=== PATIENT | male | born 1940 | race Caucasian/White ===

== ENCOUNTER → 2017-04-10 | Outpatient (CLI) | payer MEDICARE, OTHER ==
[2017-04-10 14:13] LABS: INTERNATIONAL RATION (INR) 1.11; PROTHROMBIN TIME 15.1 SEC (11.4-15.4)
== END ==
LOC: LAB 13:53
PROVIDERS: ATTEND Physician Assistant
DX: R79.1 Abnormal coagulation profile (principal); Z79.01 Long term (current) use of anticoagulants
CPT/HCPCS: 36415; 85610

== ENCOUNTER → 2017-05-20 | Outpatient (CLI) | payer MEDICARE, OTHER ==
[2017-05-20 12:04] LABS: INTERNATIONAL RATION (INR) 1.06; PROTHROMBIN TIME 14.5 SEC (11.4-15.4)
== END ==
LOC: LAB 11:48
PROVIDERS: ATTEND Physician Assistant
DX: Z51.81 Encounter for therapeutic drug level monitoring (principal); Z79.01 Long term (current) use of anticoagulants
CPT/HCPCS: 36415; 85610

== ENCOUNTER 2017-06-19 09:40 | Inpatient (IN) | payer MEDICARE, OTHER ==
--- NOTE | 2017-06-19 09:54 | ER Document Report ---
ED GI/ - General Stated Complaint: ABDOMINAL PAIN Time Seen by Provider: 06/19/17 09:54 Mode of Arrival: Medic Information source: Patient Notes: 77 yo male came by EMS, his roomate called EMS. c/o worsening left low abdomen hernia that starated 3 days ago resulting from hard coughing from dx Bronchitis (prednisone-augmentin), no sleep last night due to pain that has radiated to the lower right abomen. PCP: Goldie at [facility]. PMH: Afib, aortic valve replacement (TAVR), pacemaker,COPD, PVD, prostate cancer (injection-radiation) emphysema, spinal stenosis(pain), no abdominal surgeries. Last FM 2 days ago- normal. Takes Warfarin 5mg and digoxin 0.25. TRAVEL OUTSIDE OF THE [place] IN LAST 30 DAYS: No - Related Data Allergies/Adverse Reactions: No Known Drug Allergies Allergy (Verified 06/19/17 10:08) bees Allergy (Uncoded 06/19/17 10:08) Past Medical History - General Information source: Patient - Social History Smoking Status: Current Every Day Smoker Frequency of alcohol use: None Drug Abuse: None Lives with: Friend Family History: Reviewed & Not Pertinent - Past Medical History Cardiac Medical History: Reports: Hx Atrial Fibrillation, Hx Peripheral Vascular Disease, Hx Heart Murmur, Other - aortic valve replacement Pulmonary Medical History: Reports: Hx COPD Malignancy Medical History: Reports Hx Prostate Cancer Past Surgical History: Reports: Hx Cardiac Surgery - TAVR aortic valve, Hx Pacemaker Review of Systems - Review of Systems Constitutional: No symptoms reported EENT: No symptoms reported Cardiovascular: No symptoms reported Respiratory: See HPI Gastrointestinal: See HPI Genitourinary: No symptoms reported Male Genitourinary: No symptoms reported Musculoskeletal: No symptoms reported Skin: No symptoms reported Hematologic/Lymphatic: No symptoms reported Neurological/Psychological: No symptoms reported Physical Exam - Vital signs Vitals: Temp Pulse Resp BP Pulse Ox 98.8 F 96 22 H 133/52 H 81 L 06/19/17 09:51 06/19/17 09:51 06/19/17 09:51 06/19/17 09:51 06/19/17 09:51 Interpretation: Tachycardic - mild, Hypoxic - General General appearance: Appears well, Alert - HEENT Head: Normocephalic, Atraumatic Eyes: Normal Conjunctiva: Normal Pupils: PERRL Mucous membranes: Dry Pharynx: Normal Neck: Supple. No: Lymphadenopathy - Respiratory Respiratory status: No respiratory distress Chest status: Nontender Breath sounds: Rales - right base Chest palpation: Normal - Cardiovascular Rhythm: Regular Heart sounds: Normal auscultation Murmur: No - Abdominal Inspection: Normal Distension: No distension Bowel sounds: Normal Tenderness: Tender - mass left pelvis Organomegaly: No organomegaly - Back Back: Normal, Nontender. No: CVA tenderness - Extremities General upper extremity: Normal inspection, Nontender, Normal color, Normal ROM , Normal temperature General lower extremity: Normal inspection, Nontender, Normal color, Normal ROM , Normal temperature, Normal weight bearing. No: Cande's sign - Neurological Neuro grossly intact: Yes Cognition: Normal Orientation: AAOx4 [place] Coma Scale Eye Opening: Spontaneous [place] Coma Scale Verbal: Oriented [place] Coma Scale Motor: Obeys Commands [place] Coma Scale Total: 15 Speech: Normal Motor strength normal: LUE, RUE, LLE, RLE Sensory: Normal - Psychological Associated symptoms: Normal affect, Normal mood - Skin Skin Temperature: Warm Skin Moisture: Dry Skin Color: Normal Skin irregularity: negative: Rash Course - Re-evaluation Re-evalutation: 06/19/17 13:[address] Carpenter and will get the patient admitted for the right lower lobe pneumonia. I also consulted with Dr. Quesada the surgeon about the mass in his left lower quadrant he suspects that it may be a walled hematoma. The patient' s INR is 2.7 he said to hold the warfarin. Patient is requiring 3 L nasal cannula and the pulse ox is 95%. 06/19/17 13:[address] Obregon for hospitalist admission for pneumonia, LLQ mass 06/19/17 13:06 06/19/17 13:26 Dr. Quesada saw the patient and believes that this is a left lower quadrant walled hematoma recommends hematocrit every 8 hours a type and screen and to hold the Coumadin. He did say that the patient can be on a clear liquid diet. I am pending Dr. Obregon calling me back for admission. 06/19/17 13:42 Dr. Weinberg the hospitalist will admit the patient and I told him what Dr. Quesada recommended. - Vital Signs Vital signs: Temp Pulse Resp BP Pulse Ox 99.7 F 77 14 115/48 L 91 L 06/19/17 20:08 06/19/17 20:08 06/19/17 16:42 06/19/17 20:08 06/19/17 20:08 - Laboratory Result Diagrams: 06/19/17 18:00 06/19/17 09:01 Laboratory results interpreted by me: 06/19/17 06/19/17 06/19/17 09:01 09:01 09:01 WBC 24.8 H RBC 3.94 L Hgb 12.8 L Hct 37.6 L RDW 16.0 H Lymphocytes % Lymphocytes % (Manual) 12 L Absolute Neutrophils Abs Neuts (Manual) 18.4 H Absolute Monocytes Abs Monocytes (Manual) 3.2 H PT 30.0 H APTT 51.3 H Chloride 95 L Carbon Dioxide 35 H BUN 27 H Glucose 116 H Urine Protein Urine Urobilinogen 06/19/17 06/19/17 11:50 14:22 WBC 19.0 H RBC 3.22 L Hgb 10.6 L D Hct 30.8 L RDW 16.2 H Lymphocytes % 11.5 L Lymphocytes % (Manual) Absolute Neutrophils 14.1 H Abs Neuts (Manual) Absolute Monocytes 2.4 H Abs Monocytes (Manual) PT APTT Chloride Carbon Dioxide BUN Glucose Urine Protein 100 H Urine Urobilinogen 4.0 H Discharge - Discharge Clinical Impression: Abdominal or pelvic swelling, mass, or lump, left lower quadrant, Hematoma RLL pneumonia Qualifiers: Pneumonia type: due to unspecified organism Qualified Code(s): J18.1 - Lobar pneumonia, unspecified organism Atrial fibrillation Qualifiers: Atrial fibrillation type: unspecified Qualified Code(s): I48.91 - Unspecified atrial fibrillation Abdominal pain Qualifiers: Abdominal location: left lower quadrant Qualified Code(s): R10.32 - Left lower quadrant pain Condition: Stable Disposition: ADMITTED INPATIENT Admitting Provider: Hospitalist Unit Admitted: Telemetry
[2017-06-19] MEDS ORDERED: NORMAL SALINE 1000 ML 1,000 ML IV ONE (10:18)
[2017-06-19] MEDS ORDERED: MORPHINE SULFATE 10 MG/ML INJ IV ONE (10:20)
[2017-06-19] MEDS ORDERED: ONDANSETRON HCL INJ/PF 4 MG/2 ML SDV IV ONE (10:20)
[2017-06-19 10:52] LABS: HEMATOCRIT 37.6 % (37.9-51.0); HEMOGLOBIN 12.8 g/dL (13.5-17.0); MEAN CORPUSCULAR HEMOGLOBIN 32.4 pg (27.0-33.4); MEAN CORPUSCULAR HGB CONC 33.9 g/dL (32.0-36.0); MEAN CORPUSCULAR VOLUME 96 fl (80-97); PLATELET COUNT 258 10^3/uL (150-450); RED BLOOD COUNT 3.94 10^6/uL (4.35-5.55); WHITE BLOOD COUNT 24.8 10^3/uL (4.0-10.5)
[2017-06-19 11:16] LABS: PARTIAL THROMBOPLASTIN TIME 51.3 SEC (23.5-35.8)
[2017-06-19 11:20] LABS: ABSOLUTE MONOCYTES # (MANUAL) 3.2 10^3/uL (0.1-1.4); ABSOLUTE NEUTROPHILS# (MANUAL) 18.4 10^3/uL (1.7-8.2); ALANINE AMINOTRANSFERASE 32 U/L (21-72); ALBUMIN 3.8 g/dL (3.5-5.0); ALKALINE PHOSPHATASE 93 U/L (38-126); ANION GAP 10 (5-19); ASPARTATE AMINO TRANSFERASE 22 U/L (17-59); BASOPHILS % (MANUAL) 0 % (0-2); BILIRUBIN,DIRECT 0.4 mg/dL (0.0-0.4); BILIRUBIN,TOTAL 1.2 mg/dL (0.2-1.3); BLOOD UREA NITROGEN 27 mg/dL (7-20); CALCIUM 9.4 mg/dL (8.4-10.2); CARBON DIOXIDE 35 mmol/L (22-30); CHLORIDE 95 mmol/L (98-107); DIGOXIN 1.38 ng/mL (0.8-2.0); EOSINOPHILS % (MANUAL) 1 % (0-6); GLUCOSE 116 mg/dL (75-110); LIPASE 80.1 U/L (23-300); LYMPHOCYTES % (MANUAL) 12 % (13-45); MONOCYTES % (MANUAL) 13 % (3-13); POTASSIUM 4.4 mmol/L (3.6-5.0); SEGMENTED NEUTROPHILS % (MAN) 74 % (42-78); SODIUM 140.4 mmol/L (137-145); TOTAL CELLS COUNTED 100; TOTAL PROTEIN 6.7 g/dL (6.3-8.2)
[2017-06-19 11:22] LABS: ANISOCYTOSIS 1+
[2017-06-19 11:23] LABS: PLATELET COMMENT ADEQUATE; PLATELET LARGE PRESENT
[2017-06-19] MEDS ORDERED: PIPERACILLIN/TAZOBACTAM 3.375 GM VIAL IV ONE (11:43)
[2017-06-19] MEDS ORDERED: VANCOMYCIN HCL INJ 1000 MG VIAL IV ONE ×2 (11:54→14:34)
--- NOTE | 2017-06-19 12:10 | RADIOLOGY REPORT (SQ) ---
EXAM DESCRIPTION: CT ABD/PELVIS WITH IV ONLY COMPLETED DATE/TIME: 06/19/2017 11:56 am REASON FOR STUDY: abd pain COMPARISON: None. TECHNIQUE: CT scan of the abdomen and pelvis performed using helical scanning technique with dynamic intravenous contrast injection. No oral contrast. Images reviewed with lung, soft tissue, and bone windows. Reconstructed coronal and sagittal MPR images reviewed. Delayed images for evaluation of the urinary system also acquired. All images stored on PACS. All CT scanners at this facility use dose modulation, iterative reconstruction, and/or weight based d osing when appropriate to reduce radiation dose to as low as reasonably achievable (ALARA). [facility]: Dose Right [facility]: CareDose [facility]: Dose Right [facility]: Teradose 4D [facility]: [email or web address] CONTRAST TYPE AND DOSE: contrast/concentration: Isovue 370.00 mg/ml; Total Contrast Delivered: 74.0 ml; Total Saline Delivered: 66.1 ml RENAL FUNCTION: Creatinine 1.02 RADIATION DOSE: CT Rad equipment meets quality standard of care and radiation dose reduction techniq ues were employed. CTDIvol: 6.8 - 9.0 mGy. DLP: 887 mGy-cm.. LIMITATIONS: None. FINDINGS: LOWER CHEST: See separate report of the CT of the chest. LIVER: Normal size. No masses. No dilated ducts. SPLEEN: Normal size. No focal lesions. PANCREAS: No masses. No significant calcifications. No adjacent inflammation or peripancreatic fluid collections. Pancreatic duct not dilated. GALLBLADDER: Gallstones. No inflammatory changes to suggest cholecystitis. ADRENAL GLANDS: No significant masses or asymmetry. RIGHT KIDNEY AND URETER: No solid masses. No significant calcifications. No hydronephrosis or hyd roureter. LEFT KIDNEY AND URETER: No solid masses. No significant calcifications. No hydronephrosis or hydr oureter. AORTA AND VESSELS: No aneurysm. No dissection. Renal arteries, SMA, celiac without stenosis. RETROPERITONEUM: No retroperitoneal adenopathy, hemorrhage or masses. BOWEL AND PERITONEAL CAVITY: No masses or inflammatory changes. No free fluid or peritoneal masses. APPENDIX: Not visualized. PELVIS: The bladder is thick walled at 1.1 cm. Anterior and left of the bladder is a E heterogeneous soft tissue mass measuring 9.4 x 8 x 10 cm. Some central low density. No enhancement. Cannot be s eparated from the left abdominal wall. ABDOMINAL WALL: See above. BONES: Chronic degenerative changes. OTHER: No other significant finding. IMPRESSION: Pelvic mass on the left which cannot be from the abdominal wall. Differential is tumor versus diffuse hemorrhage. Thickened of the lateral wall Gallstones TECHNICAL DOCUMENTATION: JOB ID: [id number] Quality ID # [id number]: Final reports with documentation of one or more dose reduction techniques (e.g., Au tomated exposure control, adjustment of the mA and/or kV according to patient size, use of iterative reconstruction technique) 2010 [employer]- All Rights Reserved Reading location - IP/workstation name: [email or web address]
[2017-06-19 12:13] LABS: APPEARANCE,URINE CLEAR; BILIRUBIN,URINE NEGATIVE (NEGATIVE); COLOR,URINE YELLOW; GLUCOSE, URINE NEGATIVE (NEGATIVE); KETONES,URINE NEGATIVE (NEGATIVE); LEUKOCYTE ESTERASE,URINE NEGATIVE (NEGATIVE); NITRITE,URINE NEGATIVE (NEGATIVE); PROTEIN,URINE 100 mg/dL (NEGATIVE); URINE SPECIFIC GRAVITY 1.025
--- NOTE | 2017-06-19 12:23 | RADIOLOGY REPORT (SQ) ---
EXAM DESCRIPTION: CT CHEST WITHOUT COMPLETED DATE/TIME: 06/19/2017 11:56 am REASON FOR STUDY: rales right base, elevated white count COMPARISON: None. TECHNIQUE: CT scan performed of the chest without intravenous contrast. Images reviewed with lung, soft tissue and bone windows. Reconstructed coronal and sagittal MPR images reviewed. All images st ored on PACS. All CT scanners at this facility use dose modulation, iterative reconstruction, and/or weight based d osing when appropriate to reduce radiation dose to as low as reasonably achievable (ALARA). [facility]: Dose Right [facility]: CareDose [facility]: Dose Right [facility]: Teradose 4D [facility]: [employer] RADIATION DOSE: CT Rad equipment meets quality standard of care and radiation dose reduction techniq ues were employed. CTDIvol: 9.2 mGy. DLP: 337 mGy-cm. mGy. LIMITATIONS: Artifact associated with right side battery pack and pacemaker. FINDINGS: LUNGS AND PLEURA: Centrilobular emphysema. 2 cm pleural-based nodule left upper lobe. Se gmental airspace disease in the right lower lobe. No effusions. HILAR AND MEDIASTINAL STRUCTURES: Small mediastinal nodes measuring less than 1 cm in short axis. HEART AND VASCULAR STRUCTURES: Cardiomegaly. Prosthetic aortic valve. No pericardial effusion. UPPER ABDOMEN: See separate report of the CT of the abdomen. THYROID AND OTHER SOFT TISSUES: No masses. No adenopathy. BONES: Lytic lesion left rib adjacent to pleural-based mass. Several healed left rib fractures. HARDWARE: See above. OTHER: No other significant findings. IMPRESSION: 1. COPD. Right lower lobe pneumonia. 2. 2 cm nodule left upper lobe suspicious for carcinoma. TECHNICAL DOCUMENTATION: JOB ID: [id number] Quality ID # [id number]: Final reports with documentation of one or more dose reduction techniques (e.g., Au tomated exposure control, adjustment of the mA and/or kV according to patient size, use of iterative reconstruction technique) 2010 [employer]- All Rights Reserved Reading location - IP/workstation name: [email or web address]
[2017-06-19 12:25] LABS: VENOUS BLOOD BASE EXCESS 3.8 mmol/L; VENOUS BLOOD HCO3 30.2 mmol/L (20-32); VENOUS BLOOD PCO2 53.6 mmHg (35-63); VENOUS BLOOD PH 7.37 (7.30-7.42)
[2017-06-19] MEDS ORDERED: NORMAL SALINE 1000 ML 500 ML IV ONE ×2 (12:37→21:51)
[2017-06-19] MEDS: PIPERACILLIN SODIUM/TAZOBACTAM 3.375 GM in NORMAL SALINE 100 ML IV SCH (12:47)
[2017-06-19] MEDS ORDERED: LEVALBUTEROL HCL NEB 1.25 MG/3 ML AMPUL NEB PRN (14:22)
[2017-06-19 14:36] LABS: ABSOLUTE BASOPHILS # (AUTO) 0.2 10^3/uL (0.0-0.2); ABSOLUTE EOSINOPHILS # (AUTO) 0.1 10^3/uL (0.0-0.6); ABSOLUTE LYMPHOCYTES (AUTO) 2.2 10^3/uL (0.5-4.7); ABSOLUTE MONOCYTES (AUTO) 2.4 10^3/uL (0.1-1.4); ABSOLUTE NEUT (AUTO) 14.1 10^3/uL (1.7-8.2); BASOPHILS % (AUTO) 0.8 % (0-2); EOSINOPHILS % (AUTO) 0.4 % (0-6); HEMATOCRIT 30.8 % (37.9-51.0); LYMPHOCYTES % (AUTO) 11.5 % (13-45); MEAN CORPUSCULAR HEMOGLOBIN 32.9 pg (27.0-33.4); MEAN CORPUSCULAR HGB CONC 34.4 g/dL (32.0-36.0); MEAN CORPUSCULAR VOLUME 96 fl (80-97); MONOCYTES % (AUTO) 12.9 % (3-13); PLATELET COUNT 196 10^3/uL (150-450); RED BLOOD COUNT 3.22 10^6/uL (4.35-5.55); RED CELL DISTRIBUTION WIDTH 16.2 % (11.5-14.0); SEGMENTED NEUTROPHILS % (AUTO) 74.4 % (42-78); TOTAL CELLS COUNTED % (AUTO) 100 %
[2017-06-19] MEDS ORDERED: GUAIFENESIN 600 MG TABLET.SA PO PRN (14:38)
[2017-06-19] MEDS ORDERED: MELATONIN 5 MG TABLET PO PRN (14:38)
[2017-06-19] MEDS ORDERED: SENNOSIDES 8.6 MG PO PRN ×2 (14:38→20:19)
[2017-06-19] MEDS ORDERED: ONDANSETRON HCL INJ/PF 4 MG/2 ML SDV IV PRN (14:38)
[2017-06-19 14:39] LABS: HEMOGLOBIN 10.6 g/dL (13.5-17.0)
[2017-06-19] MEDS ORDERED: PHYTONADIONE INJ 1 MG/0.5 ML DISP.SYRIN INJ ONE (14:45)
[2017-06-19] MEDS ORDERED: PIPERACILLIN/TAZOBACTAM 3.375 GM VIAL IV SCH (14:45)
--- NOTE | 2017-06-19 15:28 | PDOC CONSULTATION ---
Consultation Consult Date: 06/19/17 Consult reason:: LLQ/Pelvic pains with Hematoma on CT scan History of Present Illness Admission Date/PCP: 06/19/17 14:30 YUMIKO ZAMBRANO PA-C Patient complains of: LLQ/Pelvic pains History of Present Illness: NATHANAEL LYONS is a 77 year old male on coumadin for AFib and aortic valve replacement c/o LLQ/pelvic pains for the past 2-3 days. Patient has been having severe bouts of coughing past few days. History of Prostate ca radiation tx. Past Medical History Cardiac Medical History: Reports: Atrial Fibrillation Pulmonary Medical History: Reports: Chronic Obstructive Pulmonary Disease (COPD) Musculoskeltal Medical History: Reports: Arthritis - back pains and had needle injections Past Surgical History Past Surgical History: Reports: Orthopedic Surgery - bilateral knee meniscus repair, Pacemaker, Valve Replacement Social History Smoking Status: Current Every Day Smoker Cigarettes Packs Per Day: 0.3 Frequency of Alcohol Use: Occasional - Advance Directive Resuscitation Status: Full Code Family History Parental Family History Reviewed: Yes - mother had aortic valve replacement but age 89 Children Family History Reviewed: No Sibling(s) Family History Reviewed.: No Medication/Allergy Home Medications: Amoxicillin/Potassium Clav [Amox-Clav 875-125 mg Tablet] 1 each PO BID 06/19/17 Digoxin [Lanoxin 0.125 mg Tablet] 0.25 mg PO DAILY 06/19/17 Gabapentin 600 mg PO BID 06/19/17 Guaifenesin [Mucus ER] 600 mg PO Q12H PRN 06/19/17 Melatonin 5 mg PO QHS PRN 06/19/17 Prednisone 20 mg PO DAILY 06/19/17 Sennosides [Natural Laxative] 8.6 mg PO ASDIR PRN 06/19/17 Warfarin Sodium 5 mg PO DAILY 06/19/17 Allergies/Adverse Reactions: No Known Drug Allergies Allergy (Verified 06/19/17 10:08) bees Allergy (Uncoded 06/19/17 10:08) Review of Systems Constitutional: PRESENT: other - no chills/fever Eyes: PRESENT: other - no visual/hearing changes Cardiovascular: PRESENT: other - no chest pains Respiratory: PRESENT: cough Gastrointestinal: PRESENT: abdominal pain - LLQ/pelvic pains Musculoskeletal: PRESENT: back pain Neurological: PRESENT: other - no seizures Endocrine: PRESENT: other - no polyuria Hematologic/Lymphatic: PRESENT: other - on coumadin but no easy bruising Physical Exam Vital Signs: Temp Pulse Resp BP Pulse Ox 97.5 F 12 135/63 H 97 06/19/17 09:57 06/19/17 14:02 06/19/17 14:02 06/19/17 14:02 General appearance: PRESENT: mild distress Head exam: PRESENT: atraumatic Eye exam: PRESENT: conjunctiva pink Mouth exam: PRESENT: moist Neck exam: PRESENT: full ROM Respiratory exam: PRESENT: decreased breath sounds - RLLobe area Cardiovascular exam: PRESENT: RRR Pulses: PRESENT: normal radial pulses Vascular exam: PRESENT: normal capillary refill GI/Abdominal exam: PRESENT: tenderness - at the LLQ/pelvic area Rectal exam: PRESENT: deferred Extremities exam: PRESENT: full ROM Musculoskeletal exam: PRESENT: ambulatory Neurological exam: PRESENT: alert, oriented to person, oriented to place, oriented to time, oriented to situation Psychiatric exam: PRESENT: appropriate affect Skin exam: PRESENT: normal color, warm Results Impressions: Abdomen/Pelvis CT 06/19/17 10:20 IMPRESSION: Pelvic mass on the left which cannot be from the abdominal wall. Differential is tumor versus diffuse hemorrhage. Thickened of the lateral wall Gallstones Chest CT 06/19/17 11:46 IMPRESSION: 1. COPD. Right lower lobe pneumonia. 2. 2 cm nodule left upper lobe suspicious for carcinoma. Assessment & Plan - Diagnosis (1) hematoma left Pelvis Is this a current diagnosis for this admission?: Yes - Time Time Spent: 30 to 50 Minutes - Plan Summary Plan Summary: Hold Coumadin Consult Cardiology to check for need of anticoagulation and timing of putting back Coumadin/Heparin Monitor H&H If HB precipitously drops may need to be transfuse with FFP and blood Will follow closely with you
[2017-06-19] MEDS ORDERED: SENNOSIDES/DOCUSATE 8.6-50 MG 1 EACH TABLET PO PRN (15:34)
[2017-06-19] MEDS ORDERED: PHYTONADIONE INJ 10 MG/1 ML AMPULE IV ONE (16:00)
[2017-06-19] MEDS: NORMAL SALINE 1000 ML 1,000 ML IV PRN (17:43)
[2017-06-19 19:27] LABS: HEMATOCRIT 35.7 % (37.9-51.0); HEMOGLOBIN 12.1 g/dL (13.5-17.0); MEAN CORPUSCULAR HEMOGLOBIN 32.5 pg (27.0-33.4); MEAN CORPUSCULAR HGB CONC 33.8 g/dL (32.0-36.0); MEAN CORPUSCULAR VOLUME 96 fl (80-97); PLATELET COUNT 231 10^3/uL (150-450); RED BLOOD COUNT 3.71 10^6/uL (4.35-5.55); RED CELL DISTRIBUTION WIDTH 16.2 % (11.5-14.0); WHITE BLOOD COUNT 23.5 10^3/uL (4.0-10.5)
--- NOTE | 2017-06-19 20:23 | PDOC H&P ---
History of Present Illness Admission Date/PCP: 06/19/17 14:30 YMUIKO ZAMBRANO PA-C History of Present Illness: 76 yo Male who describes significant coughing with yellow sputum production and fatigue approximately one week ago. He was diagnosed with acute bronchitis and placed on augmentin and prednisone. 4 days ago he began experiencing lower quadrant abdominal pain after a coughing spell. He thought this was an abdominal hernia. Pain intensified over the next several days. Patient has a PMH of chronic afib on coumadin, TAVR aortic valve replacement. CT abd/pel in the ED showed LLQ hematoma likely. Chest imaging showed a Right lower lobe PNA. Patient was started on Vanc/Zosyn in ED, and coumadin was stopped. Serial labs showed a Hgb drop from 12 to 10. Patient will be typed and crossed. A dose of IV vitamin K will be given. INR was 2.7. IVF support has been started. Patient has stable vital signs at the time of admission. Will be monitored closely as his coagulation status is reversed and blood loss monitored. Past Medical History Cardiac Medical History: Reports: Atrial Fibrillation, Peripheral Vascular Disease - describes hx of femoral and tibial artery partial blockages, Other - TAVR aortic valve replacement Pulmonary Medical History: Reports: Chronic Obstructive Pulmonary Disease (COPD) Renal/ Medical History: Reports: Other - BPH Musculoskeltal Medical History: Reports: Arthritis - back pains and had needle injections Past Surgical History Past Surgical History: Reports: Orthopedic Surgery - bilateral knee meniscus repair, Pacemaker, Valve Replacement Social History Smoking Status: Current Every Day Smoker Cigarettes Packs Per Day: 7 Number of Years Smokin Last Time Smoked: 06/19/17 Frequency of Alcohol Use: Occasional Hx Recreational Drug Use: No Drugs: None Hx Prescription Drug Abuse: No - Advance Directive Resuscitation Status: Full Code Family History Family History: DM Parental Family History Reviewed: Yes Children Family History Reviewed: No Sibling(s) Family History Reviewed.: No Medication/Allergy Home Medications: Amoxicillin/Potassium Clav [Amox-Clav 875-125 mg Tablet] 1 each PO BID 06/19/17 Digoxin [Lanoxin] 250 mcg PO DAILY 06/19/17 Gabapentin 600 mg PO BID 06/19/17 Guaifenesin [Mucinex] 600 mg PO Q12HP PRN 06/19/17 Melatonin 5 mg PO HSP PRN 06/19/17 Prednisone 20 mg PO DAILY 06/19/17 Sennosides [Senna Lax] 8.6 mg PO DAILYP PRN 06/19/17 Warfarin Sodium 5 mg PO DAILY 06/19/17 Allergies/Adverse Reactions: No Known Drug Allergies Allergy (Verified 06/19/17 10:08) bees Allergy (Uncoded 06/19/17 10:08) Review of Systems Constitutional: ABSENT: headache(s), night sweats Eyes: ABSENT: visual disturbances Ears: ABSENT: hearing changes Cardiovascular: ABSENT: chest pain, edema Respiratory: PRESENT: cough, dyspnea, sputum. ABSENT: hemoptysis Gastrointestinal: PRESENT: abdominal pain Integumentary: ABSENT: lesions, pruritus Neurological: ABSENT: focal weakness, frequent falls Psychiatric: ABSENT: anxiety, depression Endocrine: ABSENT: polyphagia, polyuria Physical Exam Vital Signs: Temp Pulse Resp BP Pulse Ox 97.4 F 81 14 118/53 L 97 06/19/17 16:28 06/19/17 16:42 06/19/17 16:42 06/19/17 16:28 06/19/17 16:42 Intake & Output 06/18/17 06/19/17 06/20/17 06:59 06:59 06:59 Intake Total 659 Balance 659 Weight 65.8 kg General appearance: PRESENT: no acute distress, cooperative Head exam: PRESENT: atraumatic, normocephalic Eye exam: PRESENT: EOMI, PERRLA Mouth exam: PRESENT: moist, neck supple Neck exam: PRESENT: full ROM. ABSENT: carotid bruit, JVD Respiratory exam: PRESENT: other - decreased lung sounds in bilateral bases. ABSENT: rales, rhonchi, wheezes Cardiovascular exam: PRESENT: RRR, +S1, +S2 Pulses: PRESENT: normal radial pulses, normal dorsalis pedis pul Vascular exam: PRESENT: normal capillary refill. ABSENT: pallor GI/Abdominal exam: PRESENT: normal bowel sounds, soft, tenderness. ABSENT: firm , guarding, rigid Extremities exam: ABSENT: calf tenderness, joint swelling Musculoskeletal exam: PRESENT: ambulatory, full ROM Neurological exam: PRESENT: alert, oriented to person, oriented to place, oriented to time, CN II-XII grossly intact Psychiatric exam: ABSENT: anxious, depressed Focused psych exam: ABSENT: delusional, paranoid Skin exam: ABSENT: cyanosis, mottled Results Impressions: Abdomen/Pelvis CT 06/19/17 10:20 IMPRESSION: Pelvic mass on the left which cannot be from the abdominal wall. Differential is tumor versus diffuse hemorrhage. Thickened of the lateral wall Gallstones Chest CT 06/19/17 11:46 IMPRESSION: 1. COPD. Right lower lobe pneumonia. 2. 2 cm nodule left upper lobe suspicious for carcinoma. Assessment & Plan - Diagnosis (1) Abdominal or pelvic swelling, mass, or lump, left lower quadrant Plan: Concern for hematoma from coughing trauma on coumadin. holding anticoagulation. Giving Vitamin K dose. Monitor Hgb serial labs. type cross blood, Surgery is following. vitals are stable at present. (2) RLL pneumonia Qualifiers: Pneumonia type: due to unspecified organism Qualified Code(s): J18.1 - Lobar pneumonia, unspecified organism Is this a current diagnosis for this admission?: Yes Plan: blood cultures pending continue empiric Vanc/Zosyn coverage, adjust with culture results. (3) Atrial fibrillation Qualifiers: Atrial fibrillation type: unspecified Qualified Code(s): I48.91 - Unspecified atrial fibrillation Plan: continue home medications for rate control. no anticoagulation due to hematoma. continue to monitor vitals on an intermediate care floor. - Time Time Spent with patient: 25 minutes - Inpatient Certification Based on my medical assessment, after consideration of the patient's comorbidities, presenting symptoms, or acuity I expect that the services needed warrant INPATIENT care.: Yes I certify that my determination is in accordance with my understanding of Medicare's requirements for reasonable and necessary INPATIENT services [42 CFR 412.3e].: Yes Medical Necessity: Need For IV Fluids, Risk of Complication if Not Cared For in Hospital
[2017-06-19] MEDS ORDERED: LACTULOSE SYRUP 20 GM/30 ML UDCUP PO ONE (21:30)
[2017-06-19] MEDS: GABAPENTIN 300 MG CAPSULE PO SCH (21:54)
[2017-06-19] MEDS: KETOROLAC TROMETHAMINE INJ/PF 30 MG/1 ML SDV IV PRN (21:55)
[2017-06-19] MEDS: NICOTINE 7 MG/24 HR PATCH.TD24 TD PRN (21:55)
[2017-06-20] MEDS: PIPERACILLIN SODIUM/TAZOBACTAM 3.375 GM in NORMAL SALINE 100 ML IV SCH ×5 (00:21→23:04)
[2017-06-20] MEDS: ACETAMINOPHEN 325 MG TABLET PO PRN (03:10)
[2017-06-20] MEDS ORDERED: HYDROMORPHONE HCL INJ/PF 2 MG/ML AMPULE IV ONE (04:00)
[2017-06-20 05:15] LABS: HEMATOCRIT 28.8 % (37.9-51.0); MEAN CORPUSCULAR VOLUME 96 fl (80-97); RED BLOOD COUNT 3.02 10^6/uL (4.35-5.55); WHITE BLOOD COUNT 20.8 10^3/uL (4.0-10.5)
[2017-06-20 05:16] LABS: MEAN CORPUSCULAR HGB CONC 34.6 g/dL (32.0-36.0); PLATELET COUNT 198 10^3/uL (150-450); RED CELL DISTRIBUTION WIDTH 16.1 % (11.5-14.0)
[2017-06-20 05:49] LABS: BLOOD UREA NITROGEN 23 mg/dL (7-20); CALCIUM 7.9 mg/dL (8.4-10.2); CARBON DIOXIDE 29 mmol/L (22-30); GLUCOSE 118 mg/dL (75-110); POTASSIUM 4.3 mmol/L (3.6-5.0)
[2017-06-20 05:52] LABS: FREE T4 (FREE THYROXINE) 1.61 ng/dL (0.78-2.19)
[2017-06-20 05:54] LABS: CHLORIDE 105 mmol/L (98-107); SODIUM 137.6 mmol/L (137-145)
[2017-06-20 05:55] LABS: ANION GAP 4 (5-19)
[2017-06-20 06:06] LABS: THYROID STIMULATING HORMONE 2.36 uIU/mL (0.47-4.68)
[2017-06-20 06:08] LABS: ABSOLUTE LYMPHOCYTES# (MANUAL) 1.9 10^3/uL (0.5-4.7); ABSOLUTE MONOCYTES # (MANUAL) 1.7 10^3/uL (0.1-1.4); ABSOLUTE NEUTROPHILS# (MANUAL) 17.3 10^3/uL (1.7-8.2); BASOPHILS % (MANUAL) 0 % (0-2); EOSINOPHILS % (MANUAL) 0 % (0-6); LYMPHOCYTES % (MANUAL) 9 % (13-45); MONOCYTES % (MANUAL) 8 % (3-13); SEGMENTED NEUTROPHILS % (MAN) 83 % (42-78); TOTAL CELLS COUNTED 100
[2017-06-20 06:10] LABS: ANISOCYTOSIS 1+; OVALOCYTES SLIGHT; PLATELET CLUMPS PRESENT; PLATELET COMMENT ADEQUATE; POIKILOCYTOSIS SLIGHT; POLYCHROMASIA 2+; TOXIC GRANULATION 1+
--- NOTE | 2017-06-20 07:55 | EKG REPORT ---
SEVERITY:- ABNORMAL ECG - ATRIAL FIB RIGHT BUNDLE BRANCH BLOCK BORDERLINE ST DEPRESSION, LATERAL LEADS : Confirmed by: Gonzalez Salgado MD 20-Jun-2017 07:54:29
[2017-06-20] MEDS ORDERED: VANCOMYCIN HCL 500 MG in NORMAL SALINE 100 ML IV SCH (08:00)
[2017-06-20] MEDS: GABAPENTIN 300 MG CAPSULE PO SCH ×2 (09:34→21:17)
[2017-06-20] MEDS: DIGOXIN 0.25 MG TABLET PO SCH (09:34)
[2017-06-20] MEDS: KETOROLAC TROMETHAMINE INJ/PF 30 MG/1 ML SDV IV PRN ×2 (09:35→19:10)
[2017-06-20] MEDS ORDERED: VANCOMYCIN HCL INJ 1000 MG VIAL IV SCH (10:00)
[2017-06-20] MEDS ORDERED: DIGOXIN 0.125 MG TABLET PO SCH (10:00)
[2017-06-20] MEDS ORDERED: LEVALBUTEROL HCL NEB 1.25 MG/3 ML AMPUL NEB ONE (12:30)
[2017-06-20 13:17] LABS: INTERNATIONAL RATION (INR) 1.23; PARTIAL THROMBOPLASTIN TIME 41.1 SEC (23.5-35.8); PROTHROMBIN TIME 16.3 SEC (11.4-15.4)
[2017-06-20] MEDS: LEVOFLOXACIN 750 MG/D5W RTU 750 MG/150 ML RTUPB IV SCH (14:18)
[2017-06-20] MEDS: LEVALBUTEROL HCL NEB 1.25 MG/3 ML AMPUL NEB SCH (16:24)
--- NOTE | 2017-06-20 16:35 | PDOC PROGRESS REPORT ---
Subjective Progress Note for:: 06/20/17 Subjective:: LLQ/pelvic pains less than yesterday Reason For Visit: ABDOMINAL HEMATOMA ON COUMADIN, PNEUMONIA Physical Exam Vital Signs: Temp Pulse Resp BP Pulse Ox 98.3 F 97 24 H 117/59 L 98 06/20/17 15:41 06/20/17 14:00 06/20/17 15:41 06/20/17 15:41 06/20/17 15:40 Intake & Output 06/19/17 06/20/17 06/21/17 06:59 06:59 06:59 Intake Total 2279 100 Output Total 500 125 Balance 1779 -25 Weight 66.9 kg Exam: Still with tenderness LLQ/Pelvic area but less than yesterday. Rest of abdomen is soft. Pt passing flatus but no BM yet. Results Laboratory Results: 06/20/17 04:55 06/20/17 04:55 06/19/17 06/20/17 06/20/17 18:00 04:55 04:55 WBC 23.5 H 20.8 H RBC 3.71 L 3.02 L Hgb 12.1 L 10.0 L D Hct 35.7 L 28.8 L MCV 96 96 MCH 32.5 33.0 MCHC 33.8 34.6 RDW 16.2 H 16.1 H Plt Count 231 198 Seg Neutrophils % Not Reportable Lymphocytes % Not Reportable Monocytes % Not Reportable Eosinophils % Not Reportable Basophils % Not Reportable Absolute Neutrophils Not Reportable Absolute Lymphocytes Not Reportable Absolute Monocytes Not Reportable Absolute Eosinophils Not Reportable Absolute Basophils Not Reportable Sodium 137.6 Potassium 4.3 Chloride 105 Carbon Dioxide 29 Anion Gap 4 L BUN 23 H Creatinine 1.10 Est GFR ( Amer) > 60 Est GFR (Non-Af Amer) > 60 Glucose 118 H Calcium 7.9 L Magnesium 1.7 TSH Free T4 06/20/17 04:55 WBC RBC Hgb Hct MCV MCH MCHC RDW Plt Count Seg Neutrophils % Lymphocytes % Monocytes % Eosinophils % Basophils % Absolute Neutrophils Absolute Lymphocytes Absolute Monocytes Absolute Eosinophils Absolute Basophils Sodium Potassium Chloride Carbon Dioxide Anion Gap BUN Creatinine Est GFR ( Amer) Est GFR (Non-Af Amer) Glucose Calcium Magnesium TSH 2.36 Free T4 1.61 Impressions: Abdomen/Pelvis CT 06/19/17 10:20 IMPRESSION: Pelvic mass on the left which cannot be from the abdominal wall. Differential is tumor versus diffuse hemorrhage. Thickened of the lateral wall Gallstones Chest CT 06/19/17 11:46 IMPRESSION: 1. COPD. Right lower lobe pneumonia. 2. 2 cm nodule left upper lobe suspicious for carcinoma. Assessment & Plan - Diagnosis (1) hematoma left Pelvis Is this a current diagnosis for this admission?: Yes - Time Time Spent with patient: 15-24 minutes - Plan Summary Plan Summary: OK to increase diet Continue to hold coumadin OK to start ambulation
[2017-06-20] MEDS: VANCOMYCIN HCL 500 MG in DEXTROSE 5%-WATER 100 ML IV SCH (20:01)
--- NOTE | 2017-06-20 22:02 | PDOC PROGRESS REPORT ---
Subjective Progress Note for:: 06/20/17 Subjective:: INR improved after Vitamin K dose. Would let it gradually continue to decrease. Patient's abdominal pain has improved on exam. Adding Levaquin to medicine coverage, given his continued significant leukocytosis, to treat his PNA. No growth in blood x2 or urine cultures. Reason For Visit: ABDOMINAL HEMATOMA ON COUMADIN, PNEUMONIA Physical Exam Vital Signs: Temp Pulse Resp BP Pulse Ox 98.7 F 86 20 122/59 L 91 L 06/20/17 21:11 06/20/17 21:11 06/20/17 21:11 06/20/17 21:11 06/20/17 21:11 Intake & Output 06/19/17 06/20/17 06/21/17 06:59 06:59 06:59 Intake Total 2279 1650 Output Total 500 125 Balance 1779 1525 Weight 66.9 kg General appearance: PRESENT: no acute distress, cooperative Head exam: PRESENT: atraumatic, normocephalic Eye exam: PRESENT: EOMI, PERRLA Ear exam: PRESENT: normal external ear exam. ABSENT: bleeding Mouth exam: PRESENT: moist, neck supple Neck exam: PRESENT: full ROM, tenderness. ABSENT: JVD Respiratory exam: PRESENT: crackles. ABSENT: accessory muscle use, rhonchi, wheezes Cardiovascular exam: PRESENT: irregular rhythm, +S1, +S2 Pulses: PRESENT: normal radial pulses, normal dorsalis pedis pul Vascular exam: PRESENT: normal capillary refill. ABSENT: pallor GI/Abdominal exam: PRESENT: mass - left lower quadrant, normal bowel sounds, tenderness. ABSENT: distended Extremities exam: ABSENT: calf tenderness, joint swelling Musculoskeletal exam: PRESENT: ambulatory, full ROM Neurological exam: PRESENT: alert, oriented to person, oriented to place, oriented to time, oriented to situation Psychiatric exam: ABSENT: agitated, anxious Focused psych exam: ABSENT: delusional, paranoid Skin exam: ABSENT: abrasion, cyanosis Results Laboratory Results: 06/20/17 04:55 06/20/17 04:55 06/20/17 06/20/17 06/20/17 04:55 04:55 04:55 WBC 20.8 H RBC 3.02 L Hgb 10.0 L D Hct 28.8 L MCV 96 MCH 33.0 MCHC 34.6 RDW 16.1 H Plt Count 198 Seg Neutrophils % Not Reportable Lymphocytes % Not Reportable Monocytes % Not Reportable Eosinophils % Not Reportable Basophils % Not Reportable Absolute Neutrophils Not Reportable Absolute Lymphocytes Not Reportable Absolute Monocytes Not Reportable Absolute Eosinophils Not Reportable Absolute Basophils Not Reportable Sodium 137.6 Potassium 4.3 Chloride 105 Carbon Dioxide 29 Anion Gap 4 L BUN 23 H Creatinine 1.10 Est GFR ( Amer) > 60 Est GFR (Non-Af Amer) > 60 Glucose 118 H Calcium 7.9 L Magnesium 1.7 TSH 2.36 Free T4 1.61 Impressions: Abdomen/Pelvis CT 06/19/17 10:20 IMPRESSION: Pelvic mass on the left which cannot be from the abdominal wall. Differential is tumor versus diffuse hemorrhage. Thickened of the lateral wall Gallstones Chest CT 06/19/17 11:46 IMPRESSION: 1. COPD. Right lower lobe pneumonia. 2. 2 cm nodule left upper lobe suspicious for carcinoma. Assessment & Plan - Diagnosis (2) RLL pneumonia Qualifiers: Pneumonia type: due to unspecified organism Qualified Code(s): J18.1 - Lobar pneumonia, unspecified organism Is this a current diagnosis for this admission?: Yes (3) Atrial fibrillation Qualifiers: Atrial fibrillation type: unspecified Qualified Code(s): I48.91 - Unspecified atrial fibrillation - Plan Summary Plan Summary: (1) Abdominal or pelvic swelling, mass, or lump, left lower quadrant Plan: Concern for hematoma from coughing trauma on coumadin. holding anticoagulation. Improved INR after vitamin k Monitor Hgb serial labs. type cross blood, Surgery is following. vitals are stable at present. no transfusion at present (2) RLL pneumonia Qualifiers: Pneumonia type: due to unspecified organism Qualified Code(s): J18.1 - Lobar pneumonia, unspecified organism Is this a current diagnosis for this admission?: Yes Plan: blood cultures pending continue empiric Vanc/Zosyn + levaquin coverage, adjust with culture results. (3) Atrial fibrillation Qualifiers: Atrial fibrillation type: unspecified Qualified Code(s): I48.91 - Unspecified atrial fibrillation Plan: continue home medications for rate control. no anticoagulation due to hematoma. continue to monitor vitals on an intermediate care floor.
[2017-06-20 22:17] LABS: HEMATOCRIT 25.5 % (37.9-51.0); HEMOGLOBIN 8.8 g/dL (13.5-17.0); MEAN CORPUSCULAR HEMOGLOBIN 33.1 pg (27.0-33.4); MEAN CORPUSCULAR HGB CONC 34.4 g/dL (32.0-36.0); MEAN CORPUSCULAR VOLUME 96 fl (80-97); PLATELET COUNT 189 10^3/uL (150-450); RED BLOOD COUNT 2.65 10^6/uL (4.35-5.55); RED CELL DISTRIBUTION WIDTH 15.8 % (11.5-14.0); WHITE BLOOD COUNT 19.5 10^3/uL (4.0-10.5)
[2017-06-21] MEDS: NICOTINE 7 MG/24 HR PATCH.TD24 TD PRN ×2 (00:24→22:27)
[2017-06-21] MEDS: LEVALBUTEROL HCL NEB 1.25 MG/3 ML AMPUL NEB SCH ×4 (00:36→23:40)
--- NOTE | 2017-06-21 01:59 | RADIOLOGY REPORT (SQ) ---
EXAM DESCRIPTION: CT ABD/PELVIS WITH IV ONLY CLINICAL HISTORY: 77 years Male, adb hematoma COMPARISON: 06/19/2017. TECHNIQUE: 72 mL Isovue-370 IV contrast. Coronal and sagittal reformat. This exam was performed according to our departmental dose-optimization program, which includes automated exposure control, adjustment of the mA and/or kV according to patient size and/or use of iterative reconstruction technique. FINDINGS: Moderate consolidation of the right lower lobe. Minimal bilateral pleural effusion. 7.5 x 8.1 x 8.6 cm, 67 HU, collection/mass of the left paracentral anterior pelvis with some involvement of the left rectus abdominis of the anterior pelvic wall consistent with hematoma including acute hemorrhagic components slightly evolved compared with prior exam from two days ago. Cholelithiasis. Moderate diffuse inflammatory appearance of intra-abdominal and intrapelvic fat. Mild diffuse urinary bladder wall thickening. Mild emphysematous hyperinflation of the lung bases. 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 Moderate coronary artery calcification. Cardiac stimulation leads. Atherosclerosis. Vacuum disc desiccation. Grade II L4 anterolisthesis, chronic right L4 spondylolysis. Partially imaged chronic posterior lateral rib deformities approximately the left fifth-seventh levels consistent with prior injury. Inferior liver, pancreas, spleen, adrenals, renal system, gastrointestinal tract, pelvic organs, lymphatics, vasculature, and musculoskeleton appear otherwise unremarkable. IMPRESSION: 1. An 8.6 cm left paracentral pelvic mass again noted involved in morphology suggesting a hemorrhagic/hematoma component. Differential diagnosis includes underlying neoplasm. 2. Moderate right lower lobar pneumonia.
[2017-06-21] MEDS: KETOROLAC TROMETHAMINE INJ/PF 30 MG/1 ML SDV IV PRN ×3 (05:01→22:28)
[2017-06-21] MEDS: PIPERACILLIN SODIUM/TAZOBACTAM 3.375 GM in NORMAL SALINE 100 ML IV SCH ×4 (05:02→23:54)
[2017-06-21] MEDS ORDERED: GUAIFENESIN 600 MG TABLET.SA PO PRN (08:05)
[2017-06-21] MEDS: VANCOMYCIN HCL 500 MG in DEXTROSE 5%-WATER 100 ML IV SCH (08:07)
[2017-06-21 08:09] LABS: HEMATOCRIT 25.2 % (37.9-51.0); HEMOGLOBIN 8.8 g/dL (13.5-17.0); MEAN CORPUSCULAR HEMOGLOBIN 33.5 pg (27.0-33.4); MEAN CORPUSCULAR VOLUME 96 fl (80-97); PLATELET COUNT 189 10^3/uL (150-450); RED BLOOD COUNT 2.64 10^6/uL (4.35-5.55); RED CELL DISTRIBUTION WIDTH 15.9 % (11.5-14.0); WHITE BLOOD COUNT 17.7 10^3/uL (4.0-10.5)
[2017-06-21 08:22] LABS: ALBUMIN 2.5 g/dL (3.5-5.0); BLOOD UREA NITROGEN 17 mg/dL (7-20); CHLORIDE 101 mmol/L (98-107); GLUCOSE 103 mg/dL (75-110); PHOSPHORUS 2.5 mg/dL (2.5-4.5); POTASSIUM 4.4 mmol/L (3.6-5.0)
[2017-06-21 08:24] LABS: INTERNATIONAL RATION (INR) 1.19; PARTIAL THROMBOPLASTIN TIME 42.4 SEC (23.5-35.8); PROTHROMBIN TIME 15.9 SEC (11.4-15.4)
[2017-06-21 08:26] LABS: VANCOMYCIN,TROUGH 7.1 ug/mL (5.0-20.0)
[2017-06-21 08:27] LABS: CARBON DIOXIDE 30 mmol/L (22-30); SODIUM 135.2 mmol/L (137-145)
[2017-06-21 08:30] LABS: ANION GAP 4 (5-19)
[2017-06-21] MEDS: NORMAL SALINE 1000 ML 1,000 ML IV PRN (08:30)
[2017-06-21] MEDS ORDERED: DIGOXIN 0.25 MG TABLET PO SCH (10:00)
[2017-06-21] MEDS: GABAPENTIN 300 MG CAPSULE PO SCH ×2 (10:34→22:28)
[2017-06-21] MEDS: DIGOXIN 0.25 MG TABLET PO SCH (10:34)
[2017-06-21] MEDS ORDERED: MAG HYDROX/AL HYDROX/SIMETH SUSP 30 ML UDCUP PO ONE ×2 (11:16→16:30)
[2017-06-21] MEDS ORDERED: LIDOCAINE 2% VISCOUS SOLN 20 ML UDCUP PO ONE ×2 (11:16→16:30)
[2017-06-21] MEDS ORDERED: METOCLOPRAMIDE HCL ORAL SOLN 10 MG/10 ML UDCUP PO ONE ×2 (11:16→16:30)
[2017-06-21 11:18] LABS: HEMATOCRIT 25.1 % (37.9-51.0); HEMOGLOBIN 8.6 g/dL (13.5-17.0); MEAN CORPUSCULAR HGB CONC 34.2 g/dL (32.0-36.0); MEAN CORPUSCULAR VOLUME 97 fl (80-97); PLATELET COUNT 189 10^3/uL (150-450); WHITE BLOOD COUNT 17.1 10^3/uL (4.0-10.5)
--- NOTE | 2017-06-21 15:03 | PDOC PROGRESS REPORT ---
Subjective Progress Note for:: 06/21/17 Subjective:: Less LLQ/pelvic pains Reason For Visit: ABDOMINAL HEMATOMA ON COUMADIN, PNEUMONIA Physical Exam Vital Signs: Temp Pulse Resp BP Pulse Ox 98.0 F 81 16 133/46 H 96 06/21/17 14:02 06/21/17 14:02 06/21/17 14:02 06/21/17 14:02 06/21/17 14:02 Intake & Output 06/20/17 06/21/17 06/22/17 06:59 06:59 06:59 Intake Total 2279 3200 0 Output Total 500 625 Balance 1779 2575 0 Weight 66.9 kg 70.2 kg Exam: Much less tender LLQ/Pelvic tenderness. Rest of abdomen remains soft and nontender Results Laboratory Results: 06/21/17 11:02 06/21/17 07:54 06/20/17 06/21/17 06/21/17 22:10 07:54 07:54 WBC 19.5 H 17.7 H RBC 2.65 L 2.64 L Hgb 8.8 L 8.8 L Hct 25.5 L 25.2 L MCV 96 96 MCH 33.1 33.5 H MCHC 34.4 35.0 RDW 15.8 H 15.9 H Plt Count 189 189 Sodium 135.2 L Potassium 4.4 Chloride 101 Carbon Dioxide 30 Anion Gap 4 L BUN 17 Creatinine 1.06 Est GFR ( Amer) > 60 Est GFR (Non-Af Amer) > 60 Glucose 103 Calcium 8.0 L Phosphorus 2.5 Albumin 2.5 L 06/21/17 11:02 WBC 17.1 H RBC 2.60 L Hgb 8.6 L Hct 25.1 L MCV 97 MCH 33.0 MCHC 34.2 RDW 16.0 H Plt Count 189 Sodium Potassium Chloride Carbon Dioxide Anion Gap BUN Creatinine Est GFR ( Amer) Est GFR (Non-Af Amer) Glucose Calcium Phosphorus Albumin Impressions: Chest CT 06/19/17 11:46 IMPRESSION: 1. COPD. Right lower lobe pneumonia. 2. 2 cm nodule left upper lobe suspicious for carcinoma. Abdomen/Pelvis CT 06/21/17 00:00 IMPRESSION: 1. An 8.6 cm left paracentral pelvic mass again noted involved in morphology suggesting a hemorrhagic/hematoma component. Differential diagnosis includes underlying neoplasm. 2. Moderate right lower lobar pneumonia. Assessment & Plan - Diagnosis (1) hematoma left Pelvis Is this a current diagnosis for this admission?: Yes - Time Time Spent with patient: 15-24 minutes - Plan Summary Plan Summary: OK to gradually increase diet. Continue to hold coumadin for at least 2 weeks. OK to ambulate May need Urology consult for possible underlying malignancy with the patient's history of prostate cancer.
[2017-06-21] MEDS: LEVOFLOXACIN 750 MG/D5W RTU 750 MG/150 ML RTUPB IV SCH (16:02)
[2017-06-21 18:15] LABS: HEMATOCRIT 28.1 % (37.9-51.0); HEMOGLOBIN 9.7 g/dL (13.5-17.0); MEAN CORPUSCULAR HEMOGLOBIN 32.4 pg (27.0-33.4); MEAN CORPUSCULAR HGB CONC 34.7 g/dL (32.0-36.0); MEAN CORPUSCULAR VOLUME 94 fl (80-97); PLATELET COUNT 181 10^3/uL (150-450); RED CELL DISTRIBUTION WIDTH 16.8 % (11.5-14.0); WHITE BLOOD COUNT 15.4 10^3/uL (4.0-10.5)
[2017-06-21] MEDS: VANCOMYCIN HCL 1,000 MG in DEXTROSE 5%-WATER 250 ML IV SCH (18:23)
[2017-06-21 19:50] LABS: HEMATOCRIT 31.3 % (37.9-51.0); HEMOGLOBIN 10.6 g/dL (13.5-17.0); MEAN CORPUSCULAR HEMOGLOBIN 32.1 pg (27.0-33.4); MEAN CORPUSCULAR HGB CONC 33.9 g/dL (32.0-36.0); MEAN CORPUSCULAR VOLUME 95 fl (80-97); RED BLOOD COUNT 3.31 10^6/uL (4.35-5.55); RED CELL DISTRIBUTION WIDTH 17.4 % (11.5-14.0)
[2017-06-21 20:16] LABS: ABSOLUTE LYMPHOCYTES# (MANUAL) 0.8 10^3/uL (0.5-4.7); ABSOLUTE MONOCYTES # (MANUAL) 2.1 10^3/uL (0.1-1.4); BASOPHILS % (MANUAL) 0 % (0-2); EOSINOPHILS % (MANUAL) 1 % (0-6); LYMPHOCYTES % (MANUAL) 4 % (13-45); MONOCYTES % (MANUAL) 11 % (3-13); SEGMENTED NEUTROPHILS % (MAN) 84 % (42-78); TOTAL CELLS COUNTED 100
[2017-06-21 20:18] LABS: POLYCHROMASIA SLIGHT; TOXIC GRANULATION SLIGHT; TOXIC VACUOLATION PRESENT
[2017-06-21 20:19] LABS: ANISOCYTOSIS 1+; PLATELET CLUMPS PRESENT; PLATELET COMMENT ADEQUATE; PLATELET COUNT 214 10^3/uL (150-450)
--- NOTE | 2017-06-21 22:21 | PDOC PROGRESS REPORT ---
Subjective Progress Note for:: 06/21/17 Subjective:: Patient with improving abdomen exam. Less tender today. Did have pain and discomfort last night that resulted in a repeat CT of his abdomen, repeated test actually showed improvement in his hematoma. Unfortunately labs showed a drop in his hemoglobin. Repeat labs showed persistent decline in hemoglobin and patient was given a 1 unit packed red blood cell transfusion. Since his transfusion hemoglobin has more than expected improved. We will continue to monitor patient. Vital signs are stable. Reason For Visit: ABDOMINAL HEMATOMA ON COUMADIN, PNEUMONIA Physical Exam Vital Signs: Temp Pulse Resp BP Pulse Ox 98.3 F 83 21 H 141/64 H 91 L 06/21/17 16:16 06/21/17 16:16 06/21/17 16:16 06/21/17 16:16 06/21/17 16:16 Intake & Output 06/20/17 06/21/17 06/22/17 06:59 06:59 06:59 Intake Total 2279 3200 1918 Output Total 500 625 525 Balance 1779 2575 1393 Weight 66.9 kg 70.2 kg General appearance: PRESENT: no acute distress, cooperative Head exam: PRESENT: atraumatic, normocephalic Eye exam: PRESENT: EOMI, PERRLA Ear exam: PRESENT: normal external ear exam. ABSENT: bleeding Mouth exam: PRESENT: moist, neck supple Neck exam: PRESENT: full ROM, tenderness. ABSENT: JVD Respiratory exam: PRESENT: crackles. ABSENT: accessory muscle use, rhonchi, wheezes Cardiovascular exam: PRESENT: irregular rhythm, +S1, +S2 Pulses: PRESENT: normal radial pulses, normal dorsalis pedis pul Vascular exam: PRESENT: normal capillary refill. ABSENT: pallor GI/Abdominal exam: PRESENT: mass - left lower quadrant, normal bowel sounds, improved tenderness. ABSENT: distended Extremities exam: ABSENT: calf tenderness, joint swelling Musculoskeletal exam: PRESENT: ambulatory, full ROM Neurological exam: PRESENT: alert, oriented to person, oriented to place, oriented to time, oriented to situation Psychiatric exam: ABSENT: agitated, anxious Focused psych exam: ABSENT: delusional, paranoid Skin exam: ABSENT: abrasion, cyanosis Results Laboratory Results: 06/21/17 19:40 06/21/17 07:54 06/20/17 06/21/17 06/21/17 22:10 07:54 07:54 WBC 19.5 H 17.7 H RBC 2.65 L 2.64 L Hgb 8.8 L 8.8 L Hct 25.5 L 25.2 L MCV 96 96 MCH 33.1 33.5 H MCHC 34.4 35.0 RDW 15.8 H 15.9 H Plt Count 189 189 Seg Neutrophils % Lymphocytes % Monocytes % Eosinophils % Basophils % Absolute Neutrophils Absolute Lymphocytes Absolute Monocytes Absolute Eosinophils Absolute Basophils Sodium 135.2 L Potassium 4.4 Chloride 101 Carbon Dioxide 30 Anion Gap 4 L BUN 17 Creatinine 1.06 Est GFR ( Amer) > 60 Est GFR (Non-Af Amer) > 60 Glucose 103 Calcium 8.0 L Phosphorus 2.5 Albumin 2.5 L 06/21/17 06/21/17 06/21/17 11:02 18:04 19:40 WBC 17.1 H 15.4 H 19.0 H RBC 2.60 L 3.00 L 3.31 L Hgb 8.6 L 9.7 L 10.6 L Hct 25.1 L 28.1 L 31.3 L MCV 97 94 95 MCH 33.0 32.4 32.1 MCHC 34.2 34.7 33.9 RDW 16.0 H 16.8 H 17.4 H Plt Count 189 181 214 Seg Neutrophils % Not Reportable Lymphocytes % Not Reportable Monocytes % Not Reportable Eosinophils % Not Reportable Basophils % Not Reportable Absolute Neutrophils Not Reportable Absolute Lymphocytes Not Reportable Absolute Monocytes Not Reportable Absolute Eosinophils Not Reportable Absolute Basophils Not Reportable Sodium Potassium Chloride Carbon Dioxide Anion Gap BUN Creatinine Est GFR ( Amer) Est GFR (Non-Af Amer) Glucose Calcium Phosphorus Albumin Impressions: Chest CT 06/19/17 11:46 IMPRESSION: 1. COPD. Right lower lobe pneumonia. 2. 2 cm nodule left upper lobe suspicious for carcinoma. Abdomen/Pelvis CT 06/21/17 00:00 IMPRESSION: 1. An 8.6 cm left paracentral pelvic mass again noted involved in morphology suggesting a hemorrhagic/hematoma component. Differential diagnosis includes underlying neoplasm. 2. Moderate right lower lobar pneumonia. Assessment & Plan - Diagnosis (2) RLL pneumonia Qualifiers: Pneumonia type: due to unspecified organism Qualified Code(s): J18.1 - Lobar pneumonia, unspecified organism Is this a current diagnosis for this admission?: Yes (3) Atrial fibrillation Qualifiers: Atrial fibrillation type: unspecified Qualified Code(s): I48.91 - Unspecified atrial fibrillation - Plan Summary Plan Summary: (1) Abdominal or pelvic swelling, mass, or lump, left lower quadrant Concern for hematoma from coughing trauma on coumadin. Concern for possible underlying malignancy contributing to this bleed. holding anticoagulation. Improved INR after vitamin k Monitor Hgb serial labs. Transfuse 1 unit of packed red blood cells today given patient's hemoglobin drop. Repeat CT performed overnight given his severe abdominal pain, actually showing decreased hematoma size. vitals are stable at present. (2) RLL pneumonia blood cultures pending continue empiric Vanc/Zosyn + levaquin coverage, adjust with culture results. (3) Atrial fibrillation continue home medications for rate control. no anticoagulation due to hematoma. continue to monitor vitals on an intermediate care floor.
[2017-06-22 00:50] LABS: HEMATOCRIT 27.9 % (37.9-51.0); HEMOGLOBIN 9.7 g/dL (13.5-17.0); MEAN CORPUSCULAR HEMOGLOBIN 32.8 pg (27.0-33.4); MEAN CORPUSCULAR HGB CONC 34.9 g/dL (32.0-36.0); MEAN CORPUSCULAR VOLUME 94 fl (80-97); PLATELET COUNT 188 10^3/uL (150-450); RED BLOOD COUNT 2.97 10^6/uL (4.35-5.55); WHITE BLOOD COUNT 18.6 10^3/uL (4.0-10.5)
[2017-06-22] MEDS: KETOROLAC TROMETHAMINE INJ/PF 30 MG/1 ML SDV IV PRN ×2 (04:59→21:28)
[2017-06-22] MEDS: VANCOMYCIN HCL 1,000 MG in DEXTROSE 5%-WATER 250 ML IV SCH ×2 (05:00→18:50)
[2017-06-22] MEDS: PIPERACILLIN SODIUM/TAZOBACTAM 3.375 GM in NORMAL SALINE 100 ML IV SCH ×4 (05:01→23:34)
[2017-06-22] MEDS: NORMAL SALINE 1000 ML 1,000 ML IV PRN (05:25)
[2017-06-22 06:45] LABS: ALBUMIN 2.6 g/dL (3.5-5.0); ANION GAP 6 (5-19); BLOOD UREA NITROGEN 15 mg/dL (7-20); CARBON DIOXIDE 29 mmol/L (22-30); CHLORIDE 99 mmol/L (98-107); GLUCOSE 117 mg/dL (75-110); PHOSPHORUS 2.6 mg/dL (2.5-4.5); POTASSIUM 4.7 mmol/L (3.6-5.0); SODIUM 133.5 mmol/L (137-145)
[2017-06-22] MEDS: LEVALBUTEROL HCL NEB 1.25 MG/3 ML AMPUL NEB SCH ×5 (08:50→23:39)
[2017-06-22] MEDS: DIGOXIN 0.25 MG TABLET PO SCH (09:04)
[2017-06-22] MEDS: GABAPENTIN 300 MG CAPSULE PO SCH ×2 (09:04→21:28)
--- NOTE | 2017-06-22 09:16 | PDOC PROGRESS REPORT ---
Subjective Progress Note for:: 06/22/17 Reason For Visit: ABDOMINAL HEMATOMA ON COUMADIN, PNEUMONIA Patient states he feels better; he is voiding without difficulty. Physical Exam Vital Signs: Temp Pulse Resp BP Pulse Ox 98.1 F 90 18 142/54 H 90 L 06/22/17 07:12 06/22/17 08:52 06/22/17 08:52 06/22/17 07:12 06/22/17 08:52 Intake & Output 06/21/17 06/22/17 06/23/17 06:59 06:59 06:59 Intake Total 3200 3593 Output Total 276 775 Balance 1275 2818 Weight 70.2 kg 70.6 kg General appearance: PRESENT: no acute distress GI/Abdominal exam: PRESENT: other - Soft, nontender, no peritoneal signs. Left suprapubic area mildly tender to deep palpation with the palpable time appreciated. Results Laboratory Results: 06/22/17 00:25 06/22/17 05:32 06/21/17 06/21/17 06/21/17 11:02 18:04 19:40 WBC 17.1 H 15.4 H 19.0 H RBC 2.60 L 3.00 L 3.31 L Hgb 8.6 L 9.7 L 10.6 L Hct 25.1 L 28.1 L 31.3 L MCV 97 94 95 MCH 33.0 32.4 32.1 MCHC 34.2 34.7 33.9 RDW 16.0 H 16.8 H 17.4 H Plt Count 189 181 214 Seg Neutrophils % Not Reportable Lymphocytes % Not Reportable Monocytes % Not Reportable Eosinophils % Not Reportable Basophils % Not Reportable Absolute Neutrophils Not Reportable Absolute Lymphocytes Not Reportable Absolute Monocytes Not Reportable Absolute Eosinophils Not Reportable Absolute Basophils Not Reportable Sodium Potassium Chloride Carbon Dioxide Anion Gap BUN Creatinine Est GFR ( Amer) Est GFR (Non-Af Amer) Glucose Calcium Phosphorus Albumin 06/22/17 06/22/17 00:25 05:32 WBC 18.6 H RBC 2.97 L Hgb 9.7 L Hct 27.9 L MCV 94 MCH 32.8 MCHC 34.9 RDW 17.0 H Plt Count 188 Seg Neutrophils % Lymphocytes % Monocytes % Eosinophils % Basophils % Absolute Neutrophils Absolute Lymphocytes Absolute Monocytes Absolute Eosinophils Absolute Basophils Sodium 133.5 L Potassium 4.7 Chloride 99 Carbon Dioxide 29 Anion Gap 6 BUN 15 Creatinine 1.02 Est GFR ( Amer) > 60 Est GFR (Non-Af Amer) > 60 Glucose 117 H Calcium 8.0 L Phosphorus 2.6 Albumin 2.6 L Impressions: Chest CT 06/19/17 11:46 IMPRESSION: 1. COPD. Right lower lobe pneumonia. 2. 2 cm nodule left upper lobe suspicious for carcinoma. Abdomen/Pelvis CT 06/21/17 00:00 IMPRESSION: 1. An 8.6 cm left paracentral pelvic mass again noted involved in morphology suggesting a hemorrhagic/hematoma component. Differential diagnosis includes underlying neoplasm. 2. Moderate right lower lobar pneumonia. Assessment & Plan - Diagnosis (1) Abdominal or pelvic swelling, mass, or lump, left lower quadrant Is this a current diagnosis for this admission?: Yes Plan: Presumed abdominal wall hematoma secondary to heaving, and anticoagulation therapy; hemoglobin down slightly; clinically the hematoma is stable. Recommendations 1. Reassurance; no indication for drainage at this time 2. Excision of anticoagulation balanced against the need for patient to be on blood thinner secondary to mechanical heart valve per his report. Would confer with trimmer meat or cardiothoracic surgeon regarding ongoing thinner management. 3. We will sign off; reconsult if needed.
[2017-06-22 12:29] LABS: HEMATOCRIT 27.9 % (37.9-51.0); HEMOGLOBIN 9.6 g/dL (13.5-17.0); MEAN CORPUSCULAR HEMOGLOBIN 32.6 pg (27.0-33.4); MEAN CORPUSCULAR HGB CONC 34.5 g/dL (32.0-36.0); MEAN CORPUSCULAR VOLUME 95 fl (80-97); PLATELET COUNT 202 10^3/uL (150-450); RED BLOOD COUNT 2.95 10^6/uL (4.35-5.55); RED CELL DISTRIBUTION WIDTH 17.1 % (11.5-14.0); WHITE BLOOD COUNT 17.8 10^3/uL (4.0-10.5)
[2017-06-22] MEDS: LEVOFLOXACIN 750 MG/D5W RTU 750 MG/150 ML RTUPB IV SCH (15:00)
[2017-06-22 18:43] LABS: HEMATOCRIT 28.6 % (37.9-51.0); HEMOGLOBIN 9.7 g/dL (13.5-17.0); MEAN CORPUSCULAR HEMOGLOBIN 32.2 pg (27.0-33.4); MEAN CORPUSCULAR VOLUME 95 fl (80-97); PLATELET COUNT 222 10^3/uL (150-450); RED BLOOD COUNT 3.02 10^6/uL (4.35-5.55); RED CELL DISTRIBUTION WIDTH 17.5 % (11.5-14.0); WHITE BLOOD COUNT 17.8 10^3/uL (4.0-10.5)
--- NOTE | 2017-06-22 21:21 | PDOC PROGRESS REPORT ---
Subjective Progress Note for:: 06/22/17 Subjective:: 77-year-old male with an abdominal wall hematoma on Coumadin therapy on admission. Coumadin therapy has been held and patient was initially given a dose of vitamin K. INR has improved and repeat CT abdomen showed a decreased size of his hematoma. Patient's cardiology team was called and case was discussed with , Dr. Mccollum partner, Dr. Anglin (unsure of spelling). 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 His Coumadin anticoagulation was for his atrial fibrillation and his TAVR valve has no requirement for anticoagulation per his cardiology team. They recommended leaving him off anticoagulation for at least 7 days. And recommended that he follow-up with Dr. Mccollum at discharge and be restarted by Dr. Mccollum himself. His partner predicted that he will likely just go back on Coumadin without a bridge at that time. This plan was related to the patient and his significant other and they were in agreement with this plan. Patient has been given 1 unit of packed red blood cell transfusion during this hospitalization at present. Continue to monitor his hemoglobin. On exam it appears that his hematoma may be tracking down into his scrotum. This may explain the hemoglobin drop that was addressed with a 1 unit of packed red cells despite his repeat CT showing the hematoma size decrease. Please continue to evaluate patient's scrotum and lower abdomen during his exams and monitor hemoglobin. Reason For Visit: ABDOMINAL HEMATOMA ON COUMADIN, PNEUMONIA Physical Exam Vital Signs: Temp Pulse Resp BP Pulse Ox 98.8 F 87 18 147/54 H 94 06/22/17 15:00 06/22/17 15:51 06/22/17 15:51 06/22/17 15:00 06/22/17 15:51 Intake & Output 06/21/17 06/22/17 06/23/17 06:59 06:59 06:59 Intake Total 3200 3593 1386 Output Total 625 775 200 Balance 2575 2818 1186 Weight 70.2 kg 70.6 kg General appearance: PRESENT: no acute distress, cooperative, Alert and oriented x3 Head exam: PRESENT: atraumatic, normocephalic Eye exam: PRESENT: EOMI, PERRLA Ear exam: PRESENT: normal external ear exam. ABSENT: bleeding Mouth exam: PRESENT: moist, neck supple Neck exam: PRESENT: full ROM, tenderness. ABSENT: JVD Respiratory exam: PRESENT: crackles. ABSENT: accessory muscle use, rhonchi, wheezes Cardiovascular exam: PRESENT: irregular rhythm, +S1, +S2 Pulses: PRESENT: normal radial pulses, normal dorsalis pedis pul Vascular exam: PRESENT: normal capillary refill. ABSENT: pallor GI/Abdominal exam: PRESENT: mass - left lower quadrant, normal bowel sounds, improved tenderness. : subcutaneous blood noted in scrotal exam, non-tender Extremities exam: ABSENT: calf tenderness, joint swelling Musculoskeletal exam: PRESENT: ambulatory, full ROM Neurological exam: PRESENT: alert, oriented to person, oriented to place, oriented to time, oriented to situation Psychiatric exam: ABSENT: agitated, anxious Focused psych exam: ABSENT: delusional, paranoid Skin exam: ABSENT: abrasion, cyanosis Results Laboratory Results: 06/22/17 18:07 06/22/17 05:32 06/22/17 06/22/17 06/22/17 00:25 05:32 12:09 WBC 18.6 H 17.8 H RBC 2.97 L 2.95 L Hgb 9.7 L 9.6 L Hct 27.9 L 27.9 L MCV 94 95 MCH 32.8 32.6 MCHC 34.9 34.5 RDW 17.0 H 17.1 H Plt Count 188 202 Sodium 133.5 L Potassium 4.7 Chloride 99 Carbon Dioxide 29 Anion Gap 6 BUN 15 Creatinine 1.02 Est GFR ( Amer) > 60 Est GFR (Non-Af Amer) > 60 Glucose 117 H Calcium 8.0 L Phosphorus 2.6 Albumin 2.6 L 06/22/17 18:07 WBC 17.8 H RBC 3.02 L Hgb 9.7 L Hct 28.6 L MCV 95 MCH 32.2 MCHC 34.0 RDW 17.5 H Plt Count 222 Sodium Potassium Chloride Carbon Dioxide Anion Gap BUN Creatinine Est GFR ( Amer) Est GFR (Non-Af Amer) Glucose Calcium Phosphorus Albumin Impressions: Chest CT 06/19/17 11:46 IMPRESSION: 1. COPD. Right lower lobe pneumonia. 2. 2 cm nodule left upper lobe suspicious for carcinoma. Abdomen/Pelvis CT 06/21/17 00:00 IMPRESSION: 1. An 8.6 cm left paracentral pelvic mass again noted involved in morphology suggesting a hemorrhagic/hematoma component. Differential diagnosis includes underlying neoplasm. 2. Moderate right lower lobar pneumonia. Assessment & Plan - Plan Summary Plan Summary: (1) Abdominal or pelvic swelling, mass, or lump, left lower quadrant Concern for hematoma from coughing trauma on coumadin. Concern for possible underlying malignancy contributing to this bleed. OP f/u for this holding anticoagulation. Improved INR after vitamin k Monitor Hgb serial labs. Transfuse 1 unit of packed red blood cells during this hospitalization due to hemoglobin drop. Repeat CT performed actually showing decreased hematoma size. vitals are stable today. (2) RLL pneumonia blood cultures pending continue empiric Vanc/Zosyn/levaquin coverage, adjust with culture results. leukocytosis in part is likely secondary to hematoma (3) Atrial fibrillation continue home medications for rate control. no anticoagulation due to hematoma. Hold coumadin for at least 7 days, his cardiology team recommended f/u with Dr. Mccollum, Cardiology, after d/c and Dr. Castillo will restart anticoagulation continue to monitor vitals on an intermediate care floor. (4) TAVR, Aortic Valve no anticoagulation needed per his Cardiology team. valve was placed several years ago.
[2017-06-23 01:06] LABS: HEMATOCRIT 26.9 % (37.9-51.0); HEMOGLOBIN 9.3 g/dL (13.5-17.0); MEAN CORPUSCULAR HEMOGLOBIN 32.5 pg (27.0-33.4); MEAN CORPUSCULAR HGB CONC 34.5 g/dL (32.0-36.0); MEAN CORPUSCULAR VOLUME 94 fl (80-97); PLATELET COUNT 214 10^3/uL (150-450); RED BLOOD COUNT 2.85 10^6/uL (4.35-5.55); RED CELL DISTRIBUTION WIDTH 17.1 % (11.5-14.0); WHITE BLOOD COUNT 18.1 10^3/uL (4.0-10.5)
[2017-06-23] MEDS: NICOTINE 7 MG/24 HR PATCH.TD24 TD PRN ×2 (01:31→23:54)
[2017-06-23] MEDS: LEVALBUTEROL HCL NEB 1.25 MG/3 ML AMPUL NEB SCH ×6 (04:30→23:16)
[2017-06-23] MEDS: KETOROLAC TROMETHAMINE INJ/PF 30 MG/1 ML SDV IV PRN ×2 (04:41→09:43)
[2017-06-23] MEDS: PIPERACILLIN SODIUM/TAZOBACTAM 3.375 GM in NORMAL SALINE 100 ML IV SCH ×2 (06:19→13:02)
[2017-06-23] MEDS: VANCOMYCIN HCL 1,000 MG in DEXTROSE 5%-WATER 250 ML IV SCH (06:21)
[2017-06-23 06:54] LABS: VANCOMYCIN,TROUGH 14.3 ug/mL (5.0-20.0)
[2017-06-23] MEDS: GABAPENTIN 300 MG CAPSULE PO SCH ×2 (09:43→21:49)
[2017-06-23] MEDS: DIGOXIN 0.25 MG TABLET PO SCH (09:43)
[2017-06-23 13:25] LABS: HEMATOCRIT 28.5 % (37.9-51.0); HEMOGLOBIN 9.8 g/dL (13.5-17.0); MEAN CORPUSCULAR HEMOGLOBIN 32.8 pg (27.0-33.4); MEAN CORPUSCULAR HGB CONC 34.4 g/dL (32.0-36.0); MEAN CORPUSCULAR VOLUME 96 fl (80-97); PLATELET COUNT 227 10^3/uL (150-450); RED BLOOD COUNT 2.99 10^6/uL (4.35-5.55); RED CELL DISTRIBUTION WIDTH 17.4 % (11.5-14.0)
--- NOTE | 2017-06-23 14:14 | PDOC PROGRESS REPORT ---
Subjective Progress Note for:: 06/23/17 Subjective:: Doing better. Abdominal pain decreased. Still feeling SOB from PNA. Denies fevers, chills, CP, NV. PO intake good. Reason For Visit: ABDOMINAL HEMATOMA ON COUMADIN, PNEUMONIA Physical Exam Vital Signs: Temp Pulse Resp BP Pulse Ox 98.5 F 90 21 H 153/65 H 90 L 06/23/17 11:58 06/23/17 14:00 06/23/17 11:58 06/23/17 11:58 06/23/17 11:58 Intake & Output 06/22/17 06/23/17 06/24/17 06:59 06:59 06:59 Intake Total 3593 3023 100 Output Total 775 900 200 Balance 2818 2123 -100 Weight 70.6 kg 69.2 kg General appearance: PRESENT: no acute distress, cooperative, well-developed, well-nourished, other - Sitting in bedside chair Mouth exam: PRESENT: moist Respiratory exam: PRESENT: unlabored, other - Supplemental O2 use. ABSENT: tachypnea Cardiovascular exam: PRESENT: irregular rhythm. ABSENT: tachycardia GI/Abdominal exam: PRESENT: soft. ABSENT: tenderness Neurological exam: PRESENT: alert, awake, CN II-XII grossly intact Psychiatric exam: PRESENT: normal mood Results Laboratory Results: 06/23/17 12:53 06/23/17 06:03 06/22/17 06/23/17 06/23/17 18:07 00:16 06:03 WBC 17.8 H 18.1 H RBC 3.02 L 2.85 L Hgb 9.7 L 9.3 L Hct 28.6 L 26.9 L MCV 95 94 MCH 32.2 32.5 MCHC 34.0 34.5 RDW 17.5 H 17.1 H Plt Count 222 214 Creatinine 0.97 Est GFR ( Amer) > 60 Est GFR (Non-Af Amer) > 60 06/23/17 12:53 WBC 18.0 H RBC 2.99 L Hgb 9.8 L Hct 28.5 L MCV 96 MCH 32.8 MCHC 34.4 RDW 17.4 H Plt Count 227 Creatinine Est GFR ( Amer) Est GFR (Non-Af Amer) Impressions: Chest CT 06/19/17 11:46 IMPRESSION: 1. COPD. Right lower lobe pneumonia. 2. 2 cm nodule left upper lobe suspicious for carcinoma. Abdomen/Pelvis CT 06/21/17 00:00 IMPRESSION: 1. An 8.6 cm left paracentral pelvic mass again noted involved in morphology suggesting a hemorrhagic/hematoma component. Differential diagnosis includes underlying neoplasm. 2. Moderate right lower lobar pneumonia. Assessment & Plan - Diagnosis (1) Hematoma Is this a current diagnosis for this admission?: Yes Plan: Most likely due to coughing trauma while on coumadin. Case has been discussed with patient's Cardiology team (primary is Dr. Mccollum, d/w partner, Dr. Anglin ) who is fine keeping off Coumadin for 1 week and re-starting after seeing as outpatient - Hg stable over last 48 hours - Received 1u pRBC during this admission - Repeat CT: decreased hematoma size - Seen by general surgery who agreed with monitoring, now signed off (2) Atrial fibrillation Qualifiers: Atrial fibrillation type: unspecified Qualified Code(s): I48.91 - Unspecified atrial fibrillation Is this a current diagnosis for this admission?: No Plan: Chronic Afib - On Digoxin. For CVA prevention on Coumadin, per above - Patient expressed interest in switching to oral anticoagulant. I discussed risks/benefits. Overall I think would be a great idea however will defer to patient's customer liaison to make change - Continue to hold coumadin for now. (3) RLL pneumonia Qualifiers: Pneumonia type: due to unspecified organism Qualified Code(s): J18.1 - Lobar pneumonia, unspecified organism Is this a current diagnosis for this admission?: Yes Plan: Currnetly on empiric Vanc/Zosyn/levaquin coverage - Blood cultures NGTD at 4 days - Given improvement in clinical course, will d/c Vanc and Zosyn today (06/23). If patient stable on Levaquin can give as outpatient to complete course. - Time Time Spent with patient: 15-24 minutes Anticipated discharge: Home with Homehealth Within: within 24 hours, within 48 hours
[2017-06-23] MEDS: LEVOFLOXACIN 750 MG/D5W RTU 750 MG/150 ML RTUPB IV SCH (15:22)
[2017-06-23] MEDS: TRAMADOL HCL 50 MG TABLET PO PRN ×2 (15:24→21:49)
[2017-06-24] MEDS: LEVALBUTEROL HCL NEB 1.25 MG/3 ML AMPUL NEB SCH ×6 (04:21→23:45)
[2017-06-24 06:27] LABS: ABSOLUTE BASOPHILS # (AUTO) 0.2 10^3/uL (0.0-0.2); ABSOLUTE EOSINOPHILS # (AUTO) 0.3 10^3/uL (0.0-0.6); ABSOLUTE MONOCYTES (AUTO) 2.1 10^3/uL (0.1-1.4); ABSOLUTE NEUT (AUTO) 16.1 10^3/uL (1.7-8.2); BASOPHILS % (AUTO) 0.9 % (0-2); EOSINOPHILS % (AUTO) 1.3 % (0-6); HEMATOCRIT 27.4 % (37.9-51.0); HEMOGLOBIN 9.4 g/dL (13.5-17.0); LYMPHOCYTES % (AUTO) 5.3 % (13-45); MEAN CORPUSCULAR HEMOGLOBIN 32.5 pg (27.0-33.4); MEAN CORPUSCULAR HGB CONC 34.3 g/dL (32.0-36.0); MEAN CORPUSCULAR VOLUME 95 fl (80-97); MONOCYTES % (AUTO) 10.8 % (3-13); PLATELET COUNT 237 10^3/uL (150-450); RED BLOOD COUNT 2.89 10^6/uL (4.35-5.55); RED CELL DISTRIBUTION WIDTH 16.7 % (11.5-14.0); SEGMENTED NEUTROPHILS % (AUTO) 81.7 % (42-78); TOTAL CELLS COUNTED % (AUTO) 100 %; WHITE BLOOD COUNT 19.7 10^3/uL (4.0-10.5)
[2017-06-24] MEDS: TRAMADOL HCL 50 MG TABLET PO PRN (06:38)
[2017-06-24] MEDS: DIGOXIN 0.25 MG TABLET PO SCH (09:34)
[2017-06-24] MEDS: GABAPENTIN 300 MG CAPSULE PO SCH ×2 (09:34→21:09)
[2017-06-24] MEDS: LEVOFLOXACIN 750 MG TABLET PO SCH (13:31)
[2017-06-24] MEDS: LEVOFLOXACIN 750 MG/D5W RTU 750 MG/150 ML RTUPB IV SCH (13:32)
[2017-06-24] MEDS ORDERED: TIZANIDINE HCL 4 MG TABLET PO SCH (18:00)
--- NOTE | 2017-06-24 18:07 | PDOC PROGRESS REPORT ---
Subjective Progress Note for:: 06/24/17 Subjective:: Complains of pain in his right shoulder primarily because he has some broken ribs. He states that is even worse than the pain in the private area. Review of system All organ systems evaluated and negative except as in subjective All significant laboratories and diagnostics have been reviewed Reason For Visit: ABDOMINAL HEMATOMA ON COUMADIN, PNEUMONIA Physical Exam Vital Signs: Temp Pulse Resp BP Pulse Ox 97.8 F 111 H 18 139/64 H 92 06/24/17 03:03 06/24/17 04:21 06/24/17 04:21 06/24/17 03:03 06/24/17 04:21 Intake & Output 06/23/17 06/24/17 06/25/17 06:59 06:59 06:59 Intake Total 3023 1924 Output Total 900 800 Balance 2123 1124 Weight 69.2 kg 75.3 kg General appearance: PRESENT: cooperative, well-developed, well-nourished Head exam: PRESENT: atraumatic, normocephalic Eye exam: PRESENT: conjunctiva pink, EOMI, PERRLA Mouth exam: PRESENT: moist Neck exam: PRESENT: full ROM. ABSENT: JVD, lymphadenopathy, tenderness Respiratory exam: PRESENT: clear to auscultation leah Cardiovascular exam: ABSENT: diastolic murmur, irregular rhythm, systolic murmur GI/Abdominal exam: PRESENT: normal bowel sounds, soft. ABSENT: tenderness Gentrourinary exam: PRESENT: scrotal swelling Extremities exam: PRESENT: full ROM. ABSENT: pedal edema Musculoskeletal exam: PRESENT: ambulatory Neurological exam: PRESENT: alert, awake, oriented to person, oriented to place , oriented to time, oriented to situation, CN II-XII grossly intact Psychiatric exam: PRESENT: appropriate affect, normal mood Skin exam: PRESENT: erythema Results Laboratory Results: 06/24/17 05:32 06/23/17 06:03 06/23/17 06/24/17 12:53 05:32 WBC 18.0 H 19.7 H RBC 2.99 L 2.89 L Hgb 9.8 L 9.4 L Hct 28.5 L 27.4 L MCV 96 95 MCH 32.8 32.5 MCHC 34.4 34.3 RDW 17.4 H 16.7 H Plt Count 227 237 Seg Neutrophils % 81.7 H Lymphocytes % 5.3 L Monocytes % 10.8 Eosinophils % 1.3 Basophils % 0.9 Absolute Neutrophils 16.1 H Absolute Lymphocytes 1.0 Absolute Monocytes 2.1 H Absolute Eosinophils 0.3 Absolute Basophils 0.2 Impressions: Chest CT 06/19/17 11:46 IMPRESSION: 1. COPD. Right lower lobe pneumonia. 2. 2 cm nodule left upper lobe suspicious for carcinoma. Abdomen/Pelvis CT 06/21/17 00:00 IMPRESSION: 1. An 8.6 cm left paracentral pelvic mass again noted involved in morphology suggesting a hemorrhagic/hematoma component. Differential diagnosis includes underlying neoplasm. 2. Moderate right lower lobar pneumonia. Assessment & Plan - Diagnosis (1) Atrial fibrillation Qualifiers: Atrial fibrillation type: unspecified Qualified Code(s): I48.91 - Unspecified atrial fibrillation Is this a current diagnosis for this admission?: No Plan: Stable (2) Hematoma Is this a current diagnosis for this admission?: Yes Plan: Continue with pain management. (3) Rib fractures Qualifiers: Rib fracture type: multiple ribs Laterality: right Is this a current diagnosis for this admission?: Yes Plan: Will add muscle relaxer. - Time Time Spent with patient: 15-24 minutes Medications reviewed and adjusted accordingly: Yes Anticipated discharge: Home with Homehealth Within: within 48 hours - Inpatient Certification Based on my medical assessment, after consideration of the patient's comorbidities, presenting symptoms, or acuity I expect that the services needed warrant INPATIENT care.: Yes I certify that my determination is in accordance with my understanding of Medicare's requirements for reasonable and necessary INPATIENT services [42 CFR 412.3e].: Yes Medical Necessity: Need Close Monitoring Due to Risk of Patient Decompensation
[2017-06-25] MEDS: NICOTINE 7 MG/24 HR PATCH.TD24 TD PRN (01:48)
[2017-06-25] MEDS: LEVALBUTEROL HCL NEB 1.25 MG/3 ML AMPUL NEB SCH ×5 (05:12→20:23)
[2017-06-25] MEDS ORDERED: TIZANIDINE HCL 4 MG TABLET PO SCH (10:00)
[2017-06-25] MEDS: DIGOXIN 0.25 MG TABLET PO SCH (10:15)
[2017-06-25] MEDS: GABAPENTIN 300 MG CAPSULE PO SCH ×2 (10:15→21:49)
[2017-06-25] MEDS: LEVOFLOXACIN 750 MG TABLET PO SCH (13:12)
--- NOTE | 2017-06-25 14:46 | RADIOLOGY REPORT (SQ) ---
EXAM DESCRIPTION: CT ABD/PELVIS WITH IV ONLY COMPLETED DATE/TIME: 06/25/2017 2:16 pm REASON FOR STUDY: follow up hematoma/hypotension COMPARISON: CT abdomen pelvis 06/21/2017, 06/19/2017 TECHNIQUE: CT scan of the abdomen and pelvis performed using helical scanning technique with dynamic intravenous contrast injection. No oral contrast. Images reviewed with lung, soft tissue, and bone windows. Reconstructed coronal and sagittal MPR images reviewed. Delayed images for evaluation of the urinary system also acquired. All images stored on PACS. All CT scanners at this facility use dose modulation, iterative reconstruction, and/or weight based d osing when appropriate to reduce radiation dose to as low as reasonably achievable (ALARA). [facility]: Dose Right [facility]: CareDose [facility]: Dose Right [facility]: Teradose 4D [facility]: MyLikes CONTRAST TYPE AND DOSE: contrast/concentration: Isovue 370.00 mg/ml; Total Contrast Delivered: 79.0 ml; Total Saline Delivered: 68.0 ml RENAL FUNCTION: Creatinine 1.02 RADIATION DOSE: CT Rad equipment meets quality standard of care and radiation dose reduction techniq ues were employed. CTDIvol: 7.4 - 8.4 mGy. DLP: 839 mGy-cm.. LIMITATIONS: None. FINDINGS: In the left lower quadrant, a rectus sheath and space of Retzius hematoma is present measu ring about 9 x 7 cm in size. There has been tail of retroperitoneal hemorrhage the left psoas muscle and pararenal fat. These findings are unchanged. Hematoma measured 9 x 7.6 cm in size on 06/21/2017 and 06/19/2017. No other areas or retroperitoneal hemorrhage are identified. There is third-spacing with edema in the subcutaneous fat. LOWER CHEST: There is now small right pleural effusion. Right and left basilar airspace disease is p resent atelectasis versus pneumonia. Lung bases otherwise demonstrate obstructive disease. Aortic v alve replacement. Pacemaker. LIVER: Normal size. No masses. No dilated ducts. SPLEEN: Normal size. No focal lesions. PANCREAS: No masses. No significant calcifications. No adjacent inflammation or peripancreatic fluid collections. Pancreatic duct not dilated. GALLBLADDER: Single stone in the gallbladder neck. No pericholecystic fluid ADRENAL GLANDS: No significant masses or asymmetry. RIGHT KIDNEY AND URETER: No solid masses. No significant calcifications. No hydronephrosis or hyd roureter. LEFT KIDNEY AND URETER: No solid masses. No significant calcifications. No hydronephrosis or hydr oureter. AORTA AND VESSELS: No aneurysm. No dissection. Renal arteries, SMA, celiac without stenosis. RETROPERITONEUM: Hematoma as above. No adenopathy. BOWEL AND PERITONEAL CAVITY: No masses or inflammatory changes. No free fluid or peritoneal masses. APPENDIX: Not well seen PELVIS: Left lower quadrant hematoma unchanged. No free pelvic fluid. Bladder, rectum unremarkable BONES: No significant or acute findings. OTHER: No other significant finding. IMPRESSION: Stable left lower quadrant abdominal wall hematoma TECHNICAL DOCUMENTATION: JOB ID: [id number] Quality ID # [id number]: Final reports with documentation of one or more dose reduction techniques (e.g., Au tomated exposure control, adjustment of the mA and/or kV according to patient size, use of iterative reconstruction technique) 2010 [employer]- All Rights Reserved Reading location - IP/workstation name: [email or web address]
[2017-06-25] MEDS: TRAMADOL HCL 50 MG TABLET PO PRN (21:53)
[2017-06-25] MEDS: ACETAMINOPHEN 325 MG TABLET PO PRN (23:49)
[2017-06-26] MEDS: LEVALBUTEROL HCL NEB 1.25 MG/3 ML AMPUL NEB SCH ×6 (00:13→20:07)
[2017-06-26] MEDS: NICOTINE 7 MG/24 HR PATCH.TD24 TD PRN (00:49)
--- NOTE | 2017-06-26 02:32 | PDOC PROGRESS REPORT ---
Subjective Progress Note for:: 06/25/17 Subjective:: Patient relates that the pain in the right shoulder is better with muscle relaxer. Nurse reported low blood pressure over night. Nutrition Services Worker reported the same and having to decrease muscle relaxer Review of system All organ systems evaluated and negative except as in subjective All significant laboratories and diagnostics have been reviewed Reason For Visit: ABDOMINAL HEMATOMA ON COUMADIN, PNEUMONIA Physical Exam Vital Signs: Temp Pulse Resp BP Pulse Ox 98.7 F 81 16 106/48 L 92 06/25/17 03:37 06/25/17 05:12 06/25/17 05:12 06/25/17 03:37 06/25/17 05:12 Intake & Output 06/23/17 06/24/17 06/25/17 06:59 06:59 06:59 Intake Total 3023 1924 903 Output Total 900 800 525 Balance 2123 1124 378 Weight 69.2 kg 75.3 kg General appearance: PRESENT: cooperative, well-developed, well-nourished Head exam: PRESENT: normocephalic Eye exam: PRESENT: conjunctiva pink Mouth exam: PRESENT: moist Neck exam: PRESENT: full ROM. ABSENT: JVD, tenderness Respiratory exam: PRESENT: clear to auscultation leah Cardiovascular exam: PRESENT: irregular rhythm, systolic murmur. ABSENT: diastolic murmur Vascular exam: PRESENT: normal capillary refill GI/Abdominal exam: PRESENT: normal bowel sounds, soft, tenderness Gentrourinary exam: PRESENT: scrotal swelling Extremities exam: PRESENT: full ROM, +1 edema Musculoskeletal exam: PRESENT: ambulatory Neurological exam: PRESENT: alert, awake, oriented to person, oriented to place , oriented to time, oriented to situation, CN II-XII grossly intact Psychiatric exam: PRESENT: appropriate affect, normal mood Skin exam: PRESENT: normal color Results Laboratory Results: 06/24/17 05:32 06/23/17 06:03 06/24/17 05:32 WBC 19.7 H RBC 2.89 L Hgb 9.4 L Hct 27.4 L MCV 95 MCH 32.5 MCHC 34.3 RDW 16.7 H Plt Count 237 Seg Neutrophils % 81.7 H Lymphocytes % 5.3 L Monocytes % 10.8 Eosinophils % 1.3 Basophils % 0.9 Absolute Neutrophils 16.1 H Absolute Lymphocytes 1.0 Absolute Monocytes 2.1 H Absolute Eosinophils 0.3 Absolute Basophils 0.2 Impressions: Chest CT 06/19/17 11:46 IMPRESSION: 1. COPD. Right lower lobe pneumonia. 2. 2 cm nodule left upper lobe suspicious for carcinoma. Abdomen/Pelvis CT 06/21/17 00:00 IMPRESSION: 1. An 8.6 cm left paracentral pelvic mass again noted involved in morphology suggesting a hemorrhagic/hematoma component. Differential diagnosis includes underlying neoplasm. 2. Moderate right lower lobar pneumonia. Assessment & Plan - Diagnosis (1) Atrial fibrillation Qualifiers: Atrial fibrillation type: unspecified Qualified Code(s): I48.91 - Unspecified atrial fibrillation Is this a current diagnosis for this admission?: No Plan: Stable (2) Hematoma Is this a current diagnosis for this admission?: Yes Plan: Continue with pain management.. Repeat CT of abdome/pelvis since a bit dizzy. Scrotal binder (3) Rib fractures Qualifiers: Rib fracture type: multiple ribs Laterality: right Is this a current diagnosis for this admission?: Yes Plan: Pain management. Discontinue muscle relaxer. Order incentive spirometer (4) Leukocytosis Qualifiers: Leukocytosis type: unspecified Qualified Code(s): D72.829 - Elevated white blood cell count, unspecified Is this a current diagnosis for this admission?: Yes Plan: Likely due to hematoma and atelectasis - Time Time Spent with patient: 15-24 minutes Medications reviewed and adjusted accordingly: Yes Anticipated discharge: Home with Homehealth Within: within 24 hours - Inpatient Certification Based on my medical assessment, after consideration of the patient's comorbidities, presenting symptoms, or acuity I expect that the services needed warrant INPATIENT care.: Yes I certify that my determination is in accordance with my understanding of Medicare's requirements for reasonable and necessary INPATIENT services [42 CFR 412.3e].: Yes Medical Necessity: Need Close Monitoring Due to Risk of Patient Decompensation, Need For Continuous Telemetry Monitoring
[2017-06-26] MEDS: TRAMADOL HCL 50 MG TABLET PO PRN (04:42)
[2017-06-26 06:18] LABS: HEMATOCRIT 26.9 % (37.9-51.0); HEMOGLOBIN 9.3 g/dL (13.5-17.0); MEAN CORPUSCULAR HEMOGLOBIN 32.7 pg (27.0-33.4); MEAN CORPUSCULAR HGB CONC 34.4 g/dL (32.0-36.0); MEAN CORPUSCULAR VOLUME 95 fl (80-97); PLATELET COUNT 244 10^3/uL (150-450); RED BLOOD COUNT 2.83 10^6/uL (4.35-5.55); RED CELL DISTRIBUTION WIDTH 17.1 % (11.5-14.0); WHITE BLOOD COUNT 17.7 10^3/uL (4.0-10.5)
[2017-06-26 06:42] LABS: ABSOLUTE LYMPHOCYTES# (MANUAL) 1.1 10^3/uL (0.5-4.7); ABSOLUTE MONOCYTES # (MANUAL) 1.2 10^3/uL (0.1-1.4); ABSOLUTE NEUTROPHILS# (MANUAL) 15.2 10^3/uL (1.7-8.2); BAND NEUTROPHILS % (MANUAL) 3 % (3-5); BASOPHILS % (MANUAL) 0 % (0-2); EOSINOPHILS % (MANUAL) 1 % (0-6); LYMPHOCYTES % (MANUAL) 6 % (13-45); MONOCYTES % (MANUAL) 7 % (3-13); NUCLEATED RED BLOOD CELLS 1 /100 WBC (0); SEGMENTED NEUTROPHILS % (MAN) 83 % (42-78); TOTAL CELLS COUNTED 100
[2017-06-26 06:43] LABS: PLATELET COMMENT ADEQUATE
[2017-06-26 06:44] LABS: ANISOCYTOSIS 1+; POLYCHROMASIA 1+
[2017-06-26] MEDS: DIGOXIN 0.25 MG TABLET PO SCH (09:39)
[2017-06-26] MEDS: GABAPENTIN 300 MG CAPSULE PO SCH ×2 (09:39→22:18)
[2017-06-26] MEDS ORDERED: TIZANIDINE HCL 4 MG TABLET PO ONE (11:00)
[2017-06-26] MEDS ORDERED: CEFUROXIME 500 MG TABLET PO ONE (11:00)
--- NOTE | 2017-06-26 17:13 | PDOC PROGRESS REPORT ---
Subjective Progress Note for:: 06/26/17 Subjective:: Patient complains of pain in the right shoulder after the muscle relaxer was discontinued. He states that the pain in that right shoulder is worse than his spinal stenosis Review of system All organ systems evaluated and negative except as in subjective All significant laboratories and diagnostics have been reviewed Reason For Visit: ABDOMINAL HEMATOMA ON COUMADIN, PNEUMONIA Physical Exam Vital Signs: Temp Pulse Resp BP Pulse Ox 98.3 F 76 22 H 141/55 H 97 06/26/17 08:10 06/26/17 08:10 06/26/17 08:10 06/26/17 08:10 06/26/17 08:10 Intake & Output 06/25/17 06/26/17 06/27/17 06:59 06:59 06:59 Intake Total 1143 817 Output Total 750 1100 Balance 393 -283 Weight 72.6 kg 75.4 kg General appearance: PRESENT: mild distress, thin Head exam: PRESENT: atraumatic, normocephalic Eye exam: PRESENT: conjunctiva pink, EOMI, PERRLA Ear exam: PRESENT: normal external ear exam Mouth exam: PRESENT: neck supple Neck exam: PRESENT: full ROM. ABSENT: JVD, lymphadenopathy, tenderness Respiratory exam: PRESENT: clear to auscultation leah Cardiovascular exam: PRESENT: irregular rhythm. ABSENT: diastolic murmur, systolic murmur Vascular exam: PRESENT: normal capillary refill GI/Abdominal exam: PRESENT: guarding, normal bowel sounds, tenderness - + Extremities exam: PRESENT: full ROM, +1 edema Musculoskeletal exam: PRESENT: ambulatory Neurological exam: PRESENT: alert, awake, oriented to person, oriented to place , oriented to time, oriented to situation, CN II-XII grossly intact Psychiatric exam: PRESENT: anxious Skin exam: PRESENT: normal color Results Laboratory Results: 06/26/17 05:37 06/23/17 06:03 06/26/17 05:37 WBC 17.7 H RBC 2.83 L Hgb 9.3 L Hct 26.9 L MCV 95 MCH 32.7 MCHC 34.4 RDW 17.1 H Plt Count 244 Seg Neutrophils % Not Reportable Lymphocytes % Not Reportable Monocytes % Not Reportable Eosinophils % Not Reportable Basophils % Not Reportable Absolute Neutrophils Not Reportable Absolute Lymphocytes Not Reportable Absolute Monocytes Not Reportable Absolute Eosinophils Not Reportable Absolute Basophils Not Reportable Impressions: Chest CT 06/19/17 11:46 IMPRESSION: 1. COPD. Right lower lobe pneumonia. 2. 2 cm nodule left upper lobe suspicious for carcinoma. Abdomen/Pelvis CT 06/25/17 00:00 IMPRESSION: Stable left lower quadrant abdominal wall hematoma Assessment & Plan - Diagnosis (1) Atrial fibrillation Qualifiers: Atrial fibrillation type: unspecified Qualified Code(s): I48.91 - Unspecified atrial fibrillation Is this a current diagnosis for this admission?: No Plan: Stable (2) Hematoma Is this a current diagnosis for this admission?: Yes Plan: Continue with pain management. No further worsening of hematoma. Continue pain management. Continue scrotal binder (3) Rib fractures Qualifiers: Rib fracture type: multiple ribs Laterality: right Is this a current diagnosis for this admission?: Yes Plan: Pain management. Will decrease Zanaflex and discontinue Levaquin since may interfere with metabolism of muscle relaxer (4) Leukocytosis Qualifiers: Leukocytosis type: unspecified Qualified Code(s): D72.829 - Elevated white blood cell count, unspecified Is this a current diagnosis for this admission?: Yes Plan: Likely due to hematoma and atelectasis. Patient encouraged as to use incentive spirometer (5) Lung nodule Is this a current diagnosis for this admission?: Yes Plan: 2 cm left upper lung nodule suspicious of carcinoma - Time Time Spent with patient: 15-24 minutes Medications reviewed and adjusted accordingly: Yes Anticipated discharge: Acute Rehab Within: when bed available - Inpatient Certification Based on my medical assessment, after consideration of the patient's comorbidities, presenting symptoms, or acuity I expect that the services needed warrant INPATIENT care.: Yes I certify that my determination is in accordance with my understanding of Medicare's requirements for reasonable and necessary INPATIENT services [42 CFR 412.3e].: Yes Medical Necessity: Need Close Monitoring Due to Risk of Patient Decompensation, Need for Pain Control
[2017-06-26] MEDS ORDERED: TIZANIDINE HCL 4 MG TABLET PO SCH (18:00)
[2017-06-26] MEDS: CEFUROXIME 500 MG TABLET PO SCH (18:30)
[2017-06-26] MEDS: TIZANIDINE HCL 4 MG TABLET PO SCH (22:18)
[2017-06-27] MEDS: LEVALBUTEROL HCL NEB 1.25 MG/3 ML AMPUL NEB SCH ×6 (00:23→20:14)
[2017-06-27 04:57] LABS: ABSOLUTE BASOPHILS # (AUTO) 0.1 10^3/uL (0.0-0.2); ABSOLUTE EOSINOPHILS # (AUTO) 0.2 10^3/uL (0.0-0.6); ABSOLUTE LYMPHOCYTES (AUTO) 1.2 10^3/uL (0.5-4.7); ABSOLUTE MONOCYTES (AUTO) 2.3 10^3/uL (0.1-1.4); ABSOLUTE NEUT (AUTO) 14.8 10^3/uL (1.7-8.2); BASOPHILS % (AUTO) 0.4 % (0-2); EOSINOPHILS % (AUTO) 1.3 % (0-6); HEMATOCRIT 28.4 % (37.9-51.0); HEMOGLOBIN 9.7 g/dL (13.5-17.0); LYMPHOCYTES % (AUTO) 6.3 % (13-45); MEAN CORPUSCULAR HEMOGLOBIN 32.3 pg (27.0-33.4); MEAN CORPUSCULAR HGB CONC 34.3 g/dL (32.0-36.0); MEAN CORPUSCULAR VOLUME 94 fl (80-97); MONOCYTES % (AUTO) 12.5 % (3-13); PLATELET COUNT 294 10^3/uL (150-450); RED BLOOD COUNT 3.01 10^6/uL (4.35-5.55); RED CELL DISTRIBUTION WIDTH 17.2 % (11.5-14.0); SEGMENTED NEUTROPHILS % (AUTO) 79.5 % (42-78); TOTAL CELLS COUNTED % (AUTO) 100 %; WHITE BLOOD COUNT 18.6 10^3/uL (4.0-10.5)
[2017-06-27 05:16] LABS: BLOOD UREA NITROGEN 16 mg/dL (7-20); CALCIUM 8.2 mg/dL (8.4-10.2); GLUCOSE 103 mg/dL (75-110)
[2017-06-27 05:25] LABS: ANION GAP 6 (5-19); CARBON DIOXIDE 31 mmol/L (22-30); CHLORIDE 96 mmol/L (98-107); SODIUM 133.2 mmol/L (137-145)
[2017-06-27] MEDS: TIZANIDINE HCL 4 MG TABLET PO SCH ×2 (09:12→21:35)
[2017-06-27] MEDS: CEFUROXIME 500 MG TABLET PO SCH ×2 (09:12→17:15)
[2017-06-27] MEDS: DIGOXIN 0.25 MG TABLET PO SCH (09:12)
[2017-06-27] MEDS: GABAPENTIN 300 MG CAPSULE PO SCH ×2 (09:12→21:34)
[2017-06-27] MEDS ORDERED: OXYCODONE HCL IR 5 MG TABLET PO ONE (11:00)
[2017-06-27] MEDS: OXYCODONE HCL IR 5 MG TABLET PO SCH ×2 (14:05→21:33)
--- NOTE | 2017-06-27 18:07 | PDOC CONSULTATION ---
Consultation Consult Date: 06/27/17 Consult reason:: Hematology Oncology consultation was requested for patient with large hematoma and pulmonary nodule. History of Present Illness Admission Date/PCP: 06/19/17 14:30 YUMIKO ZAMBRANO PA-C History of Present Illness: Mr. Caicedo is a 76 yo Male who describes significant coughing with yellow sputum production and fatigue approximately one week ago. He was diagnosed with acute bronchitis and placed on augmentin and prednisone. 4 days prior to admission, he began experiencing lower quadrant abdominal pain after a coughing spell. He thought this was an abdominal hernia. Pain intensified over the next several days. He also saw a bruise that expanded across his abdomen and presented to the hospital. He was found to have a large psoas bleed. He has been on coumadin for heart valve and A-fib. This was held. He has required blood transfusions and believes that it initially improved, but is now worsening again. Incidental pulmonary nodule was found on CT lungs. Today, he states that he is still having pain with coughing. He is also having pain in his shoulder and ribs - he believes from a fall a few days ago. His swelling has improved. His bronchitis turned into pneumonia. The muscle relaxer that he was started on caused hallucinations and he is not happy taking any narcotics as he had a very hard time weaning off these in the past. Past Medical History Cardiac Medical History: Reports: Atrial Fibrillation, Peripheral Vascular Disease, Heart Murmur, Other - aortic valve replacement Pulmonary Medical History: Reports: Chronic Obstructive Pulmonary Disease (COPD) Neurological Medical History: Reports: Other - Spinal stenosis Renal/ Medical History: Reports: Other - BPH Malignancy Medical History: Reports: Other - Prostate cancer treated with XRT 2009. Musculoskeltal Medical History: Reports: Arthritis - back pains and had needle injections Past Surgical History Past Surgical History: Reports: Orthopedic Surgery - bilateral knee meniscus repair, Pacemaker, Valve Replacement Social History Information Source: Patient Lives with: Friend Smoking Status: Current Every Day Smoker Cigarettes Packs Per Day: 7 Number of Years Smokin Last Time Smoked: 06/19/17 Frequency of Alcohol Use: Occasional Hx Recreational Drug Use: No Drugs: None Hx Prescription Drug Abuse: No Past Social History Note: He is with 2 biological children and 2 step children. He is a retired [employer]. - Advance Directive Resuscitation Status: Full Code Family History Parental Family History Reviewed: Yes - Father age 90 with DM. Mother age 89 with heart valve, alzheimer Children Family History Reviewed: Unknown Sibling(s) Family History Reviewed.: Yes - Brothers with DM Medication/Allergy Home Medications: Amoxicillin/Potassium Clav [Amox-Clav 875-125 mg Tablet] 1 each PO BID 06/19/17 Digoxin [Lanoxin] 250 mcg PO DAILY 06/19/17 Gabapentin 600 mg PO BID 06/19/17 Guaifenesin [Mucinex] 600 mg PO Q12HP PRN 06/19/17 Melatonin 5 mg PO HSP PRN 06/19/17 Prednisone 20 mg PO DAILY 06/19/17 Sennosides [Senna Lax] 8.6 mg PO DAILYP PRN 06/19/17 Warfarin Sodium 5 mg PO DAILY 06/19/17 Allergies/Adverse Reactions: No Known Drug Allergies Allergy (Verified 06/19/17 10:08) bees Allergy (Uncoded 06/19/17 10:08) Review of Systems Constitutional: ABSENT: fever(s), headache(s) Eyes: ABSENT: visual disturbances Ears: ABSENT: hearing changes Nose, Mouth, and Throat: ABSENT: sore throat Cardiovascular: ABSENT: chest pain, palpitations Respiratory: PRESENT: cough, other - pleuritic chest pain Gastrointestinal: PRESENT: as per HPI Genitourinary: PRESENT: as per HPI Musculoskeletal: PRESENT: other - Pain in right shoulder blade. ABSENT: muscle weakness Neurological: ABSENT: memory loss, weakness Psychiatric: PRESENT: hallucinations - Due to recent medication. Hematologic/Lymphatic: PRESENT: easy bruising Physical Exam Vital Signs: Temp Pulse Resp BP Pulse Ox 98.2 F 80 26 H 123/58 L 92 06/27/17 16:13 06/27/17 16:13 06/27/17 16:13 06/27/17 16:13 06/27/17 16:13 Intake & Output 06/26/17 06/27/17 06/28/17 06:59 06:59 06:59 Intake Total 817 1216 75 Output Total 1100 925 125 Balance -283 291 -50 Weight 75.4 kg 72.1 kg General appearance: PRESENT: no acute distress, well-developed, well-nourished Exam: 77 year old male. Head exam: PRESENT: atraumatic Eye exam: PRESENT: PERRLA Ear exam: PRESENT: normal external ear exam Mouth exam: PRESENT: tongue midline Neck exam: ABSENT: lymphadenopathy, tenderness Respiratory exam: PRESENT: clear to auscultation leah, unlabored Cardiovascular exam: PRESENT: RRR. ABSENT: systolic murmur Pulses: PRESENT: normal dorsalis pedis pul GI/Abdominal exam: PRESENT: soft. ABSENT: tenderness Gentrourinary exam: PRESENT: scrotal swelling, other - Erythema in groin. Extremities exam: PRESENT: +1 edema Neurological exam: PRESENT: alert, awake, oriented to person, oriented to place , oriented to time, oriented to situation Skin exam: PRESENT: other - Echymoses at umbilicus and bilateral flanks. Results Laboratory Results: 06/27/17 04:34 06/27/17 04:34 06/27/17 06/27/17 04:34 04:34 WBC 18.6 H RBC 3.01 L Hgb 9.7 L Hct 28.4 L MCV 94 MCH 32.3 MCHC 34.3 RDW 17.2 H Plt Count 294 Seg Neutrophils % 79.5 H Lymphocytes % 6.3 L Monocytes % 12.5 Eosinophils % 1.3 Basophils % 0.4 Absolute Neutrophils 14.8 H Absolute Lymphocytes 1.2 Absolute Monocytes 2.3 H Absolute Eosinophils 0.2 Absolute Basophils 0.1 Sodium 133.2 L Potassium 5.0 Chloride 96 L Carbon Dioxide 31 H Anion Gap 6 BUN 16 Creatinine 1.05 Est GFR ( Amer) > 60 Est GFR (Non-Af Amer) > 60 Glucose 103 Calcium 8.2 L 06/27/17 04:34 NT-Pro-B Natriuret Pep 72859 H Impressions: Chest CT 06/19/17 11:46 IMPRESSION: 1. COPD. Right lower lobe pneumonia. 2. 2 cm nodule left upper lobe suspicious for carcinoma. Abdomen/Pelvis CT 06/25/17 00:00 IMPRESSION: Stable left lower quadrant abdominal wall hematoma Assessment & Plan - Diagnosis (1) Hematoma Is this a current diagnosis for this admission?: Yes Plan: Large area of bleeding, underlying cause still unclear. He was on coumadin at the time. (2) Coagulopathy Is this a current diagnosis for this admission?: Yes Plan: PT and PTT both elevated. Unsure why PTT was elevated. I will repeat PT and PTT today and order mixing study to check for inhibitor. (3) Anemia Qualifiers: Other causes of anemia: acute posthemorrhagic Is this a current diagnosis for this admission?: Yes Plan: Continue to monitor and transfuse as needed. (4) Lung nodule Is this a current diagnosis for this admission?: Yes Plan: I have explained that this may be inflammatory due to recent lung infection. Due to active bleeding issues, I do not believe it is yoo to obtain a biopsy at this time. I would repeat CT in 4-6 weeks and re-evaluate at that time. I am happy to follow him for this after discharge. (5) Atrial fibrillation Qualifiers: Atrial fibrillation type: unspecified Qualified Code(s): I48.91 - Unspecified atrial fibrillation Is this a current diagnosis for this admission?: No Plan: I agree with holding all anticoagulation currently, until bleeding has resolved. Further use of blood thinners will need to be discussed based on risk of further bleeding. Plan was discussed with Dr. Rios. I will continue to follow.
--- NOTE | 2017-06-27 18:33 | PDOC PROGRESS REPORT ---
Subjective Subjective:: Patient come complains of pain in his stomach however the pain in his right shoulder is better with the muscle relaxer Review of system All organ systems evaluated and negative except as in subjective All significant laboratories and diagnostics have been reviewed Reason For Visit: ABDOMINAL HEMATOMA ON COUMADIN, PNEUMONIA Physical Exam Vital Signs: Temp Pulse Resp BP Pulse Ox 98.6 F 81 18 142/54 H 94 06/27/17 08:18 06/27/17 08:25 06/27/17 08:25 06/27/17 08:18 06/27/17 08:25 Intake & Output 06/26/17 06/27/17 06/28/17 06:59 06:59 06:59 Intake Total 817 1216 Output Total 1100 925 Balance -283 291 Weight 75.4 kg 72.1 kg General appearance: PRESENT: no acute distress, cooperative, well-developed, well-nourished Head exam: PRESENT: atraumatic, normocephalic Eye exam: PRESENT: conjunctiva pink, EOMI, PERRLA Ear exam: PRESENT: normal external ear exam Mouth exam: PRESENT: moist Neck exam: PRESENT: full ROM. ABSENT: JVD, lymphadenopathy, tenderness Respiratory exam: PRESENT: clear to auscultation leah Cardiovascular exam: PRESENT: irregular rhythm. ABSENT: diastolic murmur, systolic murmur Vascular exam: PRESENT: normal capillary refill GI/Abdominal exam: PRESENT: normal bowel sounds, soft, tenderness Extremities exam: PRESENT: full ROM, +1 edema Musculoskeletal exam: PRESENT: ambulatory Neurological exam: PRESENT: alert, awake, oriented to person, oriented to place , oriented to time, oriented to situation, CN II-XII grossly intact Psychiatric exam: PRESENT: appropriate affect, normal mood Skin exam: PRESENT: other - Hematoma around the navel area extending to scrotum noted Results Laboratory Results: 06/27/17 04:34 06/27/17 04:34 06/27/17 06/27/17 04:34 04:34 WBC 18.6 H RBC 3.01 L Hgb 9.7 L Hct 28.4 L MCV 94 MCH 32.3 MCHC 34.3 RDW 17.2 H Plt Count 294 Seg Neutrophils % 79.5 H Lymphocytes % 6.3 L Monocytes % 12.5 Eosinophils % 1.3 Basophils % 0.4 Absolute Neutrophils 14.8 H Absolute Lymphocytes 1.2 Absolute Monocytes 2.3 H Absolute Eosinophils 0.2 Absolute Basophils 0.1 Sodium 133.2 L Potassium 5.0 Chloride 96 L Carbon Dioxide 31 H Anion Gap 6 BUN 16 Creatinine 1.05 Est GFR ( Amer) > 60 Est GFR (Non-Af Amer) > 60 Glucose 103 Calcium 8.2 L Impressions: Chest CT 06/19/17 11:46 IMPRESSION: 1. COPD. Right lower lobe pneumonia. 2. 2 cm nodule left upper lobe suspicious for carcinoma. Abdomen/Pelvis CT 06/25/17 00:00 IMPRESSION: Stable left lower quadrant abdominal wall hematoma Assessment & Plan - Diagnosis (1) Atrial fibrillation Qualifiers: Atrial fibrillation type: unspecified Qualified Code(s): I48.91 - Unspecified atrial fibrillation Is this a current diagnosis for this admission?: No Plan: Stable (2) Hematoma Is this a current diagnosis for this admission?: Yes Plan: No further worsening of hematoma. Continue scrotal binder. To add scheduled OxyCodone (3) Rib fractures Qualifiers: Rib fracture type: multiple ribs Laterality: right Is this a current diagnosis for this admission?: Yes Plan: Pain management and continue zanaflex (4) Leukocytosis Qualifiers: Leukocytosis type: unspecified Qualified Code(s): D72.829 - Elevated white blood cell count, unspecified Is this a current diagnosis for this admission?: Yes Plan: Likely due to hematoma and atelectasis. Patient encouraged as to use incentive spirometer (5) Lung nodule Is this a current diagnosis for this admission?: Yes Plan: 2 cm left upper lung nodule suspicious of carcinoma. Patient notified. Accordingly he was unaware. Consult Dr. Callahan - Time Time Spent with patient: 15-24 minutes Medications reviewed and adjusted accordingly: Yes Anticipated discharge: Acute Rehab Within: when bed available - Inpatient Certification Based on my medical assessment, after consideration of the patient's comorbidities, presenting symptoms, or acuity I expect that the services needed warrant INPATIENT care.: Yes I certify that my determination is in accordance with my understanding of Medicare's requirements for reasonable and necessary INPATIENT services [42 CFR 412.3e].: Yes Medical Necessity: Need Close Monitoring Due to Risk of Patient Decompensation, Need for Pain Control
[2017-06-27 19:34] LABS: INTERNATIONAL RATION (INR) 1.14; PROTHROMBIN TIME 15.2 SEC (11.4-15.4)
[2017-06-27 19:53] LABS: PARTIAL THROMBOPLASTIN TIME 33.4 SEC (23.5-35.8)
[2017-06-28] MEDS: LEVALBUTEROL HCL NEB 1.25 MG/3 ML AMPUL NEB SCH ×4 (00:05→12:06)
[2017-06-28] MEDS: NICOTINE 7 MG/24 HR PATCH.TD24 TD PRN (00:20)
[2017-06-28] MEDS: OXYCODONE HCL IR 5 MG TABLET PO SCH ×3 (05:27→22:18)
--- NOTE | 2017-06-28 08:28 | PDOC PROGRESS REPORT ---
Subjective Progress Note for:: 06/28/17 Subjective:: Patient states the blood in his flank continues. He is unsure if it is getting worse or not. He is still not happy about the choice of pain medications. Reason For Visit: ABDOMINAL HEMATOMA ON COUMADIN, PNEUMONIA Physical Exam Vital Signs: Temp Pulse Resp BP Pulse Ox 98.6 F 80 18 148/45 H 93 06/28/17 03:11 06/28/17 08:20 06/28/17 08:20 06/28/17 03:11 06/28/17 08:20 Intake & Output 06/27/17 06/28/17 06/29/17 06:59 06:59 06:59 Intake Total 1216 1435 Output Total 925 875 Balance 291 560 Weight 72.1 kg 75.2 kg General appearance: PRESENT: no acute distress Respiratory exam: PRESENT: unlabored Neurological exam: PRESENT: alert, awake, oriented to person, oriented to place , oriented to situation Psychiatric exam: PRESENT: appropriate affect Results Laboratory Results: 06/27/17 04:34 06/27/17 04:34 06/27/17 04:34 NT-Pro-B Natriuret Pep 53028 H Impressions: Chest CT 06/19/17 11:46 IMPRESSION: 1. COPD. Right lower lobe pneumonia. 2. 2 cm nodule left upper lobe suspicious for carcinoma. Abdomen/Pelvis CT 06/25/17 00:00 IMPRESSION: Stable left lower quadrant abdominal wall hematoma Assessment & Plan - Diagnosis (1) Hematoma Is this a current diagnosis for this admission?: Yes Plan: Continues. We discussed the fact that it will take several weeks for this to resolve. He understands and is planning discharge to Rehab for about 2 weeks. (2) Coagulopathy Is this a current diagnosis for this admission?: Yes Plan: Now resolved. Although patient was on coumadin, that should not have caused the elevation in PTT. Both PT and PTT are now back to normal. Further anticoagulation to be determined. (3) Anemia Qualifiers: Other causes of anemia: acute posthemorrhagic Is this a current diagnosis for this admission?: Yes Plan: Currently stable. No evidence of continued drop in HGB. (4) Lung nodule Is this a current diagnosis for this admission?: Yes Plan: I will follow this as outpatient and plan to repeat scans in 4-6 weeks. (5) Atrial fibrillation Qualifiers: Atrial fibrillation type: unspecified Qualified Code(s): I48.91 - Unspecified atrial fibrillation Is this a current diagnosis for this admission?: No - Plan Summary Plan Summary: I will be available over the weekend by phone. Please call with any questions or concerns. I encouraged him to use the muscle relaxers and the oxycodone PRN for pain. He states that he will try.
[2017-06-28] MEDS: GABAPENTIN 300 MG CAPSULE PO SCH ×2 (10:35→22:17)
[2017-06-28] MEDS: DIGOXIN 0.25 MG TABLET PO SCH (10:36)
[2017-06-28] MEDS: CEFUROXIME 500 MG TABLET PO SCH ×2 (10:36→17:20)
[2017-06-28] MEDS: TIZANIDINE HCL 4 MG TABLET PO SCH ×2 (10:37→22:17)
[2017-06-28] MEDS ORDERED: ALBUTEROL SULFATE 0.083% NEB 2.5 MG/3 ML AMPUL NEB PRN (13:13)
[2017-06-28] MEDS: IPRATROPIUM/ALBUTEROL 0.5-2.5 MG/3 ML AMPUL NEB SCH ×2 (13:34→19:53)
--- NOTE | 2017-06-28 13:47 | PDOC PROGRESS REPORT ---
Subjective Progress Note for:: 06/28/17 Subjective:: Patient relates and was not able to sleep well last night since people come in and out of the room. The shoulder pain is better but is having pain to his right side of the stomach. He has decided after talking with Dr. Callahan that he will take the oxycodone Review of system All organ systems evaluated and negative except as in subjective All significant laboratories and diagnostics have been reviewed Reason For Visit: ABDOMINAL HEMATOMA ON COUMADIN, PNEUMONIA Physical Exam Vital Signs: Temp Pulse Resp BP Pulse Ox 99.2 F 75 26 H 95/48 L 93 06/28/17 12:05 06/28/17 12:05 06/28/17 12:05 06/28/17 12:05 06/28/17 12:05 Intake & Output 06/27/17 06/28/17 06/29/17 06:59 06:59 06:59 Intake Total 1216 1435 115 Output Total 925 875 Balance 291 560 115 Weight 72.1 kg 75.2 kg General appearance: PRESENT: cooperative, mild distress, thin Head exam: PRESENT: atraumatic, normocephalic Eye exam: PRESENT: conjunctiva pink, EOMI, PERRLA Ear exam: PRESENT: normal external ear exam Mouth exam: PRESENT: moist Neck exam: PRESENT: full ROM. ABSENT: JVD, lymphadenopathy, tenderness Respiratory exam: PRESENT: clear to auscultation leah, decreased breath sounds Cardiovascular exam: PRESENT: irregular rhythm. ABSENT: diastolic murmur, systolic murmur GI/Abdominal exam: PRESENT: normal bowel sounds, soft, tenderness Gentrourinary exam: PRESENT: scrotal swelling Extremities exam: PRESENT: full ROM. ABSENT: pedal edema Musculoskeletal exam: PRESENT: ambulatory Neurological exam: PRESENT: alert, awake, oriented to person, oriented to place , oriented to time, oriented to situation, CN II-XII grossly intact Psychiatric exam: PRESENT: appropriate affect, normal mood Skin exam: PRESENT: petechiae Results Laboratory Results: 06/27/17 04:34 06/27/17 04:34 06/27/17 04:34 NT-Pro-B Natriuret Pep 09931 H Impressions: Chest CT 06/19/17 11:46 IMPRESSION: 1. COPD. Right lower lobe pneumonia. 2. 2 cm nodule left upper lobe suspicious for carcinoma. Abdomen/Pelvis CT 06/25/17 00:00 IMPRESSION: Stable left lower quadrant abdominal wall hematoma Assessment & Plan - Diagnosis (1) Atrial fibrillation Qualifiers: Atrial fibrillation type: unspecified Qualified Code(s): I48.91 - Unspecified atrial fibrillation Is this a current diagnosis for this admission?: No (2) Hematoma Is this a current diagnosis for this admission?: Yes Plan: No further worsening of hematoma as per repeat CT of abdome/pelvis. Continue scrotal binder. Continue scheduled OxyCodone (3) Rib fractures Qualifiers: Rib fracture type: multiple ribs Laterality: right Is this a current diagnosis for this admission?: Yes Plan: Pain management and continue zanaflex (4) Leukocytosis Qualifiers: Leukocytosis type: unspecified Qualified Code(s): D72.829 - Elevated white blood cell count, unspecified Is this a current diagnosis for this admission?: Yes Plan: Likely due to hematoma and atelectasis. Patient encouraged as to use incentive spirometer. Discontinue ceftin (5) Lung nodule Is this a current diagnosis for this admission?: Yes Plan: 2 cm left upper lung nodule suspicious of carcinoma. Patient notified. Accordingly he was unaware. Dr Callahan following since other possible coagulation issues (6) HTN (hypertension) Qualifiers: Hypertension type: essential hypertension Qualified Code(s): I10 - Essential (primary) hypertension Is this a current diagnosis for this admission?: Yes Plan: To place on Cardizem XL 180 mg at bedtime and lisinopril (7) CHF (congestive heart failure) Qualifiers: Heart failure chronicity: acute Is this a current diagnosis for this admission?: Yes Plan: Start lasix IV, lisinopril and cardiazem. Order echocardiogram (8) COPD (chronic obstructive pulmonary disease) Qualifiers: Emphysema type: unspecified Is this a current diagnosis for this admission?: Yes Plan: To place on nebulizer treatments (9) Coagulopathy Is this a current diagnosis for this admission?: Yes Plan: Resolved (10) Tobacco abuse Is this a current diagnosis for this admission?: Yes Plan: Continue nicotine patch - Time Time Spent with patient: 15-24 minutes Medications reviewed and adjusted accordingly: Yes Anticipated discharge: Acute Rehab Within: within 72 hours - Inpatient Certification Based on my medical assessment, after consideration of the patient's comorbidities, presenting symptoms, or acuity I expect that the services needed warrant INPATIENT care.: Yes I certify that my determination is in accordance with my understanding of Medicare's requirements for reasonable and necessary INPATIENT services [42 CFR 412.3e].: Yes Medical Necessity: Need Close Monitoring Due to Risk of Patient Decompensation, Need For Continuous Telemetry Monitoring, Need for Nebulizer Therapy and Monitoring of Response
[2017-06-28] MEDS ORDERED: LISINOPRIL 10 MG TABLET PO ONE (14:00)
[2017-06-28] MEDS ORDERED: FUROSEMIDE INJ/PF 40 MG/4 ML SDV IV ONE (14:00)
--- NOTE | 2017-06-28 19:05 | XCELERA REPORT ---
[address] [address] Transthoracic Echocardiogram Report Name: NATHANAEL LYONS Age: 77 yrs Gender: Male : 1940 Patient Status: Inpatient Patient Location: [address] [place] [address] Study Date: 06/28/2017 02:25 PM Height: 65 in Weight: 165 lb BSA: 1.8 m2 Procedure: A complete two-dimensional transthoracic echocardiogram was performed (2D, M-mode, spectral and color flow Doppler). The study was technically difficult with many images being suboptimal in quality. Reason For Study: chf Ordering Physician: FRANKY GUARDADO Performed By: Ysabel Avila Interpretation Summary The study was technically difficult with many images being suboptimal in quality. The left ventricular ejection fraction is normal. There is moderate concentric left ventricular hypertrophy. The left ventricle is grossly normal size. Doppler measurements suggest pseudonormalized left ventricular relaxation, which is associated with grade II/IV or mild to moderate diastolic dysfunction Wall motion cannot be accurately commented on, but no definite regional wall motion abnormalities noted. The right ventricle is mildly dilated. The right ventricular systolic function is normal. The right atrium is mildly dilated. The left atrium is moderately dilated. There is no mitral valve stenosis. There is a trace amount of mitral regurgitation There is mild to moderate aortic stenosis Can not r/o worse Aorticl stenosis. There is a trace amount of aortic regurgitation There is a mild to moderate amount of tricuspid regurgitation There is moderate pulmonary hypertension by echo Right ventricular systolic pressure is estimated to be elevated at 50- 60mmHg. The aortic root is not well visualized. The inferior vena cava appeared normal and decreased < 50% with respiration (RAP 10-15 mmHg) There is no pericardial effusion. MMode/2D Measurements & Calculations RVDd: 3.9 cm LVIDd: 4.5 cm FS: 28.6 % Ao root diam: 3.0 cm IVSd: 1.5 cm LVIDs: 3.2 cm EDV(Teich): 91.0 ml LVPWd: 1.4 cm ESV(Teich): 40.7 ml Ao root area: 7.0 cm2 EF(Teich): 55.2 % LVOT diam: 2.0 cm LVOT area: 3.3 cm2 Doppler Measurements & Calculations MV E max taina: MV dec slope: Ao V2 max: LV V1 max P.1 cm/sec 677.6 cm/sec2 221.2 cm/sec 7.6 mmHg MV A max taina: MV dec time: Ao max PG: LV V1 max: 0.41 cm/sec 0.20 sec 19.6 mmHg 137.4 cm/sec MV E/A: 335.7 PRITESH(V,D): 2.0 cm2 PA V2 max: TR max taina: 77.7 cm/sec 366.9 cm/sec PA max P.4 mmHgTR max P.9 mmHg Left Ventricle The left ventricle is grossly normal size. There is moderate concentric left ventricular hypertrophy. The left ventricular ejection fraction is normal. Doppler measurements suggest pseudonormalized left ventricular relaxation, which is associated with grade II/IV or mild to moderate diastolic dysfunction. Wall motion cannot be accurately commented on, but no definite regional wall motion abnormalities noted. Right Ventricle The right ventricle is mildly dilated. The right ventricular systolic function is normal. Atria The right atrium is mildly dilated. The left atrium is moderately dilated. Mitral Valve The mitral valve is not well visualized. There is no mitral valve stenosis. There is a trace amount of mitral regurgitation. Aortic Valve The aortic valve is moderately calcified. The aortic valve is not well visualized secondary to technical limitations. There is mild to moderate aortic stenosis. Can not r/o worse Aorticl stenosis. There is a trace amount of aortic regurgitation. Tricuspid Valve The tricuspid valve is not well visualized secondary to technical limitations. There is no tricuspid stenosis. There is a mild to moderate amount of tricuspid regurgitation. There is moderate pulmonary hypertension by echo. Right ventricular systolic pressure is estimated to be elevated at 50-60mmHg. Pulmonic Valve The pulmonic valve is not well visualized. Great Vessels The aortic root is not well visualized. The inferior vena cava appeared normal and decreased < 50% with respiration (RAP 10-15 mmHg). Effusions There is no pericardial effusion. : FRANKY GUARDADO > Liss Smith
[2017-06-28] MEDS ORDERED: DILTIAZEM HCL 180 MG CAPSULE.CR PO SCH (22:00)
[2017-06-28] MEDS: FUROSEMIDE INJ/PF 40 MG/4 ML SDV IV SCH (22:17)
[2017-06-29] MEDS: OXYCODONE HCL IR 5 MG TABLET PO SCH ×3 (05:13→22:22)
[2017-06-29] MEDS: IPRATROPIUM/ALBUTEROL 0.5-2.5 MG/3 ML AMPUL NEB SCH ×3 (08:02→20:08)
[2017-06-29] MEDS: CEFUROXIME 500 MG TABLET PO SCH ×2 (09:50→17:04)
[2017-06-29] MEDS: DIGOXIN 0.25 MG TABLET PO SCH (09:50)
[2017-06-29] MEDS: TIZANIDINE HCL 4 MG TABLET PO SCH ×2 (09:50→22:22)
[2017-06-29] MEDS: FUROSEMIDE INJ/PF 40 MG/4 ML SDV IV SCH (09:51)
[2017-06-29] MEDS: GABAPENTIN 300 MG CAPSULE PO SCH ×2 (09:53→22:22)
[2017-06-29] MEDS ORDERED: LISINOPRIL 10 MG TABLET PO SCH (10:00)
[2017-06-29] MEDS ORDERED: TAMSULOSIN HCL 0.4 MG CAP.SR.24H PO ONE (15:00)
--- NOTE | 2017-06-29 17:35 | PDOC PROGRESS REPORT ---
Subjective Progress Note for:: 06/29/17 Subjective:: Patient relates that his appetite is better. Complains of having some burning on urination for which he was taking Mybertik as outpatient Review of system All organ systems evaluated and negative except as in subjective All significant laboratories and diagnostics have been reviewed Reason For Visit: ABDOMINAL HEMATOMA ON COUMADIN, PNEUMONIA Physical Exam Vital Signs: Temp Pulse Resp BP Pulse Ox 98.6 F 70 24 H 100/44 L 93 06/29/17 03:21 06/29/17 03:21 06/29/17 03:21 06/29/17 03:21 06/29/17 03:21 Intake & Output 06/28/17 06/29/17 06/30/17 06:59 06:59 06:59 Intake Total 1435 668 Output Total 875 2475 Balance 560 -1807 Weight 75.2 kg 68 kg General appearance: PRESENT: cooperative, thin Head exam: PRESENT: atraumatic, normocephalic Eye exam: PRESENT: conjunctiva pink, EOMI, PERRLA Mouth exam: PRESENT: moist Neck exam: PRESENT: full ROM. ABSENT: JVD, lymphadenopathy, tenderness Respiratory exam: PRESENT: clear to auscultation leah Cardiovascular exam: PRESENT: irregular rhythm. ABSENT: diastolic murmur, systolic murmur Vascular exam: PRESENT: normal capillary refill GI/Abdominal exam: PRESENT: normal bowel sounds, soft, tenderness Gentrourinary exam: PRESENT: scrotal swelling - Improved swelling of the scrotum Extremities exam: PRESENT: full ROM. ABSENT: pedal edema Musculoskeletal exam: PRESENT: ambulatory Neurological exam: PRESENT: alert, awake, oriented to person, oriented to place , oriented to time, oriented to situation, CN II-XII grossly intact Psychiatric exam: PRESENT: appropriate affect, normal mood Results Laboratory Results: 06/27/17 04:34 06/27/17 04:34 06/27/17 04:34 NT-Pro-B Natriuret Pep 08651 H Impressions: Chest CT 06/19/17 11:46 IMPRESSION: 1. COPD. Right lower lobe pneumonia. 2. 2 cm nodule left upper lobe suspicious for carcinoma. Abdomen/Pelvis CT 06/25/17 00:00 IMPRESSION: Stable left lower quadrant abdominal wall hematoma Assessment & Plan - Diagnosis (1) Atrial fibrillation Qualifiers: Atrial fibrillation type: unspecified Qualified Code(s): I48.91 - Unspecified atrial fibrillation Is this a current diagnosis for this admission?: No Plan: Stable. Will decrease Cardizem CD to 120 and follow-up if any hypotension (2) Hematoma Is this a current diagnosis for this admission?: Yes Plan: No further worsening of hematoma as per repeat CT of abdome/pelvis. Continue scrotal binder. Continue scheduled OxyCodone (3) Rib fractures Qualifiers: Rib fracture type: multiple ribs Laterality: right Is this a current diagnosis for this admission?: Yes Plan: Pain management and continue zanaflex (4) Leukocytosis Qualifiers: Leukocytosis type: unspecified Qualified Code(s): D72.829 - Elevated white blood cell count, unspecified Is this a current diagnosis for this admission?: Yes Plan: Likely due to hematoma and atelectasis. Patient encouraged as to use incentive spirometer. Follow-up CBC (5) Lung nodule Is this a current diagnosis for this admission?: Yes Plan: 2 cm left upper lung nodule suspicious of carcinoma. Patient notified. Accordingly he was unaware. Dr Callahan following since other possible coagulation issues (6) HTN (hypertension) Qualifiers: Hypertension type: essential hypertension Qualified Code(s): I10 - Essential (primary) hypertension Is this a current diagnosis for this admission?: Yes Plan: To decrease Cardizem dose and discontinue diuretic (7) CHF (congestive heart failure) Qualifiers: Heart failure chronicity: acute Is this a current diagnosis for this admission?: Yes Plan: Appears to be due to diastolic and valvular dysfunction. To discontinue diuresis since major issue is aortic valve. (8) COPD (chronic obstructive pulmonary disease) Qualifiers: Emphysema type: unspecified Is this a current diagnosis for this admission?: Yes Plan: Continue current management (9) Coagulopathy Is this a current diagnosis for this admission?: Yes Plan: Resolved (10) Tobacco abuse Is this a current diagnosis for this admission?: Yes Plan: Continue nicotine patch (11) Pulmonary hypertension Is this a current diagnosis for this admission?: Yes Plan: Likely due to valvular issues. Have to discontinue Lasix due to hypotension - Time Time Spent with patient: 15-24 minutes Medications reviewed and adjusted accordingly: Yes Anticipated discharge: Acute Rehab Within: within 72 hours - Inpatient Certification Based on my medical assessment, after consideration of the patient's comorbidities, presenting symptoms, or acuity I expect that the services needed warrant INPATIENT care.: Yes I certify that my determination is in accordance with my understanding of Medicare's requirements for reasonable and necessary INPATIENT services [42 CFR 412.3e].: Yes Medical Necessity: Need Close Monitoring Due to Risk of Patient Decompensation, Need For Continuous Telemetry Monitoring
[2017-06-29] MEDS ORDERED: MIRTAZAPINE 15 MG TABLET PO ONE (18:15)
[2017-06-29] MEDS ORDERED: DILTIAZEM HCL 180 MG CAPSULE.CR PO SCH (22:00)
[2017-06-29] MEDS ORDERED: FUROSEMIDE INJ/PF 40 MG/4 ML SDV IV SCH (22:00)
[2017-06-29] MEDS: MIRTAZAPINE 15 MG TABLET PO SCH (22:22)
[2017-06-29] MEDS ORDERED: DILTIAZEM HCL 60 MG TABLET PO ONE (22:30)
[2017-06-30 05:38] LABS: ABSOLUTE BASOPHILS # (AUTO) 0.2 10^3/uL (0.0-0.2); ABSOLUTE EOSINOPHILS # (AUTO) 0.4 10^3/uL (0.0-0.6); ABSOLUTE LYMPHOCYTES (AUTO) 1.2 10^3/uL (0.5-4.7); ABSOLUTE MONOCYTES (AUTO) 2.1 10^3/uL (0.1-1.4); ABSOLUTE NEUT (AUTO) 12.5 10^3/uL (1.7-8.2); BASOPHILS % (AUTO) 1.2 % (0-2); EOSINOPHILS % (AUTO) 2.4 % (0-6); HEMATOCRIT 31.2 % (37.9-51.0); HEMOGLOBIN 10.7 g/dL (13.5-17.0); LYMPHOCYTES % (AUTO) 7.1 % (13-45); MEAN CORPUSCULAR HEMOGLOBIN 32.3 pg (27.0-33.4); MEAN CORPUSCULAR HGB CONC 34.1 g/dL (32.0-36.0); MEAN CORPUSCULAR VOLUME 95 fl (80-97); MONOCYTES % (AUTO) 12.6 % (3-13); PLATELET COUNT 302 10^3/uL (150-450); RED CELL DISTRIBUTION WIDTH 17.2 % (11.5-14.0); SEGMENTED NEUTROPHILS % (AUTO) 76.7 % (42-78); TOTAL CELLS COUNTED % (AUTO) 100 %; WHITE BLOOD COUNT 16.3 10^3/uL (4.0-10.5)
[2017-06-30 05:54] LABS: ALANINE AMINOTRANSFERASE 29 U/L (21-72); ALBUMIN 2.6 g/dL (3.5-5.0); ALKALINE PHOSPHATASE 81 U/L (38-126); ANION GAP 5 (5-19); ASPARTATE AMINO TRANSFERASE 29 U/L (17-59); BILIRUBIN,DIRECT 1.5 mg/dL (0.0-0.4); BILIRUBIN,TOTAL 2.2 mg/dL (0.2-1.3); BLOOD UREA NITROGEN 24 mg/dL (7-20); CARBON DIOXIDE 37 mmol/L (22-30); CHLORIDE 89 mmol/L (98-107); GLUCOSE 102 mg/dL (75-110); POTASSIUM 4.1 mmol/L (3.6-5.0); SODIUM 131.3 mmol/L (137-145); TOTAL PROTEIN 5.3 g/dL (6.3-8.2)
[2017-06-30] MEDS: OXYCODONE HCL IR 5 MG TABLET PO SCH ×3 (06:43→21:10)
[2017-06-30] MEDS: IPRATROPIUM/ALBUTEROL 0.5-2.5 MG/3 ML AMPUL NEB SCH ×3 (08:21→20:22)
[2017-06-30] MEDS: GABAPENTIN 300 MG CAPSULE PO SCH ×2 (09:36→21:10)
[2017-06-30] MEDS: TIZANIDINE HCL 4 MG TABLET PO SCH ×2 (09:36→21:10)
[2017-06-30] MEDS: DIGOXIN 0.25 MG TABLET PO SCH (09:37)
[2017-06-30] MEDS: CEFUROXIME 500 MG TABLET PO SCH ×2 (09:37→17:40)
[2017-06-30] MEDS ORDERED: LISINOPRIL 10 MG TABLET PO SCH (10:00)
[2017-06-30] MEDS ORDERED: TIOTROPIUM BROMIDE DPI 5 CAP/KIT (18 MCG/CAP) IH ONE ×2 (15:42→17:38)
--- NOTE | 2017-06-30 15:45 | PDOC PROGRESS REPORT ---
Subjective Progress Note for:: 06/30/17 Subjective:: No complaints. Patient states that breathing is better. Not having any burning on urination Review of system All organ systems evaluated and negative except as in subjective All significant laboratories and diagnostics have been reviewed Reason For Visit: ABDOMINAL HEMATOMA ON COUMADIN, PNEUMONIA Physical Exam Vital Signs: Temp Pulse Resp BP Pulse Ox 98.3 F 72 20 114/41 L 95 06/30/17 03:38 06/30/17 03:38 06/30/17 03:38 06/30/17 03:38 06/30/17 03:38 Intake & Output 06/28/17 06/29/17 06/30/17 06:59 06:59 06:59 Intake Total 1435 668 896 Output Total 875 2475 650 Balance 560 -1807 246 Weight 75.2 kg 68 kg General appearance: PRESENT: no acute distress, cooperative, thin Head exam: PRESENT: atraumatic, normocephalic Eye exam: PRESENT: conjunctiva pink, EOMI, PERRLA Neck exam: PRESENT: full ROM. ABSENT: JVD, lymphadenopathy, tenderness Respiratory exam: PRESENT: clear to auscultation leah Cardiovascular exam: PRESENT: irregular rhythm, systolic murmur. ABSENT: diastolic murmur Vascular exam: PRESENT: normal capillary refill GI/Abdominal exam: PRESENT: normal bowel sounds, soft. ABSENT: tenderness Extremities exam: PRESENT: full ROM. ABSENT: pedal edema Musculoskeletal exam: PRESENT: ambulatory Neurological exam: PRESENT: alert, awake, oriented to person, oriented to place , oriented to time, oriented to situation, CN II-XII grossly intact Psychiatric exam: PRESENT: appropriate affect, normal mood Skin exam: PRESENT: petechiae Results Laboratory Results: 06/30/17 04:59 06/30/17 04:59 06/30/17 06/30/17 04:59 04:59 WBC 16.3 H RBC 3.30 L Hgb 10.7 L Hct 31.2 L MCV 95 MCH 32.3 MCHC 34.1 RDW 17.2 H Plt Count 302 Seg Neutrophils % 76.7 Lymphocytes % 7.1 L Monocytes % 12.6 Eosinophils % 2.4 Basophils % 1.2 Absolute Neutrophils 12.5 H Absolute Lymphocytes 1.2 Absolute Monocytes 2.1 H Absolute Eosinophils 0.4 Absolute Basophils 0.2 Sodium 131.3 L Potassium 4.1 Chloride 89 L Carbon Dioxide 37 H Anion Gap 5 BUN 24 H Creatinine 1.15 Est GFR ( Amer) > 60 Est GFR (Non-Af Amer) > 60 Glucose 102 Calcium 8.0 L Magnesium 1.7 Total Bilirubin 2.2 H AST 29 ALT 29 Alkaline Phosphatase 81 Total Protein 5.3 L Albumin 2.6 L 06/27/17 04:34 NT-Pro-B Natriuret Pep 12106 H Impressions: Chest CT 06/19/17 11:46 IMPRESSION: 1. COPD. Right lower lobe pneumonia. 2. 2 cm nodule left upper lobe suspicious for carcinoma. Abdomen/Pelvis CT 06/25/17 00:00 IMPRESSION: Stable left lower quadrant abdominal wall hematoma Assessment & Plan - Diagnosis (1) Atrial fibrillation Qualifiers: Atrial fibrillation type: unspecified Qualified Code(s): I48.91 - Unspecified atrial fibrillation Is this a current diagnosis for this admission?: No Plan: Stable. Continue current regimen (2) Hematoma Is this a current diagnosis for this admission?: Yes Plan: No further worsening of hematoma as per repeat CT of abdomen/pelvis. Continue scrotal binder. Continue scheduled OxyCodone (3) Rib fractures Qualifiers: Rib fracture type: multiple ribs Laterality: right Is this a current diagnosis for this admission?: Yes Plan: Pain management and continue zanaflex (4) Leukocytosis Qualifiers: Leukocytosis type: unspecified Qualified Code(s): D72.829 - Elevated white blood cell count, unspecified Is this a current diagnosis for this admission?: Yes Plan: Likely due to hematoma and atelectasis. Patient encouraged as to use incentive spirometer. Follow-up CBC (5) Lung nodule Is this a current diagnosis for this admission?: Yes Plan: 2 cm left upper lung nodule suspicious of carcinoma. Patient notified. Accordingly he was unaware. Dr Callahan following since other possible coagulation issues (6) HTN (hypertension) Qualifiers: Hypertension type: essential hypertension Qualified Code(s): I10 - Essential (primary) hypertension Is this a current diagnosis for this admission?: Yes Plan: Better to continue current regimen (7) CHF (congestive heart failure) Qualifiers: Heart failure type: diastolic Heart failure chronicity: acute Qualified Code(s): I50.31 - Acute diastolic (congestive) heart failure Is this a current diagnosis for this admission?: Yes Plan: Appears to be due to diastolic and valvular dysfunction. Off diuresis since major issue is aortic valve. Needs BP control (8) COPD (chronic obstructive pulmonary disease) Qualifiers: Emphysema type: unspecified Is this a current diagnosis for this admission?: Yes Plan: Continue current management (9) Coagulopathy Is this a current diagnosis for this admission?: Yes Plan: Resolved (10) Tobacco abuse Is this a current diagnosis for this admission?: Yes Plan: Continue nicotine patch (11) Pulmonary hypertension Is this a current diagnosis for this admission?: Yes Plan: Likely due to valvular issues. Also his COPD component is high on the list as well. Multifactorial - Time Time Spent with patient: 15-24 minutes Medications reviewed and adjusted accordingly: Yes Anticipated discharge: Acute Rehab Within: within 24 hours - Inpatient Certification Based on my medical assessment, after consideration of the patient's comorbidities, presenting symptoms, or acuity I expect that the services needed warrant INPATIENT care.: Yes I certify that my determination is in accordance with my understanding of Medicare's requirements for reasonable and necessary INPATIENT services [42 CFR 412.3e].: Yes Medical Necessity: Need Close Monitoring Due to Risk of Patient Decompensation
[2017-06-30] MEDS ORDERED: FLUTICASONE/SALMETEROL DISKUS 250-50 MCG/DOSE IH ONE (21:08)
[2017-06-30] MEDS: MIRTAZAPINE 15 MG TABLET PO SCH (21:10)
[2017-06-30] MEDS: FLUTICASONE/SALMETEROL DISKUS 250-50 MCG/DOSE IH SCH (21:15)
[2017-06-30] MEDS ORDERED: DILTIAZEM HCL 60 MG TABLET PO SCH (22:00)
[2017-07-01] MEDS: OXYCODONE HCL IR 5 MG TABLET PO SCH ×2 (05:14→13:12)
[2017-07-01] MEDS: IPRATROPIUM/ALBUTEROL 0.5-2.5 MG/3 ML AMPUL NEB SCH ×2 (08:45→14:06)
[2017-07-01] MEDS: TIZANIDINE HCL 4 MG TABLET PO SCH (09:35)
[2017-07-01] MEDS: GABAPENTIN 300 MG CAPSULE PO SCH (09:35)
[2017-07-01] MEDS: CEFUROXIME 500 MG TABLET PO SCH (09:35)
[2017-07-01] MEDS: DIGOXIN 0.25 MG TABLET PO SCH (09:35)
[2017-07-01] MEDS: FLUTICASONE/SALMETEROL DISKUS 250-50 MCG/DOSE IH SCH (09:37)
[2017-07-01] MEDS ORDERED: LISINOPRIL 5 MG TABLET PO SCH (10:00)
[2017-07-01 11:37] LABS: ABSOLUTE BASOPHILS # (AUTO) 0.1 10^3/uL (0.0-0.2); ABSOLUTE EOSINOPHILS # (AUTO) 0.4 10^3/uL (0.0-0.6); ABSOLUTE LYMPHOCYTES (AUTO) 0.9 10^3/uL (0.5-4.7); ABSOLUTE MONOCYTES (AUTO) 1.8 10^3/uL (0.1-1.4); ABSOLUTE NEUT (AUTO) 12.2 10^3/uL (1.7-8.2); BASOPHILS % (AUTO) 0.6 % (0-2); EOSINOPHILS % (AUTO) 2.3 % (0-6); HEMATOCRIT 30.6 % (37.9-51.0); HEMOGLOBIN 10.4 g/dL (13.5-17.0); LYMPHOCYTES % (AUTO) 5.8 % (13-45); MEAN CORPUSCULAR HEMOGLOBIN 31.8 pg (27.0-33.4); MEAN CORPUSCULAR HGB CONC 33.8 g/dL (32.0-36.0); MEAN CORPUSCULAR VOLUME 94 fl (80-97); MONOCYTES % (AUTO) 11.7 % (3-13); PLATELET COUNT 325 10^3/uL (150-450); RED BLOOD COUNT 3.26 10^6/uL (4.35-5.55); RED CELL DISTRIBUTION WIDTH 17.1 % (11.5-14.0); SEGMENTED NEUTROPHILS % (AUTO) 79.6 % (42-78); TOTAL CELLS COUNTED % (AUTO) 100 %; WHITE BLOOD COUNT 15.3 10^3/uL (4.0-10.5)
[2017-07-01 11:54] LABS: BLOOD UREA NITROGEN 29 mg/dL (7-20); CALCIUM 8.3 mg/dL (8.4-10.2); CHLORIDE 90 mmol/L (98-107); GLUCOSE 127 mg/dL (75-110); POTASSIUM 4.3 mmol/L (3.6-5.0)
[2017-07-01 12:02] LABS: ANION GAP 2 (5-19); CARBON DIOXIDE 39 mmol/L (22-30)
--- NOTE | 2017-07-01 14:02 | PDOC DISCHARGE SUMMARY ---
General - Admit/Disc Date/PCP Admission Date/Primary Care Provider: 06/19/17 14:30 YUMIKO ZAMBRANO PA-C Discharge Date: 07/01/17 - Discharge Diagnosis (1) Hematoma Is this a current diagnosis for this admission?: Yes (2) Atrial fibrillation Is this a current diagnosis for this admission?: No (3) Rib fractures Is this a current diagnosis for this admission?: Yes (4) Leukocytosis Is this a current diagnosis for this admission?: Yes (5) Lung nodule Is this a current diagnosis for this admission?: Yes (6) HTN (hypertension) Is this a current diagnosis for this admission?: Yes (7) CHF (congestive heart failure) Is this a current diagnosis for this admission?: Yes (8) COPD (chronic obstructive pulmonary disease) Is this a current diagnosis for this admission?: Yes (9) Coagulopathy Is this a current diagnosis for this admission?: Yes (10) Tobacco abuse Is this a current diagnosis for this admission?: Yes (11) Pulmonary hypertension Is this a current diagnosis for this admission?: Yes (12) Acute blood loss anemia Is this a current diagnosis for this admission?: Yes (13) PNA (pneumonia) Is this a current diagnosis for this admission?: Yes - Additional Information Resuscitation Status: Full Code Discharge Diet: Cardiac Discharge Activity: Activity As Tolerated Prescriptions: Diltiazem HCl [Diltiazem 24Hr ER] 120 mg PO DAILY #10 cap.er.24h Oxycodone HCl [Oxy-Ir 5 mg Tablet] 5 mg PO Q6HP PRN #10 tablet PRN Reason: For Pain Scale 3-5 Home Medications: Digoxin [Lanoxin] 250 mcg PO DAILY 06/19/17 Gabapentin 600 mg PO BID 06/19/17 Guaifenesin [Mucinex] 600 mg PO Q12HP PRN 06/19/17 Melatonin 5 mg PO HSP PRN 06/19/17 Sennosides [Senna Lax] 8.6 mg PO DAILYP PRN 06/19/17 Albuterol Sulfate [Ventolin 0.083% Neb 2.5 mg/3 mL Ampul] 2.5 mg NEB RTQ3HP PRN vial.neb 07/01/17 Diltiazem HCl [Diltiazem 24Hr ER] 120 mg PO DAILY #10 cap.er.24h 07/01/17 Fluticasone/Salmeterol [Advair 250-50 Diskus 14 Dose/Diskus] 1 inh IH Q12 inhaler 07/01/17 Ipratropium/Albuterol Sulfate [Duoneb 3 ml Ampul] 3 ml [facility] [id number] vial.[facility] 12/10 Lisinopril [Prinivil 5 mg Tablet] 2.5 mg PO DAILY tablet 07/01/17 Oxycodone HCl [Oxy-Ir 5 mg Tablet] 5 mg PO Q6HP PRN #10 tablet 07/01/17 Tizanidine HCl [Zanaflex 4 mg Tablet] 1 mg PO Q12 tablet 07/01/17 History of Present Illness History of Present Illness: NATHANAEL LYONS is a 77 year old male76 yo who described significant coughing with yellow sputum production and fatigue approximately one week ago. He was diagnosed with acute bronchitis and placed on augmentin and prednisone. Four prior to presentation he began experiencing lower quadrant abdominal pain after a coughing spell. He thought this was an abdominal hernia. Pain intensified over the next several days. Patient has a PMH of chronic afib on coumadin, TAVR aortic valve replacement. CT abd/pel in the ED showed LLQ hematoma . Chest imaging showed a right lower lobe PNA. Patient was started on Vanc/Zosyn in ED, and coumadin was stopped. Serial labs showed a Hgb drop from 12 to 10. A dose of IV vitamin K was given. INR was 2.7. IVF support has been started. Patient had stable vital signs at the time of admission. Patient was admitted under hospitalist service Hospital Course Hospital Course: Patient was admitted under the hospitalist service due to hematoma and acute blood loss due to the same in the setting of anticoagulation use. He was transfused with 1 unit of packed red blood cell. CBC was trended and hemoglobin remained stable. Coumadin was discontinued. Patient is to follow up with his mobile unit assistant for further care and recommendation for anticoagulation since patient suffers from chronic valvular atrial fibrillation. It appears that patient had experience bleeding issues in the past secondary to Coumadin. Follow-up CT of the abdomen and pelvis did not show worsening of hematoma. Patient was placed on the scrotal binder which helped with scrotal swelling. Pain management was provided both for abdominal pain as well as right shoulder pain which patient claims related to rib fractures. Recommend incoming facility to continue addressing this issue. Patient experienced shortness of breath. BNP was obtained and was 13,700. Echocardiogram showed diastolic dysfunction. Patient was transiently diuresis with improvement of complaints of dyspnea. We added long-acting diltiazem. It is noteworthy to mention that patient experiences off and on transient nonsymptomatic blood pressures in the 90s. This drop in blood pressure primarily relate to pulmonary issues. We optimize inhaler treatment for the management of COPD. On admission there was a concern about pneumonia due to finding of right lower lobe infiltrate. Patient was treated with antibiotic however major issue relates to atelectasis. Patient has a history of rib fractures and requires a lot of incentive to take good deep breath. Patient was placed on incentive spirometer. Pain management was provided. Leukocytosis persisted despite treatment and the consensus was that is related to hematoma. There has been a slight trending down by the time of discharge When patient initially presented to emergency room CT scan of the chest was concerning about a 2 cm nodule which was suspicious of a malignancy. Patient was seen by Dr. Sagastume. It was her opinion that these finding could be further evaluation on outpatient basis. Prolonged hospitalization related primarily related due to poor pain control and debility. Patient was finally amenable to go for acute rehab. While hospitalized patient remained stable and prompted to discharge to rehab facility Physical Exam Vital Signs: Temp Pulse Resp BP Pulse Ox 99.9 F 70 24 H 119/44 L 91 L 07/01/17 11:57 07/01/17 11:57 07/01/17 11:57 07/01/17 11:57 07/01/17 11:57 Intake & Output 06/30/17 07/01/17 07/02/17 06:59 06:59 06:59 Intake Total 906 812 Output Total 950 775 Balance -44 37 Weight 68.7 kg 68.9 kg Results Laboratory Results: 07/01/17 11:23 07/01/17 11:23 07/01/17 07/01/17 11:23 11:23 WBC 15.3 H RBC 3.26 L Hgb 10.4 L Hct 30.6 L MCV 94 MCH 31.8 MCHC 33.8 RDW 17.1 H Plt Count 325 Seg Neutrophils % 79.6 H Lymphocytes % 5.8 L Monocytes % 11.7 Eosinophils % 2.3 Basophils % 0.6 Absolute Neutrophils 12.2 H Absolute Lymphocytes 0.9 Absolute Monocytes 1.8 H Absolute Eosinophils 0.4 Absolute Basophils 0.1 Sodium 131.0 L Potassium 4.3 Chloride 90 L Carbon Dioxide 39 H Anion Gap 2 L BUN 29 H Creatinine 1.08 Est GFR ( Amer) > 60 Est GFR (Non-Af Amer) > 60 Glucose 127 H Calcium 8.3 L 06/29/17 22:36 Clean Catch Midstream Urine Culture - Final NO GROWTH 2 DAYS 06/27/17 04:34 NT-Pro-B Natriuret Pep 19444 H Impressions: Chest CT 06/19/17 11:46 IMPRESSION: 1. COPD. Right lower lobe pneumonia. 2. 2 cm nodule left upper lobe suspicious for carcinoma. Abdomen/Pelvis CT 06/25/17 00:00 IMPRESSION: Stable left lower quadrant abdominal wall hematoma Qualifiers - * [facility]INT BEING DISCHARGED WITH ANY OF THE FOLLOWING DIAGNOSIS?: No Plan Discharge Plan: Transfer for acute rehab Time Spent: Greater than 30 Minutes
[2017-07-01 16:36] VITALS: BP 137/44
== END 2017-07-01 18:00 | DRG 604 ==
LOC: ER 09:40 → UNDOADMIN 14:30 → EH 14:30 → 3W 16:13
PROVIDERS: ADMIT Internal Medicine; ATTEND Internal Medicine
PROC: 3E0F73Z Introduction of Anti-inflammatory into Respiratory Tract, Via Natural or Artificial Opening (ICD-10-PCS; principal; 2017-06-19)
PROC: 30233N1 Transfusion of Nonautologous Red Blood Cells into Peripheral Vein, Percutaneous Approach (ICD-10-PCS; 2017-06-21)
DX: S30.1XXA Contusion of abdominal wall, initial encounter (principal); J18.1 Lobar pneumonia, unspecified organism; I50.31 Acute diastolic (congestive) heart failure; S22.41XA Multiple fractures of ribs, right side, initial encounter for closed fracture; J44.0 Chronic obstructive pulmonary disease with (acute) lower respiratory infection; D62 Acute posthemorrhagic anemia; I11.0 Hypertensive heart disease with heart failure; I48.2 Chronic atrial fibrillation; R91.1 Solitary pulmonary nodule; F17.210 Nicotine dependence, cigarettes, uncomplicated; I27.20 Pulmonary hypertension, unspecified; M46.90 Unspecified inflammatory spondylopathy, site unspecified; N40.0 Benign prostatic hyperplasia without lower urinary tract symptoms; M48.00 Spinal stenosis, site unspecified; I73.9 Peripheral vascular disease, unspecified; R01.1 Cardiac murmur, unspecified; J20.9 Acute bronchitis, unspecified; X58.XXXA Exposure to other specified factors, initial encounter; Z79.01 Long term (current) use of anticoagulants; Z79.52 Long term (current) use of systemic steroids; Z79.899 Other long term (current) drug therapy; Z85.46 Personal history of malignant neoplasm of prostate; Z95.0 Presence of cardiac pacemaker; Z91.030 Bee allergy status; Z95.2 Presence of prosthetic heart valve; Z92.3 Personal history of irradiation; Z83.3 Family history of diabetes mellitus; Z82.0 Family history of epilepsy and other diseases of the nervous system
CPT/HCPCS: 36415; 36430; 71250; 74177; 80048; 80053; 80069; 80162; 80202; 81001; 82565; 82803; 83051; 83605; 83690; 83735; 83880; 84439; 84443; 85025; 85027; 85610; 85730; 86850; 86900; 86901; 86920; 87040; 87086; 93005; 93010; 93306; 94640; 94799; G8978-GP; G8979-GP; J1170; J1885; J1940; J1956; J2270; J2405; J2543; J3370; J3430; J3490; J7030; J7060; J7620; P9016

== ENCOUNTER → 2017-07-30 | Outpatient (CLI) | payer MEDICARE, OTHER ==
[2017-07-30 15:13] LABS: INTERNATIONAL RATION (INR) 1.08; PROTHROMBIN TIME 14.5 SEC (11.4-15.4)
== END ==
LOC: LAB 14:56
PROVIDERS: ATTEND Pain Medicine Interventional Pain Medicine
DX: Z51.81 Encounter for therapeutic drug level monitoring (principal)
CPT/HCPCS: 36415; 85610; 85730

== ENCOUNTER 2017-12-14 16:15 | Emergency (ER) | payer MEDICARE, OTHER ==
--- NOTE | 2017-12-14 18:01 | ER Document Report ---
ED Medical Screen (RME) - General Chief Complaint: Cough Stated Complaint: COUGHING UP BLOOD Time Seen by Provider: 12/14/17 17:59 Notes: This is a 77-year-old pleasant individual who had an unfortunate fall approximately 1 week ago and fractured ribs. Was transferred to [facility] [place] where he received stabilization and treatment. Was subsequently discharged. Was recently started on a different blood thinner, Eliquis. Over the last couple days he has been coughing up smaller amounts of blood. Today he coughed up a little bit large amount of blood. Went to [facility] as an outpatient. Was transferred here for further evaluation and treatment. Patient denies any significant pain at this time. No significant shortness of breath. Less than a cupful of blood is reported. TRAVEL OUTSIDE OF THE [place] IN LAST 30 DAYS: No - Related Data Allergies/Adverse Reactions: No Known Drug Allergies Allergy (Verified 12/14/17 16:18) bees Allergy (Uncoded 12/14/17 16:18) Past Medical History - General Information source: Patient - Social History Chew tobacco use (# tins/day): No Frequency of alcohol use: None Drug Abuse: None Family history: Reviewed & Not Pertinent - Past Medical History Cardiac Medical History: Reports: Hx Atrial Fibrillation, Hx Peripheral Vascular Disease, Hx Heart Murmur Pulmonary Medical History: Reports: Hx COPD Renal/ Medical History: Denies: Hx Peritoneal Dialysis Malignancy Medical History: Reports Hx Prostate Cancer Musculoskeltal Medical History: Reports Hx Arthritis - back pains and had needle injections Past Surgical History: Reports: Hx Cardiac Surgery - TAVR aortic valve, Hx Orthopedic Surgery - bilateral knee meniscus repair, Hx Pacemaker, Hx Valve Replacement - Immunizations History of Influenza Vaccine for 12/2016 - 05/2017 Season: Yes Influenza Administration Date for 12/2016 - 05/2017 Season: 01/23/17 Review of Systems - Review of Systems Notes: Constitutional: denies: Chills, Diaphoresis, Fever, Malaise, Weakness EENT: denies: Eye discharge, Blurred vision, Tearing, Double vision, Nose congestion, Nose discharge, Throat swelling, Mouth pain Cardiovascular: denies: Heart racing, Orthopnea, Dyspnea, Chest pain he does complain of history of atrial fibrillation on Eliquis Respiratory: Does complain of a mild cough and pain when he coughs due to broken rib. Coughing up blood today. Gastrointestinal: denies: Abdominal pain, Diarrhea, Nausea, Vomiting, Black stools, bright red blood in stool Genitourinary: denies: Burning, Dysuria, Discharge, Frequency, Flank pain, Hematuria Musculoskeletal: denies: Joint pain, Joint swelling, Muscle pain, Muscle stiffness, back pain Hematologic/Lymphatic: denies: Anemia, Easy bleeding, Easy bruising, Blood clots Neurological/Psychological: denies: Confusion, Dementia, Depression, Loss of consciousness Skin: No lesions, no masses, no skin breakdown, no abscesses Physical Exam - Vital signs Vitals: Temp Pulse Resp BP Pulse Ox 98.1 F 83 24 H 101/59 L 100 12/14/17 16:34 12/14/17 16:34 12/14/17 16:34 12/14/17 16:34 12/14/17 16:34 Interpretation: Normal - General General appearance: Appears well, Alert - HEENT Head: Normocephalic, Atraumatic Eyes: Normal Pupils: PERRL - Respiratory Respiratory status: No respiratory distress Chest status: Nontender Breath sounds: Normal Chest palpation: Normal - Cardiovascular Rhythm: Regular Heart sounds: Normal auscultation Murmur: No - Abdominal Inspection: Normal Distension: No distension Bowel sounds: Normal Tenderness: Nontender Organomegaly: No organomegaly - Back Back: Normal, Nontender - Extremities General upper extremity: Normal inspection, Nontender, Normal color, Normal ROM , Normal temperature General lower extremity: Normal inspection, Nontender, Normal color, Normal ROM , Normal temperature, Normal weight bearing. No: Cande's sign - Neurological Neuro grossly intact: Yes Cognition: Normal Orientation: AAOx4 [place]ra Coma Scale Eye Opening: Spontaneous [place] Coma Scale Verbal: Oriented [place] Coma Scale Motor: Obeys Commands [place] Coma Scale Total: 15 Speech: Normal Motor strength normal: LUE, RUE, LLE, RLE Sensory: Normal - Psychological Associated symptoms: Normal affect, Normal mood - Skin Skin Temperature: Warm Skin Moisture: Dry Skin Color: Normal Course - Re-evaluation Re-evalutation: 12/14/17 19:44 Is a well-appearing male in no acute distress. Sent over by his primary care doctor due to reported hemoptysis. On Eliquis. Recently had rib fracture. Was hospitalized several months ago and diagnosed with a potential malignancy in the chest. Has never followed up with oncology. At this time his blood counts have been performed and there is no evidence of anemia. He has a chronically elevated WBC count. I did have a long and lengthy discussion with the patient with regards to needs for follow-up treatment. I will give him follow-up information for oncology. Dr. Sagastume with oncology has seen patient as an inpatient so he should be able to see her again to have this lung and blood issue worked up. I have advised him to hold Eliquis tonight, tomorrow and is long as he is not having any more hemoptysis he can begin taking Eliquis once a day starting on Saturday and to follow-up with his regular doctor as well for consults and referrals. Will discharge at this time in stable condition. - Vital Signs Vital signs: Temp Pulse Resp BP Pulse Ox 98.1 F 83 24 H 101/59 L 100 12/14/17 16:34 12/14/17 16:34 12/14/17 16:34 12/14/17 16:34 12/14/17 16:34 - Laboratory Result Diagrams: 12/14/17 18:24 12/14/17 18:24 Laboratory results interpreted by me: 12/14/17 12/14/17 12/14/17 18:24 18:24 18:24 WBC 17.2 H RDW 17.1 H Absolute Neutrophils 12.5 H Absolute Monocytes 2.1 H APTT 36.7 H Chloride 95 L Carbon Dioxide 34 H BUN 21 H Glucose 131 H Direct Bilirubin 0.7 H Doctor's Discharge - Discharge Clinical Impression: Hemoptysis, unspecified Condition: Good Disposition: HOME, SELF-CARE Instructions: Hemoptysis ([facility]), Leukocytosis ([facility]) Additional Instructions: Please stop the Eliquis tonight, tomorrow and you may restart it on Saturday morning once a day as long as you are not coughing up any blood or having any bright red blood in your stools or vomiting up any blood. Your blood counts revealed an elevated WBC count. I review of your records show that your blood counts have been elevated for quite some time now. There is a concern in my mind that this could represent a malignancy such as a leukemia or lymphoma. You will need to see an oncologist as well about the abnormal CT scan showing a possible malignancy in your chest. It will be very important that you get consults with your primary care doctor and specialist for further evaluation and treatment. In the event that you began coughing up large amounts of blood please return immediately to the emergency department Referrals: SAURABH DAMON MD [ACTIVE STAFF] - Follow up in 3-5 days AINSLEY RODRIGUEZ MD [Primary Care Provider] - Follow up in 3-5 days
--- NOTE | 2017-12-14 18:33 | RADIOLOGY REPORT (SQ) ---
EXAM DESCRIPTION: CHEST 2 VIEWS COMPLETED DATE/TIME: 12/14/2017 6:16 pm REASON FOR STUDY: hemoptysis COMPARISON: CT chest dated 06/19/2017. EXAM PARAMETERS: NUMBER OF VIEWS: two views TECHNIQUE: Digital Frontal and Lateral radiographic views of the chest acquired. RADIATION DOSE: NA LIMITATIONS: none FINDINGS: LUNGS AND PLEURA: Chronic interstitial changes. Focal pleural thickening and nodularity i n the left upper chest unchanged. No lobar infiltrate. No pleural effusion. MEDIASTINUM AND HILAR STRUCTURES: No masses or contour abnormalities. HEART AND VASCULAR STRUCTURES: Heart normal size. No evidence for failure. BONES: No acute findings. Old rib fractures. HARDWARE: Pacemaker. Aortic valve prosthesis. OTHER: No other significant finding. IMPRESSION: CHRONIC PLEURAL AND PARENCHYMAL SCARRING WITH FOCAL PLEURAL THICKENING AND NODULARITY IN THE LEFT UPPER CHEST. FINDINGS UNCHANGED FROM PRIOR CHEST CT. NO APPARENT ACUTE FINDINGS. TECHNICAL DOCUMENTATION: JOB ID: [id number] [employer]- All Rights Reserved Reading location - IP/workstation name: [email or web address]
[2017-12-14 18:52] LABS: ABSOLUTE BASOPHILS # (AUTO) 0.1 10^3/uL (0.0-0.2); ABSOLUTE EOSINOPHILS # (AUTO) 0.1 10^3/uL (0.0-0.6); ABSOLUTE LYMPHOCYTES (AUTO) 2.3 10^3/uL (0.5-4.7); ABSOLUTE MONOCYTES (AUTO) 2.1 10^3/uL (0.1-1.4); ABSOLUTE NEUT (AUTO) 12.5 10^3/uL (1.7-8.2); BASOPHILS % (AUTO) 0.4 % (0-2); EOSINOPHILS % (AUTO) 0.9 % (0-6); HEMATOCRIT 44.5 % (37.9-51.0); HEMOGLOBIN 15.2 g/dL (13.5-17.0); LYMPHOCYTES % (AUTO) 13.3 % (13-45); MEAN CORPUSCULAR HEMOGLOBIN 30.6 pg (27.0-33.4); MEAN CORPUSCULAR HGB CONC 34.1 g/dL (32.0-36.0); MEAN CORPUSCULAR VOLUME 90 fl (80-97); MONOCYTES % (AUTO) 12.5 % (3-13); PLATELET COUNT 346 10^3/uL (150-450); RED BLOOD COUNT 4.96 10^6/uL (4.35-5.55); RED CELL DISTRIBUTION WIDTH 17.1 % (11.5-14.0); SEGMENTED NEUTROPHILS % (AUTO) 72.9 % (42-78); TOTAL CELLS COUNTED % (AUTO) 100 %; WHITE BLOOD COUNT 17.2 10^3/uL (4.0-10.5)
[2017-12-14 18:55] LABS: INTERNATIONAL RATION (INR) 1.06; PROTHROMBIN TIME 14.4 SEC (11.4-15.4)
[2017-12-14 18:56] LABS: PARTIAL THROMBOPLASTIN TIME 36.7 SEC (23.5-35.8)
[2017-12-14 19:22] LABS: ALANINE AMINOTRANSFERASE 30 U/L (21-72); ALBUMIN 4.1 g/dL (3.5-5.0); ALKALINE PHOSPHATASE 104 U/L (38-126); ANION GAP 8 (5-19); ASPARTATE AMINO TRANSFERASE 28 U/L (17-59); BILIRUBIN,DIRECT 0.7 mg/dL (0.0-0.4); BILIRUBIN,TOTAL 1.2 mg/dL (0.2-1.3); BLOOD UREA NITROGEN 21 mg/dL (7-20); CALCIUM 9.8 mg/dL (8.4-10.2); CARBON DIOXIDE 34 mmol/L (22-30); CHLORIDE 95 mmol/L (98-107); GLUCOSE 131 mg/dL (75-110); POTASSIUM 4.2 mmol/L (3.6-5.0); SODIUM 137.1 mmol/L (137-145); TOTAL PROTEIN 7.4 g/dL (6.3-8.2)
[2017-12-14 19:46] VITALS: BP 137/85
== END 2017-12-14 19:53 | disposition home or self-care (01) ==
LOC: ER 16:15
DX: R04.2 Hemoptysis (principal); S22.39XD Fracture of one rib, unspecified side, subsequent encounter for fracture with routine healing; W19.XXXD Unspecified fall, subsequent encounter; I48.91 Unspecified atrial fibrillation; D72.829 Elevated white blood cell count, unspecified; J44.9 Chronic obstructive pulmonary disease, unspecified; Z91.030 Bee allergy status; Z85.46 Personal history of malignant neoplasm of prostate; Z95.2 Presence of prosthetic heart valve
CPT/HCPCS: 36415; 71046; 80053; 80162; 85025; 85610; 85730; 99284

== ENCOUNTER 2018-01-10 04:14 | Emergency (ER) | payer MEDICARE, OTHER ==
[2018-01-10] MEDS ORDERED: LIDOCAINE 1%/EPINEPHRINE INJ 20 ML VIAL INJ ONE (04:33)
--- NOTE | 2018-01-10 05:10 | RADIOLOGY REPORT (SQ) ---
CLINICAL DATA: fall hit head lac/ on Eliquis TECHNICAL DATA: Multiple axial CT images of the brain were performed followed by sagittal and coronal reconstructed images. The CT study is performed according to ALARA (as low as reasonably achievable) or ALARA/IMAGE GENTLY, with automatic adjustment of mA and/or kV according to patient size. Comparisons: None. FINDINGS: There is no evidence of mass, acute mass effect or midline shift. There are no acute extra-axial fluid collections. There is no evidence of acute intracranial hemorrhage. The cerebral sulci and ventricles are prominent consistent with mild to moderate cerebral volume loss. There are scattered patchy areas of decreased subcortical and periventricular attenuation most consistent with mild chronic microangiopathy.. . There is no significant mucosal thickening of the paranasal sinuses. The mastoid air cells are clear. The orbital contents are grossly unremarkable. No acute osseous abnormalities are identified. There is right parietal scalp soft tissue swelling and laceration with subcutaneous emphysema. IMPRESSION: 1. There is no evidence of acute intracranial pathology. 2. Mild to moderate cerebral volume loss with findings consistent with mild chronic microangiopathy. 3. Right parietal scalp soft tissue swelling and laceration with subcutaneous emphysema.
--- NOTE | 2018-01-10 05:17 | RADIOLOGY REPORT (SQ) ---
CLINICAL DATA: 77-year-old male status post fall on blood thinners. TECHNICAL DATA: Multiple high-resolution thin axial CT images were performed through the cervical spine followed by sagittal and coronal reconstructed images. The CT study is performed according to ALARA (as low as reasonably achievable) or ALARA/IMAGE GENTLY, with automatic adjustment of mA and/or kV according to patient size. COMPARISONS: None. FINDINGS: The cervical vertebrae are normal in height. There is slight straightening of the normal cervical lordosis. There is multilevel mild to moderate disc space narrowing throughout the cervical spine most pronounced at C3-C4, C5-C6 and C6-C7. Bone mineralization is normal. The atlanto-axial articulation is preserved and the odontoid process is intact. There is normal alignment of the facet joints on the parasagittal images. There are mild to moderate degenerative changes of the cervical spine. There is no evidence of acute fracture or subluxation. There is mild C3-C4, C5-C6 and C6-C7 canal stenosis due to prominent disc osteophyte complexes. There is mild to moderate bilateral neural foraminal stenosis at C5-C6 and C6-C7 secondary to uncovertebral joint hypertrophy. The paravertebral and paraspinal soft tissues are unremarkable. Occasional vascular calcifications are noted. The lung apices are clear. There appear to be mild centrilobular emphysematous changes in the visualized lung apices. IMPRESSION: 1. No evidence of acute osseous injury involving the cervical spine. 2. Degenerative changes of the cervical spine most pronounced at C3-C4, C5-C6 and C6-C7. 3. Occasional vascular calcifications. 4. Mild centrilobular emphysematous changes in the visualized lung apices.
--- NOTE | 2018-01-10 05:26 | RADIOLOGY REPORT (SQ) ---
CLINICAL DATA: 77-year-old male status post fall. TECHNICAL DATA: Multiple high-resolution thin axial CT images were performed through the thoracic spine followed by sagittal and coronal reconstructed images. The CT study is performed according to ALARA (as low as reasonably achievable) or ALARA/IMAGE GENTLY, with automatic adjustment of mA and/or kV according to patient size. COMPARISONS: None FINDINGS: The thoracic vertebrae are normal in height. There is mild scoliosis of the thoracic spine convex to the left. There is mild disc space narrowing in the midthoracic spine. There are scattered vacuum discs throughout the thoracic spine and visualized upper lumbar spine. There is mild degenerative spurring throughout the thoracic spine. Bone mineralization is normal. There is normal alignment of the facet joints on the parasagittal images. There are mild degenerative changes of the thoracic spine. There is no evidence of acute fracture or subluxation. There is no significant canal stenosis. There is no significant neural foraminal stenosis. The paravertebral and paraspinal soft tissues are unremarkable. The visualized lungs demonstrate mild centrilobular emphysematous changes. There appears to be patchy interstitial and alveolar airspace disease within portions of the upper and lower lobes which may be related to chronic fibrosis. A superimposed infectious or inflammatory process is not entirely excluded. There are atherosclerotic calcifications along the thoracic aorta and coronary arteries. Pacer wires are noted within the region of the right atrium and right ventricle. There is scoliosis of the thoracolumbar spine. IMPRESSION: 1. No evidence of acute osseous injury involving the thoracic spine. 2. There are degenerative changes along the thoracic spine as described above. 3. Mild centrilobular emphysematous changes with scattered patchy interstitial and alveolar airspace disease throughout the lungs which may be related to chronic fibrosis. A superimposed infectious or inflammatory process is not entirely excluded. 4. Thoracolumbar scoliosis. 5. Vascular calcifications.
--- NOTE | 2018-01-10 06:36 | ER Document Report ---
ED Fall - General Chief Complaint: Fall Stated Complaint: FALL/HEAD INJURY Time Seen by Provider: 01/10/18 04:31 Mode of Arrival: Medic Information source: Patient, Emergency Med Personnel Notes: Patient is a 77-year-old male brought into emergency room by EMS after he sustained a mechanical fall at home. Patient states that he was walking to go to the bathroom he lost his balance and fell backwards striking his head on the corner of the door. He denies any loss of consciousness he has a 4 inch laceration on the right side of his head on the occipital parietal area. He is in a semicircle type fashion and it goes from a thin skin to a thick skin kind of like slice. Also has an indentation. Patient also has another one on the left side same area that is just a small abrasion. Patient's medical history is pertinent for mechanical heart valve replacement pacemaker hypertension. Patient has sustained multiple falls in the past several weeks he has been both at this facility and to the [facility] he has had 3 fractured ribs on one side of 2 on the other side. Today he is only complaining of the laceration to the head and an area in the middle of his back. Patient states that he is supposed to use his walker at all times but he does not. He states that he feels it is easier to feel his way along the wall than it is to use the walker. TRAVEL OUTSIDE OF THE [place] IN LAST 30 DAYS: No - HPI Occurred: Just prior to arrival Where: Home Context: Tripped, Lost balance Associated symptoms: denies: Lost consciousness Location of injury/pain: Back, Head Quality of pain: Sharp, Throbbing Pain Level: 3 Prehospital interventions: C-collar - Related data Allergies/Adverse Reactions: No Known Drug Allergies Allergy (Verified 01/10/18 04:34) bees Allergy (Uncoded 12/14/17 16:18) Past Medical History - General Information source: Patient, Emergency Med Personnel - Social History Smoking Status: Former Smoker Cigarette use (# per day): No Chew tobacco use (# tins/day): No Smoking Education Provided: No Frequency of alcohol use: None Drug Abuse: None Lives with: Friend Family History: Reviewed & Not Pertinent Patient has suicidal ideation: No Patient has homicidal ideation: No - Past Medical History Cardiac Medical History: Reports: Hx Atrial Fibrillation, Hx Hypertension, Hx Peripheral Vascular Disease, Hx Heart Murmur Pulmonary Medical History: Reports: Hx COPD Renal/ Medical History: Denies: Hx Peritoneal Dialysis Malignancy Medical History: Reports Hx Prostate Cancer Musculoskeletal Medical History: Reports Hx Arthritis - back pains and had needle injections Past Surgical History: Reports: Hx Cardiac Surgery - TAVR aortic valve; pacemaker, Hx Orthopedic Surgery - bilateral knee meniscus repair, Hx Pacemaker , Hx Valve Replacement Review of Systems - Review of Systems Constitutional: No symptoms reported EENT: No symptoms reported Cardiovascular: No symptoms reported Respiratory: No symptoms reported Gastrointestinal: No symptoms reported Genitourinary: No symptoms reported Male Genitourinary: No symptoms reported Musculoskeletal: No symptoms reported Skin: Other - Head laceration/head abrasion Hematologic/Lymphatic: No symptoms reported Neurological/Psychological: No symptoms reported, See HPI -: Yes All other systems reviewed and negative Physical Exam - Vital signs Vitals: Resp BP Pulse Ox 18 154/57 H 95 01/10/18 04:20 01/10/18 04:20 01/10/18 04:20 Interpretation: Hypertensive, Other - Patient's vital signs did not transmit through. His temp was 98 8 his pulse rate is around 78 respiratory rate is 18 his blood pressure did show up at 154/57. - Notes Notes: This is a fragile appearing 77-year-old male who at the time of physical exam is in no distress. He is awake alert and is oriented. He is only complaining of pain to the right side of his head where the laceration is at and in the middle of his thoracic spine. - General General appearance: Alert In distress: None - HEENT Head: Normocephalic, Other - Examination patient's right side of his head in the occipital parietal area shows a 4 inch semicircle laceration that starts with the thin skin and pushes deeper into the laceration. Almost like shaving a ham. The edges of the one side are very thin going back deep into the tissue. This runs along patient's limited hairline. Moderate amount of bleeding was noted secondary to patient using Eliquis.. No: Atraumatic Nasal: Normal. No: Bloody discharge, Dia deformity, Ecchymosis Mouth/Lips: Normal Mucous membranes: Normal, Moist Pharynx: Normal. No: Blood in hypopharynx, Erythema, Exudate, Peritonsillar abscess, Post nasal drainage, Retropharyngeal abscess, Uvular edema Neck: Normal, Supple. No: Anterior cervical chain, Posterior cervical chain, Lymphadenopathy, Meningismus, Neck mass, Subcutaneous emphysema, Thyroid nodule - Respiratory Respiratory status: No respiratory distress Chest status: Nontender, Other - Examination of patient's chest shows no sign of abrasions or ecchymosis. Breath sounds: Normal. No: Rales, Rhonchi, Stridor, Wheezing Chest palpation: Normal. No: Subcutaneous emphysema, Sucking chest wound - Cardiovascular Rhythm: Regular Heart sounds: Normal auscultation Murmur: No - Abdominal Inspection: Normal Distension: No distension Bowel sounds: Normal Tenderness: Nontender, Other - Examination of patient's abdomen shows no sign of bruising. There is no tenderness noted in any of the 4 quads. He has bowel sounds all 4 quads. Organomegaly: No organomegaly - Back Back: Tender, Vertebra tenderness, Scoliosis, Other - Emanation of patient's back thoracic spine area shows some mild reproducible tenderness about mid thoracic spine. There does not appear to be any ecchymosis or abrasions in the area. Patient does display some moderate amount of kyphosis and some mild scoliosis.. No: Deformity/step-off, CVA tenderness, Scars - Extremities General upper extremity: Normal inspection, Nontender, Normal strength, Normal temperature General lower extremity: Normal inspection, Nontender, Normal strength, Normal temperature - Neurological Neuro grossly intact: Yes Cognition: Normal Orientation: AAOx4 [place] Coma Scale Eye Opening: Spontaneous [place] Coma Scale Verbal: Oriented [place] Coma Scale Motor: Obeys Commands [place] Coma Scale Total: 15 Speech: Normal - Skin Skin Temperature: Warm Skin irregularity: Laceration, other - See description and scalp above. Course - Re-evaluation Re-evalutation: 01/10/18 06:43 Patient's stay in the emergency room was basically uneventful. He did well with the suturing on the right side. Left side had approximately a 3 cm abrasion kind of mirroring the other side but not deep. We cleaned out and placed Dermabond on it. The suture side ended up taking 18 sutures. See that procedure. Stayed awake and alert the entire time. He is coherent. His neuro check after sutures was also normal. Patient does complain of being somewhat tired but is carrying on normal conversation with me during suturing. 01/10/18 06:54 Patient informed me he was up-to-date on his tetanus shots. He also refused any type of pain medications. Stated he would use [id number] meds. - Vital Signs Vital signs: Temp Pulse Resp BP Pulse Ox 97.4 F 18 145/71 H 96 01/10/18 04:23 01/10/18 05:01 01/10/18 05:01 01/10/18 05:01 Procedures - Laceration/Wound Repair Right Head Time completed: 06:45 Wound length (cm): 8 Wound's Depth, Shape: Into muscle, Irregular, Flap Laceration pre-procedure: Sterile PPE donned, Betadine prep applied, Sterile drapes applied, Shur-Clens applied Anesthetic type: 1% Lidocaine w/epi Volume Anesthetic (mLs): 10 Wound explored: Clean Irrigated w/ Saline (mLs): 200 Wound Debrided: Minimal Wound Repaired With: Sutures Suture Size/Type: 4:0, Prolene Number of Sutures: 18 Layer Closure?: No Post-procedure wound care: Sterile dressing applied Post-procedure NV exam normal: Yes Complications: No Notes: 01/10/18 06:47 I used a combination of simple interrupted and horizontal mattress to pull the entire thing together. I did used a mattress is to pull the tender skin together with the thicker skin given it more support. Final product was a good alignment good hemostasis. Adult Head Front/Back picture: 1 - Area of 4 inch / 8 cm laceration Discharge - Discharge Clinical Impression: Laceration of head Qualifiers: Encounter type: initial encounter Location of open wound of head: scalp Foreign body presence: without foreign body Qualified Code(s): S01.01XA - Laceration without foreign body of scalp, initial encounter Abrasion of left side of back Qualifiers: Encounter type: initial encounter Qualified Code(s): S20.412A - Abrasion of left back wall of thorax, initial encounter Concussion Qualifiers: Encounter type: initial encounter Loss of consciousness presence/duration: without LOC Qualified Code(s): S06.0X0A - Concussion without loss of consciousness, initial encounter Condition: Stable Disposition: HOME, SELF-CARE Instructions: Antibiotic Ointment Protection ([facility]), Laceration Care ([facility]), Soap Cleansing ([facility]), Concussion ([facility]), Post-Concussion Syndrome ([facility]) Additional Instructions: Home and rest. Take all the antibiotics as prescribed. Since this is about your fourth fall in the last several weeks I highly suggest that you stay with your walker instead of hanging onto the wall. With you taking blood thinners you are playing with fire by walking around with no support. Keep the areas clean and dry as possible for 48 hours. Remember if you put too much stress on my sutures you pull him back apart since the area there was thin with the skin. Should you have any concerns or problems return to ER for recheck. The sutures should remain in probably 8-10 days. Again if it does not look like it is healing appropriately or you have any concerns come back and let us take a look at him. Prescriptions: Cephalexin Monohydrate [Keflex 500 mg Capsule] 500 mg PO Q6H 7 Days #28 capsule Forms: Elevated Blood Pressure Referrals: YUMIKO ZAMBRANO PA-C [Primary Care Provider] - Follow up as needed
[2018-01-10 11:17] VITALS: BP 148/65
== END 2018-01-10 11:29 | disposition home or self-care (01) ==
LOC: ER 04:14
DX: S06.0X0A Concussion without loss of consciousness, initial encounter (principal); S09.12XA Laceration of muscle and tendon of head, initial encounter; S01.01XA Laceration without foreign body of scalp, initial encounter; S20.412A Abrasion of left back wall of thorax, initial encounter; R51 Headache; M54.6 Pain in thoracic spine; W19.XXXA Unspecified fall, initial encounter; W22.8XXA Striking against or struck by other objects, initial encounter; Y93.89 Activity, other specified; Y92.009 Unspecified place in unspecified non-institutional (private) residence as the place of occurrence of the external cause; M41.9 Scoliosis, unspecified; I10 Essential (primary) hypertension; J44.9 Chronic obstructive pulmonary disease, unspecified; Z95.0 Presence of cardiac pacemaker; Z91.030 Bee allergy status; Z87.891 Personal history of nicotine dependence; Z85.46 Personal history of malignant neoplasm of prostate; Z95.2 Presence of prosthetic heart valve; Z79.01 Long term (current) use of anticoagulants
CPT/HCPCS: 99284; 70450; 72125; 72128; 12004; J3490

== ENCOUNTER → 2018-01-31 | Outpatient (CLI) | payer MEDICARE, OTHER ==
--- NOTE | 2018-01-31 12:57 | RADIOLOGY REPORT (SQ) ---
EXAM DESCRIPTION: CT HEAD WITH COMPLETED DATE/TIME: 01/31/2018 10:19 am REASON FOR STUDY: PULMONARY NODULES, DIZZINESS R91.1 SOLITARY PULMONARY NODULE R42 DIZZINESS AND G IDDINESS COMPARISON: 01/10/2018 TECHNIQUE: Axial images acquired through the brain with intravenous contrast. Images reviewed with b one, brain and subdural windows. Additional sagittal and coronal reconstructions were generated. Azul ges stored on PACS. All CT scanners at this facility use dose modulation, iterative reconstruction, and/or weight based d osing when appropriate to reduce radiation dose to as low as reasonably achievable (ALARA). [facility]: Dose Right [facility]: CareDose [facility]: Dose Right [facility]: Teradose 4D [facility]: [employer] CONTRAST TYPE AND DOSE: 80 mL Omnipaque 350- low osmolar. RENAL FUNCTION: BUN 6 creatinine 1 RADIATION DOSE: CT Rad equipment meets quality standard of care and radiation dose reduction techniq ues were employed. CTDIvol: 48.7 mGy. DLP: 979 mGy-cm.. LIMITATIONS: None. FINDINGS: VENTRICLES: Prominent secondary to cortical atrophy. CEREBRUM: No masses. No hemorrhage. No midline shift. Normal mercedes/white matter differentiation. No ev idence for acute infarction. No enhancing lesions. CEREBELLUM: No masses. No hemorrhage. No alteration of density. No evidence for acute infarction. No enhancing lesions. EXTRA-AXIAL SPACES: No fluid collections. No enhancing lesions. ORBITS AND GLOBE: No intra- or extraconal masses. Normal contour of globe without masses. CALVARIUM: No fracture. PARANASAL SINUSES: No fluid or mucosal thickening. SOFT TISSUES: No mass or hematoma. OTHER: No other significant finding. IMPRESSION: Mild involutional changes of aging with no acute intracranial pathology. EVIDENCE OF ACUTE STROKE: NO. TECHNICAL DOCUMENTATION: JOB ID: [id number] Quality ID # [id number]: Final reports with documentation of one or more dose reduction techniques (e.g., Au tomated exposure control, adjustment of the mA and/or kV according to patient size, use of iterative reconstruction technique) 2010 [employer]- All Rights Reserved Reading location - IP/workstation name: [email or web address]
--- NOTE | 2018-01-31 13:09 | RADIOLOGY REPORT (SQ) ---
EXAM DESCRIPTION: CT CHEST WITH COMPLETED DATE/TIME: 01/31/2018 10:19 am REASON FOR STUDY: PULMONARY NODULES, DIZZINESS R91.1 SOLITARY PULMONARY NODULE R42 DIZZINESS AND G IDDINESS COMPARISON: Chest x-ray 12/14/2017 TECHNIQUE: CT scan of the chest performed using helical scanning technique with dynamic intravenous contrast injection. Images reviewed with lung, soft tissue and bone windows. Reconstructed coronal and sagittal MPR and MIP images reviewed. All images stored on PACS. All CT scanners at this facility use dose modulation, iterative reconstruction, and/or weight based d osing when appropriate to reduce radiation dose to as low as reasonably achievable (ALARA). [facility]: Dose Right [facility]: CareDose [facility]: Dose Right [facility]: Teradose 4D [facility]: [employer] CONTRAST TYPE AND DOSE: contrast/concentration: Isovue 350.00 mg/ml; Total Contrast Delivered: 80.0 ml; Total Saline Delivered: 55.0 ml RENAL FUNCTION: BUN 6 creatinine 1 RADIATION DOSE: CT Rad equipment meets quality standard of care and radiation dose reduction techniq ues were employed. CTDIvol: 4.2 mGy. DLP: 168 mGy-cm. . LIMITATIONS: None. FINDINGS: LUNGS AND PLEURA: Marked centrilobular emphysematous changes. Cavitary 4.5 cm left pleura l mass with adjacent rib destruction in slight extension outside the chest wall. Chronic interstitia l changes. There is a small area of pleural/parenchymal scarring in the right lung on image 55. Pos sible subpleural 10 mm nodule in the right lower lobe posteriorly on image 66. 5 mm right lower lobe pulmonary nodule on image 74. HILAR AND MEDIASTINAL STRUCTURES: There are some nonspecific mediastinal nodes with couple precarinal nodes that measure about 9 mm in short axis. No hilar masses or adenopathy. HEART AND VASCULAR STRUCTURES: No aneurysm or dissection. Prior TAVR. No pericardial effusion. Cor onary atherosclerosis. HARDWARE: TAVR. Pacemaker. UPPER ABDOMEN: A large gallstone is present. THYROID AND OTHER SOFT TISSUES: No masses. No adenopathy. BONES: Tumor direct invasion of a couple of the left ribs. OTHER: No other significant finding. IMPRESSION: 1. 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 2. There are a couple of nonspecific right pulmonary nodules, possible metastases. 3. Marked chronic lung disease. 4. Coronary atherosclerosis. 5. Cholelithiasis. TECHNICAL DOCUMENTATION: JOB ID: [id number] Quality ID # [id number]: Final reports with documentation of one or more dose reduction techniques (e.g., Au tomated exposure control, adjustment of the mA and/or kV according to patient size, use of iterative reconstruction technique) 2010 [employer]- All Rights Reserved Reading location - IP/workstation name: [email or web address]
== END ==
LOC: RAD 09:03
PROVIDERS: ATTEND Internal Medicine Hematology & Oncology
DX: R91.1 Solitary pulmonary nodule (principal); R42 Dizziness and giddiness
CPT/HCPCS: 70460; 71260

== ENCOUNTER 2018-02-14 12:58 | Emergency (ER) | payer MEDICARE, OTHER ==
[2018-02-14] MEDS ORDERED: RINGERS SOLUTION,LACTATED 1,000 ML IV ONE ×2 (14:10→14:35)
[2018-02-14] MEDS ORDERED: NICOTINE 14 MG/24 HR PATCH.TD24 TD ONE (14:14)
[2018-02-14 14:23] LABS: MEAN CORPUSCULAR HEMOGLOBIN 25.8 pg (27.0-33.4); MEAN CORPUSCULAR HGB CONC 31.5 g/dL (32.0-36.0); MEAN CORPUSCULAR VOLUME 82 fl (80-97); PLATELET COUNT 420 10^3/uL (150-450); RED BLOOD COUNT 1.55 10^6/uL (4.35-5.55); RED CELL DISTRIBUTION WIDTH 19.5 % (11.5-14.0); WHITE BLOOD COUNT 6.8 10^3/uL (4.0-10.5)
[2018-02-14 14:26] LABS: ALANINE AMINOTRANSFERASE 151 U/L (21-72); ALKALINE PHOSPHATASE 85 U/L (38-126); ANION GAP 16 (5-19); ASPARTATE AMINO TRANSFERASE 202 U/L (17-59); BILIRUBIN,DIRECT 0.4 mg/dL (0.0-0.4); BILIRUBIN,TOTAL 0.4 mg/dL (0.2-1.3); BLOOD UREA NITROGEN 37 mg/dL (7-20); CALCIUM 8.5 mg/dL (8.4-10.2); CARBON DIOXIDE 18 mmol/L (22-30); CHLORIDE 103 mmol/L (98-107); CREATINE KINASE 243 U/L (55-170); GLUCOSE 118 mg/dL (75-110); POTASSIUM 4.5 mmol/L (3.6-5.0); TOTAL PROTEIN 5.4 g/dL (6.3-8.2)
--- NOTE | 2018-02-14 14:26 | ER Document Report ---
ED General - General Chief Complaint: Diarrhea Stated Complaint: WEAKNESS Time Seen by Provider: 02/14/18 14:04 Mode of Arrival: Medic Information source: Patient Notes: 78-year-old male with atrial fibrillation, hypertension, COPD, prostate cancer, spinal stenosis, osteoarthritis, history of aortic valve replacement in 2013 and pacemaker placement. Presents with complaint of weakness. Patient states that he has been weak for approximately 2 weeks. He reports decreased p.o. intake, decreased energy. Patient also reports 2 weeks of diarrhea, a productive intermittent cough for 4 days.. Patient denies any recent antibiotic use. He is on oxygen for his COPD and denies worsening shortness of breath. Patient reports chest pain but when further questioned states that the pain is really in his left shoulder and has been there for several months. He states it is related to his severe arthritis. Patient reports a a fall approximately 1 month ago secondary to dizziness. He was seen in the emergency department at that time and had sutures placed which are still in place. Patient currently denying fever, chills, headache, slurred speech, worsening shortness of breath. TRAVEL OUTSIDE OF THE [place] IN LAST 30 DAYS: No - HPI Onset: Other Quality of pain: Achy Severity: Mild Associated symptoms: Body/muscle aches, Productive cough, Diarrhea, Shortness of breath, Weakness, Other - Fatigue. denies: Chest pain, Chills, Fever, Headache, Leg swelling, Nausea, Vomiting Exacerbated by: Movement, Walking Relieved by: Denies Similar symptoms previously: Yes Recently seen / treated by doctor: Yes - Related Data Allergies/Adverse Reactions: No Known Drug Allergies Allergy (Verified 01/10/18 04:34) bees Allergy (Uncoded 12/14/17 16:18) Past Medical History - General Information source: Patient, [facility] - Social History Smoking Status: Current Every Day Smoker Cigarette use (# per day): Yes - 5 Smoking Education Provided: Yes - Smoking cessation counseling was provided for 4 minutes at the bedside Frequency of alcohol use: None Drug Abuse: None Lives with: Friend Family History: Reviewed & Not Pertinent Patient has suicidal ideation: No Patient has homicidal ideation: No - Past Medical History Cardiac Medical History: Reports: Hx Atrial Fibrillation, Hx Hypertension, Hx Peripheral Vascular Disease, Hx Heart Murmur Pulmonary Medical History: Reports: Hx COPD Renal/ Medical History: Denies: Hx Peritoneal Dialysis Malignancy Medical History: Reports Hx Prostate Cancer Musculoskeletal Medical History: Reports Hx Arthritis - back pains and had needle injections Past Surgical History: Reports: Hx Cardiac Surgery - TAVR aortic valve; pacemaker, Hx Orthopedic Surgery - bilateral knee meniscus repair, Hx Pacemaker , Hx Valve Replacement Review of Systems - Review of Systems Constitutional: Malaise, Weakness, Weight loss, Recent illness. denies: Chills , Diaphoresis, Fever EENT: denies: Blurred vision, Throat pain, Difficulty swallowing Cardiovascular: Chest pain, Dyspnea, Dizziness Respiratory: Cough, Short of breath Gastrointestinal: Diarrhea, Poor appetite, Poor fluid intake, Other - Bright red blood per rectum. denies: Abdominal pain, Vomiting Genitourinary: denies: Dysuria, Flank pain Male Genitourinary: No symptoms reported Musculoskeletal: Back pain Skin: denies: Rash Hematologic/Lymphatic: No symptoms reported Neurological/Psychological: denies: Lost consciousness, Headaches -: Yes All other systems reviewed and negative Physical Exam - Vital signs Vitals: Resp 12 02/14/18 13:07 - Notes Notes: PHYSICAL EXAMINATION: GENERAL: Thin, frail, cachectic, pale on oxygen. HEAD: Scalp laceration clean dry and intact with sutures still in place. No associated erythema. EYES: Pupils equal round and reactive to light, extraocular movements intact, sclera anicteric, pale conjunctiva ENT: Nares patent, oropharynx clear without exudates. Moist mucous membranes. NECK: Normal range of motion, supple without lymphadenopathy LUNGS: Breath sounds clear to auscultation bilaterally and equal. No wheezes rales or rhonchi. HEART: Tachycardic, irregular rhythm. ABDOMEN: Diffuse abdominal tenderness greatest in the right upper quadrant. No guarding, rebound. No evidence of surgical abdomen. Rectal; no gross blood, stool brown, small external hemorrhoid Musculoskeletal: Normal range of motion, no pitting or edema. No cyanosis. NEUROLOGICAL: Cranial nerves grossly intact. Normal speech, Normal sensory, motor exams PSYCH: Normal mood, normal affect. SKIN: Pallor, Course - Re-evaluation Re-evalutation: Laboratory 02/14/18 02/14/18 02/14/18 12:35 12:35 12:35 WBC 6.8 RBC 1.55 L Hgb 4.0 L* Hct 12.7 L* MCV 82 MCH 25.8 L MCHC 31.5 L RDW 19.5 H Plt Count 420 Total Counted 100 Seg Neutrophils % Not Reportable Seg Neuts % (Manual) 79 H Lymphocytes % Not Reportable Lymphocytes % (Manual) 14 Monocytes % Not Reportable Monocytes % (Manual) 7 Eosinophils % Not Reportable Eosinophils % (Manual) 0 Basophils % Not Reportable Basophils % (Manual) 0 Absolute Neutrophils Not Reportable Abs Neuts (Manual) 5.4 Absolute Lymphocytes Not Reportable Abs Lymphs (Manual) 1.0 Absolute Monocytes Not Reportable Abs Monocytes (Manual) 0.5 Absolute Eosinophils Not Reportable Absolute Eos (Manual) 0.0 Absolute Basophils Not Reportable Abs Basophils (Manual) 0.0 Platelet Comment ADEQUATE Polychromasia 1+ Hypochromasia 2+ Anisocytosis 2+ Tear Drop Cells SLIGHT Ovalocytes SLIGHT PT 107.7 H* INR 13.73 H* VBG pH VBG pCO2 VBG HCO3 VBG Base Excess Sodium 137.0 Potassium 4.5 Chloride 103 Carbon Dioxide 18 L Anion Gap 16 BUN 37 H Creatinine 1.36 H Est GFR ( Amer) > 60 Est GFR (Non-Af Amer) 51 L Glucose 118 H Lactic Acid Calcium 8.5 Total Bilirubin 0.4 Direct Bilirubin 0.4 Neonat Total Bilirubin Not Reportable Neonat Direct Bilirubin Not Reportable Neonat Indirect Bili Not Reportable AST 202 H ALT 151 H Alkaline Phosphatase 85 Creatine Kinase 243 H CK-MB (CK-2) Troponin I NT-Pro-B Natriuret Pep Total Protein 5.4 L Albumin 3.0 L Urine Color Urine Appearance Urine pH Ur Specific [place] Urine Protein Urine Glucose (UA) Urine Ketones Urine Blood Urine Nitrite Urine Bilirubin Urine Urobilinogen Ur Leukocyte Esterase U Hyaline Cast (Auto) Urine Ascorbic Acid Stool Occult Blood Blood Type Antibody Screen Crossmatch 02/14/18 02/14/18 02/14/18 12:35 13:33 14:45 WBC RBC Hgb Hct MCV MCH MCHC RDW Plt Count Total Counted Seg Neutrophils % Seg Neuts % (Manual) Lymphocytes % Lymphocytes % (Manual) Monocytes % Monocytes % (Manual) Eosinophils % Eosinophils % (Manual) Basophils % Basophils % (Manual) Absolute Neutrophils Abs Neuts (Manual) Absolute Lymphocytes Abs Lymphs (Manual) Absolute Monocytes Abs Monocytes (Manual) Absolute Eosinophils Absolute Eos (Manual) Absolute Basophils Abs Basophils (Manual) Platelet Comment Polychromasia Hypochromasia Anisocytosis Tear Drop Cells Ovalocytes PT INR VBG pH VBG pCO2 VBG HCO3 VBG Base Excess Sodium Potassium Chloride Carbon Dioxide Anion Gap BUN Creatinine Est GFR ( Amer) Est GFR (Non-Af Amer) Glucose Lactic Acid 4.0 H Calcium Total Bilirubin Direct Bilirubin Neonat Total Bilirubin Neonat Direct Bilirubin Neonat Indirect Bili AST ALT Alkaline Phosphatase Creatine Kinase CK-MB (CK-2) 8.93 H Troponin I 0.034 NT-Pro-B Natriuret Pep 4450 H Total Protein Albumin Urine Color Urine Appearance Urine pH Ur Specific [place] Urine Protein Urine Glucose (UA) Urine Ketones Urine Blood Urine Nitrite Urine Bilirubin Urine Urobilinogen Ur Leukocyte Esterase U Hyaline Cast (Auto) Urine Ascorbic Acid Stool Occult Blood Blood Type O NEGATIVE Antibody Screen NEGATIVE Crossmatch See Detail 02/14/18 02/14/18 02/14/18 15:00 15:00 15:45 WBC RBC Hgb Hct MCV MCH MCHC RDW Plt Count Total Counted Seg Neutrophils % Seg Neuts % (Manual) Lymphocytes % Lymphocytes % (Manual) Monocytes % Monocytes % (Manual) Eosinophils % Eosinophils % (Manual) Basophils % Basophils % (Manual) Absolute Neutrophils Abs Neuts (Manual) Absolute Lymphocytes Abs Lymphs (Manual) Absolute Monocytes Abs Monocytes (Manual) Absolute Eosinophils Absolute Eos (Manual) Absolute Basophils Abs Basophils (Manual) Platelet Comment Polychromasia Hypochromasia Anisocytosis Tear Drop Cells Ovalocytes PT INR VBG pH 7.39 VBG pCO2 35.2 VBG HCO3 21.0 VBG Base Excess -3.7 Sodium Potassium Chloride Carbon Dioxide Anion Gap BUN Creatinine Est GFR ( Amer) Est GFR (Non-Af Amer) Glucose Lactic Acid Calcium Total Bilirubin Direct Bilirubin Neonat Total Bilirubin Neonat Direct Bilirubin Neonat Indirect Bili AST ALT Alkaline Phosphatase Creatine Kinase CK-MB (CK-2) Troponin I NT-Pro-B Natriuret Pep Total Protein Albumin Urine Color YELLOW Urine Appearance CLEAR Urine pH 5.0 Ur Specific [place] 1.015 Urine Protein NEGATIVE Urine Glucose (UA) NEGATIVE Urine Ketones NEGATIVE Urine Blood NEGATIVE Urine Nitrite NEGATIVE Urine Bilirubin NEGATIVE Urine Urobilinogen 2.0 H Ur Leukocyte Esterase NEGATIVE U Hyaline Cast (Auto) 3 Urine Ascorbic Acid NEGATIVE Stool Occult Blood POSITIVE Blood Type Antibody Screen Crossmatch 02/14/18 18:30 WBC 10.1 RBC 2.12 L Hgb 6.0 L Hct 17.4 L MCV 82 MCH 28.3 MCHC 34.6 RDW 17.2 H Plt Count 334 Total Counted Seg Neutrophils % Seg Neuts % (Manual) Lymphocytes % Lymphocytes % (Manual) Monocytes % Monocytes % (Manual) Eosinophils % Eosinophils % (Manual) Basophils % Basophils % (Manual) Absolute Neutrophils Abs Neuts (Manual) Absolute Lymphocytes Abs Lymphs (Manual) Absolute Monocytes Abs Monocytes (Manual) Absolute Eosinophils Absolute Eos (Manual) Absolute Basophils Abs Basophils (Manual) Platelet Comment Polychromasia Hypochromasia Anisocytosis Tear Drop Cells Ovalocytes PT INR VBG pH VBG pCO2 VBG HCO3 VBG Base Excess Sodium Potassium Chloride Carbon Dioxide Anion Gap BUN Creatinine Est GFR ( Amer) Est GFR (Non-Af Amer) Glucose Lactic Acid Calcium Total Bilirubin Direct Bilirubin Neonat Total Bilirubin Neonat Direct Bilirubin Neonat Indirect Bili AST ALT Alkaline Phosphatase Creatine Kinase CK-MB (CK-2) Troponin I NT-Pro-B Natriuret Pep Total Protein Albumin Urine Color Urine Appearance Urine pH Ur Specific [place] Urine Protein Urine Glucose (UA) Urine Ketones Urine Blood Urine Nitrite Urine Bilirubin Urine Urobilinogen Ur Leukocyte Esterase U Hyaline Cast (Auto) Urine Ascorbic Acid Stool Occult Blood Blood Type Antibody Screen Crossmatch Chest X-Ray 02/14/18 14:08 IMPRESSION: STABLE APPEARANCE OF THE CHEST DESCRIBED. NO ACUTE FINDINGS. Abdomen Ultrasound 02/14/18 14:09 IMPRESSION: Cholelithiasis. 78-year-old male with atrial fibrillation, hypertension, COPD, prostate cancer, spinal stenosis, osteoarthritis, history of aortic valve replacement in 2013 and pacemaker placement. Presents with complaint of weakness. Patient states that he has been weak for approximately 2 weeks. He reports decreased p.o. intake, decreased energy. Patient also reports 2 weeks of diarrhea, a productive intermittent cough for 4 days.. Patient denies any recent antibiotic use. He is on oxygen for his COPD and denies worsening shortness of breath. Vital signs reviewed upon arrival and patient is tachycardic, hypotensive. He is pale. Rectal exam shows no brisk bleeding, black stool but stool is occult positive. Patient received a total of 3 units of PRBCs, 2 units of FFP, 10 mg of IV vitamin K, 50 mcg of fentanyl, 2 L of LR. CBC shows a hemoglobin of 4. INR of 13.7. Patient has a mild ASHLEY BUN 37, creatinine 1.36. Patient did receive Tylenol, Benadryl and Lasix throughout his transfusion. Right upper quadrant ultrasound was obtained at the bedside and significant for cholelithiasis. No evidence of cholecystitis. 02/14/18 15:40 Lab called with a hemoglobin of 4. Patient found to have an INR of 13. 2 more large bore IVs were placed. PRBCs and fresh frozen plasma ordered. 02/14/18 15:41 Patient had an episode of hypotension. Trauma blood ordered. 10 mg of vitamin K IV administered. 02/14/18 16:30 Stool positive for blood. Transfer initiated. I attempted to call patient's roommate Maite Carbajal as the patient requested but was unable to reach her and her mailbox was full. 02/14/18 18:47 Patient was reevaluated after receiving 2 units of PRBCs, 2 units of FFP. Vital signs have improved and current blood pressure is 135/76 02/14/18 18:48 Current blood pressure 123/56 with a heart rate of 81. Patient remains alert, awake. Breath sounds clear. Repeat hemoglobin now 6. Patient will receive 3rd units of PRBCs. 02/14/18 18:49 Attempted again to contact patient's roommate Maite Carbajal at [phone]. Again no answer and unable to leave a voicemail because her mailbox is full. 02/14/18 19:30 Patient accepted by at [facility]. Repeat lactate is now 1.0. Repeat PT 29.6 repeat INR now 2.66. - Vital Signs Vital signs: Temp Pulse Resp BP Pulse Ox 97.8 F 80 17 131/66 H 100 02/14/18 19:27 02/14/18 19:26 02/14/18 19:26 02/14/18 19:26 02/14/18 19:26 - Laboratory Result Diagrams: 02/14/18 18:30 02/14/18 12:35 Laboratory results interpreted by me: 02/14/18 02/14/18 02/14/18 12:35 12:35 12:35 RBC 1.55 L Hgb 4.0 L* Hct 12.7 L* MCH 25.8 L MCHC 31.5 L RDW 19.5 H Seg Neuts % (Manual) 79 H PT 107.7 H* INR 13.73 H* Carbon Dioxide 18 L BUN 37 H Creatinine 1.36 H Est GFR (Non-Af Amer) 51 L Glucose 118 H Lactic Acid AST 202 H ALT 151 H Creatine Kinase 243 H CK-MB (CK-2) NT-Pro-B Natriuret Pep Total Protein 5.4 L Albumin 3.0 L Urine Urobilinogen Crossmatch 02/14/18 02/14/18 02/14/18 12:35 13:33 14:45 RBC Hgb Hct MCH MCHC RDW Seg Neuts % (Manual) PT INR Carbon Dioxide BUN Creatinine Est GFR (Non-Af Amer) Glucose Lactic Acid 4.0 H AST ALT Creatine Kinase CK-MB (CK-2) 8.93 H NT-Pro-B Natriuret Pep 4450 H Total Protein Albumin Urine Urobilinogen Crossmatch See Detail 02/14/18 02/14/18 02/14/18 15:00 18:30 18:30 RBC 2.12 L Hgb 6.0 L Hct 17.4 L MCH MCHC RDW 17.2 H Seg Neuts % (Manual) PT 29.6 H D INR Carbon Dioxide BUN Creatinine Est GFR (Non-Af Amer) Glucose Lactic Acid AST ALT Creatine Kinase CK-MB (CK-2) NT-Pro-B Natriuret Pep Total Protein Albumin Urine Urobilinogen 2.0 H Crossmatch - Diagnostic Test Radiology reviewed: Image reviewed, Reports reviewed - EKG Interpretation by Me Rate: Tachycardia [place]/QRS: RBBB - Ventricular paced complexes, LAHB/LAFB When compared to previous EKG there are: Changes noted Critical Care Note - Critical Care Note Total time excluding time spent on procedures (mins): 60 - Minutes of critical care time spent in direct contact evaluating and reevaluating the patient, treating symptoms, reviewing labs and studies and speaking with family and consultants excluding any procedures Discharge - Discharge Clinical Impression: Hypotensive episode, Tachycardia, Lung nodule, Acute blood loss anemia, Elevated INR, Coagulopathy, Elevated brain natriuretic peptide (BNP) level, ASHLEY (acute kidney injury) Anemia Qualifiers: Anemia type: unspecified type Qualified Code(s): D64.9 - Anemia, unspecified Atrial fibrillation Qualifiers: Atrial fibrillation type: chronic Qualified Code(s): I48.2 - Chronic atrial fibrillation GI bleeding Qualifiers: GI bleed type/associated pathology: unspecified gastrointestinal hemorrhage type Qualified Code(s): K92.2 - Gastrointestinal hemorrhage, unspecified Diarrhea Qualifiers: Diarrhea type: unspecified type Qualified Code(s): R19.7 - Diarrhea, unspecified COPD (chronic obstructive pulmonary disease) Qualifiers: COPD type: unspecified COPD Qualified Code(s): J44.9 - Chronic obstructive pulmonary disease, unspecified Condition: Fair Disposition: [facility] Forms: Elevated Blood Pressure Referrals: SAURABH DAMON MD [Primary Care Provider] - Follow up as needed
[2018-02-14] MEDS ORDERED: NORMAL SALINE 250 ML IV PRN ×4 (14:34→15:29)
[2018-02-14] MEDS ORDERED: FUROSEMIDE INJ/PF 20 MG/2 ML SDV IV PRN (14:34)
[2018-02-14] MEDS ORDERED: ACETAMINOPHEN 325 MG TABLET PO PRN (14:34)
[2018-02-14] MEDS ORDERED: DIPHENHYDRAMINE HCL 25 MG CAPSULE PO PRN (14:34)
[2018-02-14 14:37] LABS: CREATINE KINASE MB 8.93 ng/mL (<4.55)
[2018-02-14 14:45] LABS: ABSOLUTE MONOCYTES # (MANUAL) 0.5 10^3/uL (0.1-1.4); ABSOLUTE NEUTROPHILS# (MANUAL) 5.4 10^3/uL (1.7-8.2); BASOPHILS % (MANUAL) 0 % (0-2); EOSINOPHILS % (MANUAL) 0 % (0-6); LYMPHOCYTES % (MANUAL) 14 % (13-45); MONOCYTES % (MANUAL) 7 % (3-13); SEGMENTED NEUTROPHILS % (MAN) 79 % (42-78); TOTAL CELLS COUNTED 100
[2018-02-14 14:46] LABS: TROPONIN I 0.034 ng/mL
[2018-02-14 14:48] LABS: ANISOCYTOSIS 2+; HYPOCHROMASIA 2+; OVALOCYTES SLIGHT; PLATELET COMMENT ADEQUATE; POLYCHROMASIA 1+; TEAR DROP CELLS SLIGHT
[2018-02-14 14:50] LABS: HEMATOCRIT 12.7 % (37.9-51.0); PROTHROMBIN TIME 107.7 SEC (11.4-15.4)
[2018-02-14 14:51] LABS: INTERNATIONAL RATION (INR) 13.73
[2018-02-14] MEDS ORDERED: PHYTONADIONE INJ 10 MG/1 ML AMPULE IV ONE (14:51)
--- NOTE | 2018-02-14 15:03 | RADIOLOGY REPORT (SQ) ---
EXAM DESCRIPTION: CHEST SINGLE VIEW COMPLETED DATE/TIME: 02/14/2018 2:53 pm REASON FOR STUDY: weakness COMPARISON: 12/14/2017. EXAM PARAMETERS: NUMBER OF VIEWS: One view. TECHNIQUE: Single frontal radiographic view of the chest acquired. RADIATION DOSE: NA LIMITATIONS: None. FINDINGS: LUNGS AND PLEURA: Chronic interstitial changes. Chronic elevation of the right hemidiaphr agm. Stable pleural-based mass in the upper left chest. No acute infiltrate. No pleural effusion. MEDIASTINUM AND HILAR STRUCTURES: No masses. Contour normal. HEART AND VASCULAR STRUCTURES: Heart upper limits of normal in size. Normal vasculature. BONES: Stable deformity of the ribs in the upper left chest. HARDWARE: Pacemaker and aortic valve replacement. OTHER: No other significant finding. IMPRESSION: STABLE APPEARANCE OF THE CHEST DESCRIBED. NO ACUTE FINDINGS. TECHNICAL DOCUMENTATION: JOB ID: [id number] [employer]- All Rights Reserved Reading location - IP/workstation name: [email or web address]
[2018-02-14] MEDS ORDERED: FENTANYL CITRATE INJ/PF 100 MCG/2 ML AMPUL IV ONE (15:22)
[2018-02-14 15:24] LABS: APPEARANCE,URINE CLEAR; BILIRUBIN,URINE NEGATIVE (NEGATIVE); COLOR,URINE YELLOW; GLUCOSE, URINE NEGATIVE (NEGATIVE); KETONES,URINE NEGATIVE (NEGATIVE); LEUKOCYTE ESTERASE,URINE NEGATIVE (NEGATIVE); NITRITE,URINE NEGATIVE (NEGATIVE); PROTEIN,URINE NEGATIVE (NEGATIVE); URINE SPECIFIC GRAVITY 1.015
[2018-02-14 15:57] LABS: VENOUS BLOOD BASE EXCESS -3.7 mmol/L; VENOUS BLOOD PCO2 35.2 mmHg (35-63); VENOUS BLOOD PH 7.39 (7.30-7.42)
--- NOTE | 2018-02-14 18:17 | RADIOLOGY REPORT (SQ) ---
EXAM DESCRIPTION: U/S ABDOMEN LIMITED W/O DOP COMPLETED DATE/TIME: 02/14/2018 6:08 pm REASON FOR STUDY: pain COMPARISON: None. TECHNIQUE: Dynamic and static grayscale images acquired of the abdomen and recorded on PACS. Additio nal selected color Doppler and spectral images recorded. LIMITATIONS: None. FINDINGS: PANCREAS: No masses. Visualized pancreatic duct normal caliber. LIVER: No masses. Echotexture normal. LIVER VASCULATURE: Normal directional flow of the main portal vein and hepatic veins. GALLBLADDER: There is a 2 cm stone in neck of gallbladder. ULTRASOUND-DETECTED SILVA'S SIGN: Negative. INTRAHEPATIC DUCTS AND COMMON DUCT: CBD and intrahepatic ducts normal caliber. No filling defects. INFERIOR VENA CAVA: Normal flow. AORTA: No aneurysm. The proximal aorta was not well seen. RIGHT KIDNEY: Normal size, 8.5 cm. Normal echogenicity. No solid or suspicious masses. No hydronephr osis. No calcifications. PERITONEAL AND RIGHT PLEURAL SPACE: No ascites or effusions. OTHER: No other significant findings. IMPRESSION: Cholelithiasis. TECHNICAL DOCUMENTATION: JOB ID: [id number] [employer]- All Rights Reserved Reading location - IP/workstation name: [email or web address]
[2018-02-14 18:44] LABS: HEMATOCRIT 17.4 % (37.9-51.0); MEAN CORPUSCULAR HEMOGLOBIN 28.3 pg (27.0-33.4); MEAN CORPUSCULAR HGB CONC 34.6 g/dL (32.0-36.0); MEAN CORPUSCULAR VOLUME 82 fl (80-97); PLATELET COUNT 334 10^3/uL (150-450); RED BLOOD COUNT 2.12 10^6/uL (4.35-5.55); RED CELL DISTRIBUTION WIDTH 17.2 % (11.5-14.0); WHITE BLOOD COUNT 10.1 10^3/uL (4.0-10.5)
[2018-02-14 18:49] LABS: INTERNATIONAL RATION (INR) 2.66
[2018-02-14 19:16] LABS: PROTHROMBIN TIME 29.6 SEC (11.4-15.4)
--- NOTE | 2018-02-14 19:19 | EKG REPORT ---
SEVERITY:- ABNORMAL ECG - VENTRICULAR-PACED COMPLEXES RBBB AND LAFB : Confirmed by: Earline Escobar MD 14-Feb-2018 19:18:18
[2018-02-14 20:37] VITALS: BP 153/52
[2018-02-17 12:44] LABS: PATH REVIEW PATHOLOGIST REVIEWED
== END 2018-02-14 21:00 | disposition short-term general hospital (02) ==
LOC: ER 12:58
DX: I48.2 Chronic atrial fibrillation (principal); K92.2 Gastrointestinal hemorrhage, unspecified; J44.9 Chronic obstructive pulmonary disease, unspecified; I95.9 Hypotension, unspecified; R00.0 Tachycardia, unspecified; R91.1 Solitary pulmonary nodule; D50.0 Iron deficiency anemia secondary to blood loss (chronic); D68.9 Coagulation defect, unspecified; R79.89 Other specified abnormal findings of blood chemistry; N17.9 Acute kidney failure, unspecified; R19.7 Diarrhea, unspecified; R53.1 Weakness; I10 Essential (primary) hypertension; R05 Cough; M25.512 Pain in left shoulder; M79.10 Myalgia, unspecified site; R06.02 Shortness of breath; R53.83 Other fatigue; F17.210 Nicotine dependence, cigarettes, uncomplicated; R53.81 Other malaise
CPT/HCPCS: 93005; 99406; 99291; 96361; 96374; 96375; 86900; 86901; 36415; 87040; 87086; 82553; 36430; 86850; 82550; 85025; 85027; 85610; 82272; 80053; 81001; 84484; 86920; 82803; 83605; 83880; 71045; 76705; 93010; P9017; P9016; A9270 ×2; J3010; J1940; J3430; J7050; J7120

== ENCOUNTER 2018-04-12 21:24 | Inpatient (IN) | payer MEDICARE, OTHER ==
[2018-04-12] MEDS ORDERED: ONDANSETRON HCL INJ/PF 4 MG/2 ML SDV IV ONE (21:49)
[2018-04-12] MEDS: MORPHINE SULFATE 10 MG/ML INJ IV PRN ×2 (22:04→23:35)
--- NOTE | 2018-04-12 23:27 | ER Document Report ---
ED General - General Chief Complaint: Fever Stated Complaint: RESPRITORY PROBLEM Time Seen by Provider: 04/12/18 21:47 Cannot obtain history due to: Unstable vital signs, Altered mental status Notes: Patient is a 78-year-old male with a known history of stage IV metastatic lung cancer that is terminal, referred to the emergency department for comfort measures. Provide any meaningful history. No family members at the bedside. Dr. Nyla Sagastume did call to the emergency department ahead of time to inform us that this patient has been on home hospice, his title investigator is wheelchair-bound and is no longer able to care for him as he becomes more terminal. Home hospice came to the house today, found the patient to be in very poor condition, actively dying and try to get him to an inpatient hospice setting but was unable to do so. The patient was therefore referred to the emergency department for management of his end-of-life symptoms. TRAVEL OUTSIDE OF THE [place] IN LAST 30 DAYS: No - Related Data Allergies/Adverse Reactions: No Known Drug Allergies Allergy (Verified 01/10/18 04:34) bees Allergy (Uncoded 12/14/17 16:18) Past Medical History - General Information source: Emergency Med Personnel, [facility] Records Cannot obtain history due to: Unstable vital signs, Altered mental status - Social History Smoking Status: Unknown if Ever Smoked Frequency of alcohol use: None Drug Abuse: None Lives with: Friend Family History: Reviewed & Not Pertinent Patient has suicidal ideation: No Patient has homicidal ideation: No - Past Medical History Cardiac Medical History: Reports: Hx Atrial Fibrillation, Hx Hypertension, Hx Peripheral Vascular Disease, Hx Heart Murmur Pulmonary Medical History: Reports: Hx COPD Renal/ Medical History: Denies: Hx Peritoneal Dialysis Malignancy Medical History: Reports Hx Prostate Cancer Musculoskeletal Medical History: Reports Hx Arthritis - back pains and had needle injections Past Surgical History: Reports: Hx Cardiac Surgery - TAVR aortic valve; pacemaker, Hx Orthopedic Surgery - bilateral knee meniscus repair, Hx Pacemaker, Hx Valve Replacement Review of Systems - Review of Systems -: Yes ROS unobtainable due to patient's medical condition Physical Exam - Vital signs Vitals: Temp Pulse Resp BP Pulse Ox 99.4 F 155 H 24 H 157/81 H 85 L 04/12/18 21:33 04/12/18 21:33 04/12/18 21:33 04/12/18 21:33 04/12/18 21:33 Interpretation: Tachycardic, Hypoxic, Tachypneic Notes: PHYSICAL EXAMINATION: GENERAL: Pale, listless, appears to be actively dying HEAD: Atraumatic, normocephalic. EYES: clera anicteric, conjunctiva are normal. ENT: nares patent, dry mucous membranes NECK: supple without lymphadenopathy LUNGS: Moderate tachypnea, deep rapid respirations. Scattered rales bilaterally. HEART: Regular tachycardia without murmurs ABDOMEN: Soft, No masses appreciated. EXTREMITIES: no pitting or edema. No cyanosis. NEUROLOGICAL: No focal neurological deficits. Moves all extremities spontaneously. PSYCH: Moans incomprehensibly. Does not speak. SKIN: Warm, Dry, normal turgor, no rashes or lesions noted. Course - Re-evaluation Re-evalutation: 04/12/18 23:25 Slightly totally occipital patient presents with agonal respirations, tachycardic to 155, not speaking, moderate air hunger. He was transferred to the emergency department from home hospice as his caregiver was unable to continue to provide comfort measures and he appears to be at the very end of life. I did discuss this case with his primary oncologist Dr. Nyla Sagastume who does convey this history as the patient himself is unable to provide meaningful history there is no family at the bedside. She does confirm that he is comfort measures only, DNR/DNI. I did discuss with Dr. Carpenter the hospitalist who has accepted the patient for admission - Vital Signs Vital signs: Temp Pulse Resp BP Pulse Ox 99.2 F 134 H 22 H 88/45 L 68 L 04/13/18 01:36 04/13/18 01:36 04/13/18 01:36 04/13/18 01:36 04/13/18 01:36 Discharge - Discharge Clinical Impression: Comfort measures only status Metastatic primary lung cancer Qualifiers: Laterality: unspecified laterality Qualified Code(s): C34.90 - Malignant neoplasm of unspecified part of unspecified bronchus or lung Condition: Critical Disposition: ADMITTED INPATIENT Admitting Provider: Hospitalist Unit Admitted: Medical Floor
[2018-04-12] MEDS ORDERED: MORPHINE SULFATE 10 MG/ML INJ IV PRN (23:28)
[2018-04-12] MEDS ORDERED: FENTANYL 50 MCG/HR PATCH.TD72 TD ONE (23:28)
[2018-04-12] MEDS ORDERED: LORAZEPAM INJ 2 MG/1 ML VIAL IV PRN (23:28)
[2018-04-13] MEDS: MORPHINE SULFATE 10 MG/ML INJ IV PRN ×2 (00:42→02:12)
[2018-04-13 01:47] VITALS: BP 88/45
--- NOTE | 2018-04-13 04:59 | H&P/Discharge Summary ---
Discharge Summary Admission Date/PCP: 04/13/18 00:10 SAURABH CALLAHAN MD Discharge Date: 04/13/18 Resuscitation Status: Do Not Resuscitate - Discharge Diagnosis (1) Comfort measures only status Is this a current diagnosis for this admission?: Yes Summary: Supportive care, hospice consulted (2) Metastatic primary lung cancer Is this a current diagnosis for this admission?: Yes Summary: Supportive [facility] Medications: Digoxin [Lanoxin] 250 mcg PO DAILY 06/19/17 Gabapentin 600 mg PO BID 06/19/17 Guaifenesin [Mucinex] 600 mg PO Q12HP PRN 06/19/17 Melatonin 5 mg PO HSP PRN 06/19/17 Sennosides [Senna Lax] 8.6 mg PO DAILYP PRN 06/19/17 Allergies/Adverse Reactions: No Known Drug Allergies Allergy (Verified 01/10/18 04:34) bees Allergy (Uncoded 12/14/17 16:18) History of Present Illness Admission Date/PCP: 04/13/18 00:10 SAURABH CALLAHAN MD Patient complains of: Shortness of breath History of Present Illness: NATHANAEL LYONS is a 78 year old male with a history of terminal stage IV metastatic lung cancer who is referred to the emergency department for comfort measures. Patient is unable to provide any meaningful history, no family at bedside, oncologist Dr. Callahan contact emergency department provider regarding patient's lack of resources from home. Home hospice unable to provide adequate pain control and independent setting prompting referral to the emergency department. He is currently unresponsive, referred to the hospitalist for comfort measures only. Several hours after transfer to the medical floor patient at 4:10 AM Past Medical History Cardiac Medical History: Reports: Atrial Fibrillation, Hypertension, Peripheral Vascular Disease, Heart Murmur Pulmonary Medical History: Reports: Chronic Obstructive Pulmonary Disease (COPD) Musculoskeltal Medical History: Reports: Arthritis - back pains and had needle injections Past Surgical History Past Surgical History: Reports: Orthopedic Surgery - bilateral knee meniscus repair, Pacemaker, Valve Replacement Social History Information Source: [facility] Records Lives with: Friend Smoking Status: Unknown if Ever Smoked Frequency of Alcohol Use: Occasional Hx Recreational Drug Use: No Drugs: None Hx Prescription Drug Abuse: No - Advance Directive Resuscitation Status: Do Not Resuscitate Family History Family History: Other - Unobtainable Parental Family History Reviewed: No - Unobtainable Children Family History Reviewed: No - Unobtainable Sibling(s) Family History Reviewed.: No - unobtainable Review of Systems ROS unobtainable: Due to mental status - Unobtainable Constitutional: ABSENT: chills, fever(s), headache(s), weight gain, weight loss Eyes: ABSENT: visual disturbances Ears: ABSENT: hearing changes Cardiovascular: ABSENT: chest pain, dyspnea on exertion, edema, orthropnea, palpitations Respiratory: ABSENT: cough, hemoptysis Gastrointestinal: ABSENT: abdominal pain, constipation, diarrhea, hematemesis, hematochezia, nausea, vomiting Genitourinary: ABSENT: dysuria, hematuria Musculoskeletal: ABSENT: joint swelling Integumentary: ABSENT: rash, wounds Neurological: ABSENT: abnormal gait, abnormal speech, confusion, dizziness, focal weakness, syncope Psychiatric: ABSENT: anxiety, depression, homidical ideation, suicidal ideation Endocrine: ABSENT: cold intolerance, heat intolerance, polydipsia, polyuria Hematologic/Lymphatic: ABSENT: easy bleeding, easy bruising Physical Exam Vital Signs: Temp Pulse Resp BP Pulse Ox 99.2 F 134 H 22 H 88/45 L 68 L 04/13/18 01:36 04/13/18 01:36 04/13/18 01:36 04/13/18 01:36 04/13/18 01:36 Intake & Output 04/11/18 04/12/18 04/13/18 11:59 11:59 11:59 Weight 51.6 kg General appearance: PRESENT: disheveled, hard of hearing, other - Ashen, with cachexia, profoundly acute and chronic ill appearing.. ABSENT: cooperative Head exam: PRESENT: atraumatic, normocephalic Eye exam: PRESENT: conjunctival injection, conjunctiva pale, EOMI. ABSENT: periorbital swelling Ear exam: PRESENT: normal external ear exam Mouth exam: PRESENT: dry mucosa. ABSENT: laceration, moist Teeth exam: ABSENT: dental caries Neck exam: PRESENT: lymphadenopathy. ABSENT: carotid bruit, JVD, tracheostomy Respiratory exam: PRESENT: accessory muscle use, symmetrical, tachypnea. ABSENT: rhonchi, stridor Cardiovascular exam: PRESENT: bradycardia, irregular rhythm. ABSENT: diastolic murmur Pulses: PRESENT: normal dorsalis pedis pul Vascular exam: PRESENT: normal capillary refill GI/Abdominal exam: PRESENT: diminished bowel sounds. ABSENT: ascites, distended Rectal exam: PRESENT: deferred Extremities exam: ABSENT: calf tenderness, clubbing, full ROM Neurological exam: PRESENT: altered. ABSENT: alert, awake, oriented to person, CN II-XII grossly intact, motor sensory deficit Psychiatric exam: PRESENT: flat affect. ABSENT: homicidal ideation, manic, normal mood Skin exam: PRESENT: dry, intact, warm. ABSENT: cyanosis, rash Qualifiers - * PATIENT BEING DISCHARGED WITH ANY OF THE FOLLOWING DIAGNOSIS: No Assessment & Plan - Time Time Spent: 30 to 50 Minutes - Plan Summary Plan Summary: NATHANAEL LYONS is a 78 year old male with a history of terminal stage IV metastatic lung cancer who is referred to the emergency department for comfort measures. Patient is unable to provide any meaningful history, no family at bedside, oncologist Dr. Callahan contact emergency department provider regarding patient's lack of resources from home. Home hospice unable to provide adequate pain control and independent setting prompting referral to the emergency department. He is currently unresponsive, referred to the hospitalist for comfort measures only. Several hours after transfer to the medical floor patient at 4:10 AM
== END 2018-04-13 05:10 | disposition left against medical advice (07) | DRG 181 ==
LOC: ER 21:24 → EH 04-13 00:10 → 4N 04-13 02:46
PROVIDERS: ADMIT Internal Medicine; ATTEND Internal Medicine
DX: C34.90 Malignant neoplasm of unspecified part of unspecified bronchus or lung (principal); C79.82 Secondary malignant neoplasm of genital organs; Z66 Do not resuscitate; R50.9 Fever, unspecified; Z95.0 Presence of cardiac pacemaker; Z95.2 Presence of prosthetic heart valve
CPT/HCPCS: 99284; J2270; J2405; J3490